=== PATIENT | male | born 1960 | race Caucasian/White ===

== ENCOUNTER → 2020-08-30 14:05 | Outpatient (BNVA) | payer MEDICARE, MEDICAID, SELFPAY | PROVIDERS: PCP Hospitalist; Visit Provider Urology | DX: R97.20 Elevated prostate specific antigen [PSA] (principal) | CPT/HCPCS: Q3014 ==

== ENCOUNTER 2020-08-31 13:44 | Outpatient (REF) | payer MEDICARE, MEDICAID, SELFPAY ==
[2020-08-31 15:39] LABS: PSA,Total (Free>4and<10) 0.08 ng/mL (0.00-4.00)
== END 2020-08-31 13:45 | disposition home or self-care (01) ==
LOC: HO.LAB 13:44
PROVIDERS: PCP Hospitalist; Visit Provider Urology
DX: R97.20 Elevated prostate specific antigen [PSA] (principal); N40.1 Benign prostatic hyperplasia with lower urinary tract symptoms; N13.8 Other obstructive and reflux uropathy; Z12.5 Encounter for screening for malignant neoplasm of prostate
CPT/HCPCS: 36415; 84153

== ENCOUNTER 2020-11-01 15:42 | Outpatient (REF) | payer MEDICARE, MEDICAID, SELFPAY | END 2020-11-01 15:43 | disposition home or self-care (01) | LOC: HO.LAB 15:42 | PROVIDERS: Visit Provider Urology | DX: R97.20 Elevated prostate specific antigen [PSA] (principal); Z12.5 Encounter for screening for malignant neoplasm of prostate | CPT/HCPCS: 36415; 84153 ==

== ENCOUNTER → 2020-11-10 14:23 | Outpatient (BNVA) | payer MEDICARE, MEDICAID, SELFPAY | PROVIDERS: PCP Internal Medicine; Visit Provider Urology | DX: Z13.89 Encounter for screening for other disorder (principal) | CPT/HCPCS: Q3014 ==

== ENCOUNTER 2021-11-23 12:20 | Outpatient (REF) | payer MEDICARE, MEDICAID, SELFPAY ==
[2021-11-23 13:58] LABS: Prostate Specific Antigen 0.14 ng/mL (<0.05-4.0)
== END 2021-11-23 12:21 | disposition home or self-care (01) ==
LOC: HO.10HDL 12:20
PROVIDERS: PCP Nurse Practitioner Family; Visit Provider Urology
DX: N40.1 Benign prostatic hyperplasia with lower urinary tract symptoms (principal); N13.8 Other obstructive and reflux uropathy; Z12.5 Encounter for screening for malignant neoplasm of prostate
CPT/HCPCS: 36415; 84153

== ENCOUNTER 2022-10-10 15:34 | Outpatient (REF) | payer MEDICARE, MEDICAID, SELFPAY ==
--- NOTE | ~2022-10-10 | US_ITS ---
EXAMINATION: US ABDOMEN COMPLETE CLINICAL INFORMATION: Liver fibrosis; hepatitis C. COMPARISON: Ultrasound abdomen complete 04/27/2020 and 11/15/2017. X-ray abdomen KUB 04/08/2015. TECHNIQUE: Real-time imaging of the abdominal viscera. FINDINGS: PANCREAS: Normal. ABDOMINAL AORTA: The proximal, mid, and distal segments are normal in caliber. INFERIOR VENA CAVA: Visualized portions are normal. LIVER: Normal. The liver is normal in size. The liver contour is normal. Parenchymal echogenicity is normal. No focal hepatic lesion. There is no intrahepatic biliary duct dilatation seen. GALLBLADDER: Normal. The gallbladder is physiologically distended without evidence of stones, sludge, polyps, wall thickening or pericholecystic fluid. COMMON BILE DUCT: Normal in caliber measuring 0.3 cm in diameter. RIGHT KIDNEY: At the upper pole, an 8 mm benign, simple cyst is seen. No hydronephrosis or renal calculi. The kidney measures 10.0 cm in maximum dimension. LEFT KIDNEY: Normal. No hydronephrosis. No renal calculi or focal parenchymal lesions. The kidney measures 10.4 cm in maximum dimension. SPLEEN: Normal. The spleen measures 12.4 cm in maximum dimension. FREE FLUID: None. US/US abdomen complete IMPRESSION: An 8 mm benign, simple right renal upper pole cyst is seen. This requires no imaging follow-up. The examination is otherwise unremarkable.
== END 2022-10-10 15:35 | disposition home or self-care (01) ==
LOC: HO.US 15:34
PROVIDERS: PCP Nurse Practitioner Family; Visit Provider Internal Medicine
DX: K74.00 Hepatic fibrosis, unspecified (principal); Z86.19 Personal history of other infectious and parasitic diseases
CPT/HCPCS: 76700

== ENCOUNTER 2022-12-19 12:22 | Outpatient (REF) | payer MEDICARE, MEDICAID, SELFPAY ==
[2022-12-19 13:50] LABS: MANUAL DIFF FLAG NO
[2022-12-19 14:06] LABS: Basophils Percent Auto 0.7 % (0-2); Hematocrit 40.1 % (42.0-52.0); Hemoglobin 13.1 g/dl (14.0-18.0); Imm Gran Abs Auto 0.01 X10*3/uL (0.00-0.03); Imm Gran Pct Auto 0.3 % (0.0-0.4); Lymphocytes Absolute Auto 0.8 X10*3/uL (1.2-4.9); Lymphocytes Percent Auto 26.1 % (20-40); Mean Corpuscular HGB Conc 32.7 g/dl (31.0-36.0); Mean Corpuscular Hemoglobin 29.6 pg (27.0-33.0); Mean Corpuscular Volume 90.7 fL (80.0-98.0); Mean Platelet Volume 10.7 fL (9.4-12.4); Monocytes Absolute Auto 0.3 X10*3/uL (0.1-1.2); Monocytes Percent Auto 9.1 % (2-11); Neutrophils Percent Auto 63.8 % (45-73); Platelet Count 188 X10*3/uL (160-400); Red Blood Count 4.42 X10*6/uL (4.60-5.80); Red Cell Distribution Width 12.8 % (11.0-16.0); White Blood Count 3.1 X10*3/uL (4.8-10.8)
[2022-12-19 14:20] LABS: Alanine Aminotransferase 20 U/L (0-40); Albumin Level 4.1 g/dL (3.5-5.0); Alkaline Phosphatase 75 U/L (39-117); Aspartate Amino Transferase 25 U/L (5-37); Bilirubin Direct 0.2 mg/dL (0.0-0.5); Bilirubin Total 0.6 mg/dL (0.0-1.0); Total Protein 6.6 g/dL (6.5-8.0)
[2022-12-21 14:38] LABS: Alpha Fetoprotein 0.8 ng/mL (<6.1)
[2022-12-25 14:58] LABS: FIB-ALT 18 U/L (9-46); FIB-Alpha-2-Macroglobulin 410 mg/dL (106-279); FIB-Apolipoprotein A1 192 mg/dL (94-176); FIB-GGT 11 U/L (3-70); FIB-Haptoglobin 74 mg/dL (43-212); FIB-Total Bilirubin 0.4 mg/dL (0.2-1.2); Liver Fibrosis Score 0.42; Liver Fibrosis Stage F1-F2; Nec Inflam Act Grade A0; Nec Inflam Act Score 0.08
== END 2022-12-19 12:23 | disposition home or self-care (01) ==
LOC: HO.10HDL 12:22
PROVIDERS: Visit Provider Internal Medicine
DX: K74.00 Hepatic fibrosis, unspecified (principal); Z86.19 Personal history of other infectious and parasitic diseases
CPT/HCPCS: 36415; 80076; 81596; 82105; 85025; 85610

== ENCOUNTER 2023-03-07 08:23 | Day surgery (SDC) | payer MEDICARE, MEDICAID, SELFPAY ==
[2023-03-07 08:53] VITALS: BMI 28.8
[2023-03-07 09:10] VITALS: BP 131/74; PULSE 67; RESP 18; TEMP 36.1; O2SAT 95
[2023-03-07] MEDS: Lactated Ringers 1,000 ML 100 ML IVCONT (09:12)
--- NOTE | 2023-03-07 09:35 | P.CONAN_ITS ---
HPI - Anesthesia Eval Consult details Narrative: 63 yo male patient for EGD, Colonoscopy PMF Active Problems Active Problems: All Active Problems (Updated 03/07/23 @ 09:36 by Rufina Blas MD) Elevated PSA (Acute) GERD Migraine Past Medical History Medical History Asthma BPH (benign prostatic hyperplasia) Chronic hepatitis C Depression Elevated PSA Hypothyroidism Nephrotic syndrome Substance abuse Thyroiditis Family History Family history of problems with anesthesia: No Surgical History Surgical History H/O esophagogastroduodenoscopy History of prostate surgery History of Problems with Anesthesia: No Social History Social History Patient Tobacco Use Status: Former Tobacco user Quit Date: age 29 Use of substances other than those prescribed or required for medical reasons: Yes Substance Use Type Other:: methadone for previous heroine use, last used 2013 Are you DNR?: No Advance Directives: No Advance Directives Information Provided: Yes Meds Allergies Allergy/AdvReac Type Severity Reaction Status Date / Time No Known Allergies Allergy Mild NOT Verified 11/10/20 14:25 APPLICABLE Active Medications: Current Medications Albuterol Sulfate (Albuterol Sulfate (0.083%) 2.5 Mg/3 Ml Vial.Neb) 2.5 mg I NHALE ONCE PRN PRN Reason: Shortness of Breath/Wheezing Lactated Ringer's (Lr) 1,000 mls @ 100 mls/hr IVCONT .Q10H FABRICIO Last Admin: 03/07/23 09:12 Dose: 100 mls/hr Sodium Biphosphate/Sodium Phosphate (Sodium Phosphate,Pender-Dibasic 133 Ml Enema) 133 ml [place] ONCE PRN PRN Reason: Poor Colonoscopy Prep Results Home Medications Medication Instructions Recorded Confirmed Last Taken Type levothyroxine 50 mcg tablet 50 mcg PO DAILY 08/30/20 03/07/23 03/07/23 History ondansetron HCl 4 mg tablet 4 mg PO Q8H PRN Nausea 08/30/20 03/07/23 Unknown History sumatriptan succinate 100 mg tablet 100 mg PO DIRECTED 11/10/20 03/07/23 Unknown History CoQ-10 1 tab PO DAILY 03/06/23 03/07/23 Unknown History Vitamin D (with calcium) 1 tab PO DAILY 03/06/23 03/07/23 Unknown History famotidine 40 mg tablet 40 mg PO BID 03/06/23 03/06/23 03/07/23 History methadone 1 ml PO DAILY 03/06/23 03/07/23 Unknown History omega 3-vjg-xcy-fish oil 1,000 mg 1 cap PO DAILY 03/06/23 03/07/23 Unknown History (120 mg-180 mg) capsule (Fish Oil) vitamin E73-ksqbq acid 1 tab PO DAILY 03/06/23 03/07/23 Unknown History Exam Exam Date and Time: March 07, 2023 0935 Height,Weight and Vital Signs: Height 5 ft 9 in Weight 88.451 kg Last Vital Signs Temp 96.9 F 03/07/23 09:10 Pulse 67 03/07/23 09:10 Resp 18 03/07/23 09:10 BP 131/74 03/07/23 09:10 Pulse Ox 95 03/07/23 09:10 O2 Del Method Room Air 03/07/23 09:10 Airway Mallampati Class: I TM Dist: >3cm Neck ROM: Full Loose/Missing/Broken Teeth: Yes (Loose tooth top right back) Heart: RRR Lungs: CTAB Assessment and Plan Assessment Anesthesia Assessment: Anesthesia Plan Discussed and Chart Reviewed Final Anesthetic Review Family History of Problems with Anesthesia: No History of Problems with Anesthesia: No NPO: Yes ASA Class: III Final Preanesthetic Review: No Changes in Pt Med Stat, Meds/Allgs Chart Reviewed, Consent Obtained/Reviewed and Anes Risks/Benef Reviewed Patient Risk: Intermediate Procedure Risk: Low Assessment/Block/Sedation in SS: Assess/Block/Sedation-SS Anesthetic Plan Anesthetic Plan: MAC: Disposition: Standard PACU
[2023-03-07 10:43] VITALS: BP 102/63; PULSE 65; RESP 16; TEMP 36.1; O2SAT 96
--- NOTE | 2023-03-07 10:46 | P.BOP_ITS ---
Brief Operative Note Date of Service: 03/07/23 Pre-op diagnosis: GERD, Steele's, Screening Post-op diagnosis: other (Hiatal hernia, Diverticulosis) Procedure: EGD with biopsies, Colonoscopy to the cecum and TI Surgeon: Dex Garsia Anesthesia: MAC Was an Senior Cyber Intelligence Analyst used for this Procedure?: No Estimated blood loss (mL): 2.0 Pathology: other (A. EG Junction at 35cm) Condition: stable Disposition: PACU
[2023-03-07 10:57] VITALS: BP 107/64; PULSE 76; RESP 16; TEMP 36.1; O2SAT 96
--- NOTE | 2023-03-07 12:59 | OP_ITS ---
DATE OF SERVICE: 03/07/2023 SURGEON: Dex Garsia MD INDICATIONS: The patient presents for evaluation of gastroesophageal reflux, Steele's esophagus, personal history of tubular adenoma of the colon, and colorectal cancer screening. Full consent has been obtained from him for this, including risks of bleeding and perforation. PREOPERATIVE DIAGNOSIS: POSTOPERATIVE DIAGNOSIS: PROCEDURE PERFORMED: Esophagogastroduodenoscopy with biopsies, and colonoscopy to the cecum and terminal ileum. ESTIMATED BLOOD LOSS: COMPLICATIONS: ANESTHESIA: Monitored anesthesia care. ASSISTANTS: SPECIMENS: PREOPERATIVE DIAGNOSES: Gastroesophageal reflux, history of Steele's esophagus, colorectal cancer screening, history of tubular adenoma of the colon. POSTOPERATIVE DIAGNOSES: Gastroesophageal reflux, history of Steele's esophagus, colorectal cancer screening, history of tubular adenoma of the colon, hiatal hernia, diverticulosis, internal hemorrhoids. DESCRIPTION OF PROCEDURE: The patient was placed in the left lateral decubitus position. The Olympus video gastroscope was passed in the posterior oropharynx and upper esophagus under direct vision. The scope was passed slowly to the distal esophagus. The gastroesophageal junction appeared at 35 cm. There was some very minimal irregularity consistent with reflux and possible small areas of Steele's mucosa. There was no esophagitis nor any lesions. The scope was advanced to the pylorus and the duodenum was cannulated to the descending portion. The duodenum including the bulb appeared normal without mass or ulceration. The scope was withdrawn back in the stomach. The gastric antrum and body appeared normal with good peristalsis. The scope was retroflexed visualizing the proximal stomach carefully, which appeared normal, without any sign of mass or ulceration. The scope was straightened and withdrawn back to the esophagus. A small hiatal hernia was noted. Biopsies were obtained at the EG junction at 35 cm. Proximal to that, the esophageal mucosa appeared normal. The scope was withdrawn from the patient. He was turned around for the colonoscopy. The digital rectal exam revealed no abnormalities. The Olympus video pediatric colonoscope was entered into the rectum and advanced easily to the cecum. Once in the cecum, I did identify normal-appearing cecal pouch with appendiceal orifice and a normal-appearing ileocecal valve. The terminal ileum was cannulated and appeared normal. The scope was withdrawn back in the colon. The entire cecum and ileocecal valve appeared normal. The scope was slowly withdrawn assessing all mucosal surfaces carefully. Preparation was excellent. I did not visualize any sign of polyps, colitis, nor angiodysplasia. There was a mild amount of sigmoid diverticulosis. In the rectum, scope was retroflexed visualizing internal hemorrhoids, but no other pathology. The rectal mucosa appeared normal. The scope was straightened and withdrawn from the patient, he tolerated both procedures well and was returned to the recovery area in stable condition. IMPRESSION: 1. Small hiatal hernia, gastroesophageal reflux, history of Steele's esophagus. 2. Diverticulosis. 3. Internal hemorrhoids. PLAN: The results of the biopsies will be checked. I would recommend a repeat upper endoscopy and colonoscopy in 5 years, assuming there is no dysplasia within the Steele's mucosa. He will continue famotidine. He was advised to continue Metamucil as well. He was advised to see me in 2023 for followup in regard to his previous history of hepatitis C. MD SHAD Durán/ALESSIO / [id number] MTDD
== END 2023-03-07 11:30 | disposition home or self-care (01) ==
PROVIDERS: PCP Nurse Practitioner Family; Visit Provider Internal Medicine
PROC: (CPT 43239; principal; 2023-03-07 09:30)
DX: Z12.11 Encounter for screening for malignant neoplasm of colon (principal); Z86.010 Personal history of colon polyps; K57.30 Diverticulosis of large intestine without perforation or abscess without bleeding; K64.8 Other hemorrhoids; K58.2 Mixed irritable bowel syndrome; K74.00 Hepatic fibrosis, unspecified; K22.70 Barrett's esophagus without dysplasia; K21.9 Gastro-esophageal reflux disease without esophagitis; K44.9 Diaphragmatic hernia without obstruction or gangrene; Z86.19 Personal history of other infectious and parasitic diseases; N04.9 Nephrotic syndrome with unspecified morphologic changes; F11.20 Opioid dependence, uncomplicated; J45.909 Unspecified asthma, uncomplicated; Z79.899 Other long term (current) drug therapy; Z87.891 Personal history of nicotine dependence
CPT/HCPCS: 43239; G0105; 88305

== ENCOUNTER 2023-09-27 08:57 | Outpatient (REF) | payer MEDICARE, MEDICAID, SELFPAY ==
--- NOTE | ~2023-09-27 | US_ITS ---
EXAMINATION: US COMPLETE ABDOMEN WITH LIVER ELASTOGRAPHY CLINICAL INFORMATION: History of hepatitis C, with hepatic fibrosis. COMPARISON: None available. TECHNIQUE: Real-time imaging of the abdominal viscera. Noninvasive ultrasound liver fibrosis assessment is performed using Shubham ElastPQ point quantification shear wave elastography (2D-SWE) with a C5-2 MHz transducer. Multiple elastography samples are obtained. FINDINGS: PANCREAS: Limited. The visualized pancreatic head and body are normal in appearance. The remainder of the pancreas is obscured from visualization by the overlying bowel gas. ABDOMINAL AORTA: The proximal, middle, and distal aortic segments are normal in caliber. INFERIOR VENA CAVA: Visualized portions are normal. LIVER: The liver demonstrates normal size, contour and increased echogenicity. No focal lesion or intrahepatic biliary duct dilatation. The right lobe measures 13.8 cm in length. The left lobe measures 8.7 cm in length. Portal flow is towards the liver (hepatopetal). Shear wave liver elastography median stiffness is 1.27 m/s (reference: normal median stiffness is 1.3 m/s or less). IQR/median stiffness to assess sampling precision is 0.05 (reference: good quality data set is IQR/median stiffness of 0.15 or less). GALLBLADDER: Normal. The gallbladder is physiologically distended without evidence of stones, sludge, polyps, wall thickening or pericholecystic fluid. COMMON BILE DUCT: Normal in caliber measuring 0.6 cm in diameter. RIGHT KIDNEY: A 9 mm benign, simple cyst is seen at the upper pole, for which no imaging follow-up is recommended. No hydronephrosis. No renal calculi or focal parenchymal lesions. The kidney measures 9.6 cm in maximum dimension. LEFT KIDNEY: Normal. No hydronephrosis. No renal calculi or focal parenchymal lesions. The kidney measures 10.0 cm in maximum dimension. SPLEEN: No focal finding. The spleen measures 13.2 cm in maximum dimension. FREE FLUID: None. US/US abdomen comp w elastography IMPRESSION: 1. There is generalized increase in hepatic echotexture, consistent with fatty infiltration or hepatocellular disease. Please correlate clinically. No focal hepatic mass or intrahepatic biliary dilatation is seen. 2. Liver elastography: Measurements are consistent with a high probability of normal liver stiffness. 3. There is mild splenomegaly. 4. Technically limited ultrasound examination of the pancreatic tail. REFERENCE: Society of Radiologists in Ultrasound Liver Stiffness Thresholds (2020): LIVER STIFFNESS THRESHOLDS: *Liver Stiffness equal or less than 1.3 m/s: High probability of being normal. *Liver Stiffness less than 1.7 m/s: In the absence of other known clinical signs, rules out compensated advanced chronic liver disease. *Liver Stiffness 1.7-2.1 m/s: Suggestive of compensated advanced chronic liver disease but need further test for confirmation. *Liver Stiffness over 2.1 m/s: Rules in compensated advanced chronic liver disease. *Liver Stiffness over 2.4 m/s: Suggestive of clinically significant portal hypertension. QUALITY OF DATA SET: *IQR/Median value equal or less than 0.15 implies a quality data set. *IQR/Median value over 0.15 implies a poor quality data set. SIGNIFICANT CHANGE FROM PRIOR EXAM: Significant change if liver stiffness measurement is 10% or greater from prior exam. OTHER CONSIDERATIONS: The stage of liver fibrosis may be overestimated in the setting of acute hepatitis, liver inflammation, elevated liver function tests, hepatic vascular congestion, obstructive cholestasis, non-fasting state, and infiltrative diseases such as amyloidosis and lymphoma. In some patients with NAFLD, the liver stiffness thresholds for compensated advanced chronic liver disease may be lower. In causes other than viral hepatitis and NAFLD, liver stiffness thresholds are not well established.
== END 2023-09-27 08:58 | disposition home or self-care (01) ==
LOC: HO.US 08:57
PROVIDERS: PCP Nurse Practitioner Family; Visit Provider Internal Medicine
DX: K74.00 Hepatic fibrosis, unspecified (principal); Z86.19 Personal history of other infectious and parasitic diseases
CPT/HCPCS: 76700; 76981

== ENCOUNTER 2023-12-26 06:42 | Day surgery (SDC) | payer MEDICARE, MEDICAID, SELFPAY ==
[2023-12-24 14:00] VITALS: BMI 28.9
--- NOTE | 2023-12-25 09:38 | P.CONAN_ITS ---
HPI - Anesthesia Eval Consult details Narrative: 63yo M for Upper Endoscopy Methadone daily PMFSH Active Problems Active Problems: All Active Problems Elevated PSA (Acute) Past Medical History Medical History Nephrotic syndrome Asthma Substance abuse Depression Thyroiditis Chronic hepatitis C Hypothyroidism BPH (benign prostatic hyperplasia) Elevated PSA Family History Family history of problems with anesthesia: No Surgical History Surgical History H/O colonoscopy H/O esophagogastroduodenoscopy History of prostate surgery History of Problems with Anesthesia: No Social History Social History Patient Tobacco Use Status: Former Tobacco user Are you DNR?: No Advance Directives: No Advance Directives Information Provided: Yes Meds Allergies Allergy/AdvReac Type Severity Reaction Status Date / Time No Known Allergies Allergy Mild NOT Verified 11/10/20 14:25 APPLICABLE Home Medications ?Medication ?Instructions ?Recorded ?Confirmed ?Last Taken ?Type levothyroxine 50 mcg tablet 50 mcg PO DAILY 08/30/20 12/24/23 03/07/23 History ondansetron HCl 4 mg tablet 4 mg PO Q8H PRN Nausea 08/30/20 12/24/23 Unknown Hi story sumatriptan succinate 100 mg tablet 100 mg PO DIRECTED 11/10/20 12/24/23 Unknown History famotidine 40 mg tablet 40 mg PO BID 03/06/23 12/24/23 03/07/23 History omega 1-xdt-kzn-fish oil 1,000 mg 1 cap PO DAILY 03/06/23 12/24/23 Unknown History (120 mg-180 mg) capsule (Fish Oil) cholecalciferol (vitamin D3) 50 50 mcg PO DAILY 12/24/23 12/24/23 Unknown History mcg (2,000 unit) capsule (Vitamin D3) coQ10 (ubiquinol) 100 mg capsule 100 mg PO DAILY 12/24/23 12/24/23 Unknown History cyanocobalamin (vitamin B-12) 500 500 mcg PO DAILY 12/24/23 12/24/23 Unknown Hi story mcg tablet (Vitamin B-12) methadone 10 mg/mL oral concentrate 64 mg PO DAILY 12/24/23 12/26/2312/24/24 09:00 History Exam Height,Weight and Vital Signs: Height 5 ft 8.5 in Weight 87.543 kg Assessment and Plan Assessment Anesthesia Assessment: Chart Reviewed Final Anesthetic Review Family History of Problems with Anesthesia: No History of Problems with Anesthesia: No
[2023-12-26 08:39] VITALS: BMI 29.4
--- NOTE | 2023-12-26 08:54 | P.CONAN_ITS ---
[facility] Active Problems Active Problems: All Active Problems Elevated PSA (Acute) Past Medical History Medical History Nephrotic syndrome Asthma Substance abuse Depression Thyroiditis Chronic hepatitis C Hypothyroidism BPH (benign prostatic hyperplasia) Elevated PSA Functional capacity: independent ambulation Family History Family history of problems with anesthesia: No Surgical History Surgical History H/O colonoscopy H/O esophagogastroduodenoscopy History of prostate surgery History of Problems with Anesthesia: No Social History Social History Patient Tobacco Use Status: Former Tobacco user Quit Date: 40 yr ago Are you DNR?: No Advance Directives: No Advance Directives Information Provided: Yes Meds Allergies Allergy/AdvReac Type Severity Reaction Status Date / Time No Known Allergies Allergy Mild NOT Verified 11/10/20 14:25 APPLICABLE Active Medications: Current Medications Albuterol Sulfate (Albuterol Sulfate (0.083%) 2.5 Mg/3 Ml Vial.Neb) 2.5 mg INHALE ONCE PRN PRN Reason: Shortness of Breath/Wheezing Lactated Ringer's (Lr) 1,000 mls @ 100 mls/hr IVCONT .Q10H FABRICIO Home Medications ?Medication ?Instructions ?Recorded ?Confirmed ?Last Taken ?Type levothyroxine 50 mcg tablet 50 mcg PO DAILY 08/30/20 12/24/23 03/07/23 History ondansetron HCl 4 mg tablet 4 mg PO Q8H PRN Nausea 08/30/20 12/24/23 Unknown History sumatriptan succinate 100 mg tablet 100 mg PO DIRECTED 11/10/20 12/24/23 Unknown History famotidine 40 mg tablet 40 mg PO BID 03/06/23 12/24/23 03/07/23 History omega 8-xfh-exz-fish oil 1,000 mg 1 cap PO DAILY 03/06/23 12/24/23 Unknown History (120 mg-180 mg) capsule (Fish Oil) cholecalciferol (vitamin D3) 50 50 mcg PO DAILY 12/24/23 12/24/23 Unknown Hist ory mcg (2,000 unit) capsule (Vitamin D3) coQ10 (ubiquinol) 100 mg capsule 100 mg PO DAILY 12/24/23 12/24/23 Unknown History cyanocobalamin (vitamin B-12) 500 500 mcg PO DAILY 12/24/23 12/24/23 Unknown History mcg tablet (Vitamin B-12) methadone 10 mg/mL oral concentrate 64 mg PO DAILY 12/24/23 12/26/23 12/25/23 09:00 History Exam Height,Weight and Vital Signs: Height 5 ft 8.5 in Weight 89.131 kg Airway Mallampati Class: III TM Dist: >3cm Neck ROM: Full Heart: RRR Lungs: CTA Assessment and Plan Assessment Anesthesia Assessment: Anesthesia Plan Discussed Final Anesthetic Review Family History of Problems with Anesthesia: No History of Problems with Anesthesia: No ASA Class: III Final Preanesthetic Review: Meds/Allgs Chart Reviewed, Consent Obtained/Reviewed and Anes Risks/Benef Reviewed
[2023-12-26 09:03] VITALS: BP 128/66; PULSE 49; RESP 18; TEMP 35.9; O2SAT 98
[2023-12-26] MEDS: Lactated Ringers 1,000 ML 100 ML IVCONT (09:12)
--- NOTE | 2023-12-26 10:40 | HO.ANESPROP2 ---
[facility] Active Problems Active Problems: All Active Problems Elevated PSA (Acute) Past Medical History Medical History Nephrotic syndrome Asthma Substance abuse Depression Thyroiditis Chronic hepatitis C Hypothyroidism BPH (benign prostatic hyperplasia) Elevated PSA Functional capacity: independent ambulation Family History Family history of problems with anesthesia: No Surgical History Surgical History H/O colonoscopy H/O esophagogastroduodenoscopy History of prostate surgery History of Problems with Anesthesia: No Social History Social History Patient Tobacco Use Status: Former Tobacco user Quit Date: 40 yr ago Are you DNR?: No Advance Directives: No Advance Directives Information Provided: Yes Meds Allergies Allergy/AdvReac Type Severity Reaction Status Date / Time No Known Allergies Allergy Mild NOT Verified 11/10/20 14:25 APPLICABLE Active Medications: Current Medications Albuterol Sulfate (Albuterol Sulfate (0.083%) 2.5 Mg/3 Ml Vial.Neb) 2.5 mg INHALE ONCE PRN PRN Reason: Shortness of Breath/Wheezing Lactated Ringer's (Lr) 1,000 mls @ 100 mls/hr IVCONT .Q10H FABRICIO Last Admin: 12/26/23 09:12 Dose: 100 mls/hr Home Medications ?Medication ?Instructions ?Recorded ?Confirmed ?Last Taken ?Type levothyroxine 50 mcg tablet 50 mcg PO DAILY 08/30/20 12/24/23 03/07/23 History ondansetron HCl 4 mg tablet 4 mg PO Q8H PRN Nausea 08/30/20 12/24/23 Unknown History sumatriptan succinate 100 mg tablet 100 mg PO DIRECTED 11/10/20 12/24/23 Unknown History famotidine 40 mg tablet 40 mg PO BID 03/06/23 12/24/23 03/07/23 History omega 2-csa-obp-fish oil 1,000 mg 1 cap PO DAILY 03/06/23 12/24/23 Unknown History (120 mg-180 mg) capsule (Fish Oil) cholecalciferol (vitamin D3) 50 50 mcg PO DAILY 12/24/23 12/24/23 Unknown History mcg (2,000 unit) capsule (Vitamin D3) coQ10 (ubiquinol) 100 mg capsule 100 mg PO DAILY 12/24/23 12/24/23 Unknown History cyanocobalamin (vitamin B-12) 500 500 mcg PO DAILY 12/24/23 12/24/23 Unknown History mcg tablet (Vitamin B-12) methadone 10 mg/mL oral concentrate 64 mg PO DAILY 12/24/23 12/26/23 12/25/23 09:00 History Exam Height,Weight and Vital Signs: Height 5 ft 8.5 in Weight 89.131 kg Last Vital Signs Temp 96.7 F L 12/26/23 09:03 Pulse 49 L 12/26/23 09:03 Resp 18 12/26/23 09:03 BP 128/66 12/26/23 09:03 Pulse Ox 98 12/26/23 09:03 Airway Mallampati Class: II TM Dist: >3cm Neck ROM: Full Heart: RRR Lungs: CTA Assessment and Plan Assessment Anesthesia Assessment: Anesthesia Plan Discussed and Smoking Cess. Discussed Final Anesthetic Review Family History of Problems with Anesthesia: No History of Problems with Anesthesia: No NPO: Yes ASA Class: III Final Preanesthetic Review: Meds/Allgs Chart Reviewed and Consent Obtained/Reviewed Patient Risk: Low Procedure Risk: Low Anesthetic Plan Anesthetic Plan: MAC: Disposition: Standard PACU
[2023-12-26 10:52] VITALS: BP 113/67; PULSE 55; RESP 16; TEMP 36.1; O2SAT 97
--- NOTE | 2023-12-26 10:59 | P.BOP_ITS ---
Brief Operative Note Date of Service: 12/26/23 Pre-op diagnosis: Steele's Post-op diagnosis: other (Same, Hiatal hernia) Procedure: EGD with Bx, WATS brushings, and TissueCyper Surgeon: Dex Garsia MD Anesthesia: MAC Was an Curriculum Development Specialist used for this Procedure?: No Estimated blood loss (mL): 2.0 Pathology: other (A. EG Junction at 35cm) Condition: stable Disposition: PACU
[2023-12-26 11:00] VITALS: BP 108/72; PULSE 60; RESP 17; O2SAT 95
--- NOTE | 2023-12-26 11:22 | OP_ITS ---
DATE OF SERVICE: 12/26/2023 SURGEON: Dex Garsia MD INDICATIONS: The patient presents for evaluation of Steele's esophagus with indefinite low-grade dysplasia. Full consent has been obtained from him for this, including risks of bleeding and perforation. PREOPERATIVE DIAGNOSIS: POSTOPERATIVE DIAGNOSIS: PROCEDURE PERFORMED: Esophagogastroduodenoscopy with biopsies, WATS brushings, and specimen sent for tissue Cypher analysis. ESTIMATED BLOOD LOSS: COMPLICATIONS: ANESTHESIA: Monitored anesthesia care. ASSISTANTS: SPECIMENS: PREOPERATIVE DIAGNOSES: Gastroesophageal reflux and history of Steele's esophagus with indefinite low-grade dysplasia. POSTOPERATIVE DIAGNOSES: Gastroesophageal reflux, history of Steele's esophagus with indefinite low- grade dysplasia, and hiatal hernia. DESCRIPTION OF PROCEDURE: The patient was placed in the left lateral decubitus position. The Olympus video gastroscope was passed in the posterior oropharynx and upper esophagus under direct vision. The scope was passed slowly to the distal esophagus. The gastroesophageal junction appeared at 35 cm. At this level, were 2 or 3 areas of very small probable Steele's mucosa. They were only several mm above the EG junction. There was no esophagitis, erosions, nor ulceration. The scope entered the stomach. There was a small hiatal hernia. The scope was advanced to the pylorus and the duodenum was cannulated to the descending portion. The duodenum including the bulb appeared normal, without any mass or ulceration. The scope was withdrawn back in the stomach. The gastric antrum and body appeared normal with good peristalsis. The scope was retroflexed visualizing the proximal stomach carefully, which appeared normal, without any sign of mass or ulceration. There was no evidence of any varices nor portal gastropathy. The scope was straightened and withdrawn back to the esophagus. I initially obtained multiple biopsies of the EG junction at 35 cm. I then obtained WATS brushings from the EG junction at 35 cm. Proximal to this, the esophageal mucosa appeared normal. The scope was withdrawn from the patient. He tolerated the procedure well and was returned to the recovery area in stable condition. IMPRESSION: History of Steele's esophagus with indefinite low-grade dysplasia, status post biopsies, WATS brushings, and tissue Cypher analysis. PLAN: The results of the biopsies will be checked. Based on those results, we would then determine whether he needs a repeat endoscopy within 1 to 2 years, or if he might need referral for an endoscopic ablation of the Steele's. He will continue his famotidine as he cannot tolerate PPIs. He will also be seen within 1 year for followup of the previous history of hepatitis C. This has been discussed with his . MD SHAD Durán/ALESSIO / [id number] MTDD
--- NOTE | 2023-12-26 16:50 | HO.POSTANES ---
Post Anesthesia Evaluation Post Anesthesia Evaluation Date of Service: 12/26/23 Vital Signs: Vital Signs Temp Pulse Resp BP Pulse Ox O2 Del Method 12/26/23 11:00 60 17 108/72 95 Room Air 12/26/23 10:52 97 F 55 16 113/67 97 Room Air 12/26/23 09:03 96.7 F L 49 L 18 128/66 98 Anesthesia: Monitored Mental Status: Awake Pain Control: Satisfactory Nausea/Vomiting: None Hydration: Adequate Anesthesia-Related Issues: No Anes. Related Issues
== END 2023-12-26 12:15 | disposition home or self-care (01) ==
PROVIDERS: PCP Nurse Practitioner Family; Visit Provider Internal Medicine
PROC: 0DJ08ZZ Inspection of Upper Intestinal Tract, Via Natural or Artificial Opening Endoscopic (ICD-10-PCS; CPT 43235; principal; 2023-12-26 10:20)
DX: K22.710 Barrett's esophagus with low grade dysplasia (principal); K44.9 Diaphragmatic hernia without obstruction or gangrene; K21.9 Gastro-esophageal reflux disease without esophagitis; J45.909 Unspecified asthma, uncomplicated; B18.2 Chronic viral hepatitis C; F11.20 Opioid dependence, uncomplicated; Z79.899 Other long term (current) drug therapy; Z87.891 Personal history of nicotine dependence
CPT/HCPCS: 43239; 88305; 88313; J1596; J2704

== ENCOUNTER 2024-10-03 10:27 | Outpatient (REF) | payer MEDICARE, MEDICAID, SELFPAY ==
--- NOTE | ~2024-10-03 | US_ITS ---
EXAMINATION: US ABDOMEN COMPLETE WITH LIVER ELASTOGRAPHY HISTORY: LIVER FIBROSIS TECHNIQUE: Real-time grayscale ultrasound imaging of the abdomen was performed and images were reviewed. COMPARISON: Comparison is made with the prior examination dated 09/27/2023. FINDINGS: Liver: The right lobe of the liver measures 12.8 cm in size. The left lobe of the liver measures 6.1 cm in size. The liver demonstrates coarsened echotexture. No focal mass or intrahepatic biliary ductal dilatation is identified. There is normal hepatopedal flow in the portal vein. Ultrasound elastography of the liver was performed with 10 separate measurements of the liver parenchyma with the patient in the supine position. Measurements were obtained approximately 2 cm below Bob's capsule and perpendicular to the capsule. Images are of satisfactory quality. The median shear wave velocity is 1.49 m/s (previously 1.27 m/s). The interquartile range/median (IQR/median) is 0.11. Gallbladder and biliary tree: The gallbladder is unremarkable, without evidence of calculi, wall thickening, or pericholecystic fluid. There is no sonographic Weaver sign. The common bile duct is normal in caliber measuring 9 mm. Kidneys: Right kidney measures 9.2 cm in length and demonstrates an upper pole cyst measuring 8 x 9 x 11 mm. The left kidney measures 10.3 cm in length and demonstrates an interpolar cyst measuring 7 x 7 x 8 mm. The kidneys are otherwise unremarkable, without evidence of solid masses, hydronephrosis, or calculi. Pancreas: The pancreatic head and neck are unremarkable. The remainder the pancreas is obscured by bowel gas. Spleen: The spleen is normal in size and contour, measuring 10.7 cm in length. Abdominal aorta and inferior vena cava: The visualized portions of the abdominal aorta and inferior vena cava are normal in caliber. There is no free fluid in the abdomen. US/US abdomen comp w elastography IMPRESSION: Mildly coarsened hepatic echotexture. The liver is otherwise unremarkable in appearance. Bilateral renal cysts as described. The median shear wave velocity is 1.49 m/s, corresponding to a median liver stiffness of 6.68 kPa. The IQR/median value is 0.11. This is indicative of a quality data set. Findings are indicative of a low elastography value which rules out advanced chronic liver disease in asymptomatic patients. REFERENCE: Society of Radiologists in Ultrasound Liver Stiffness Thresholds (2020): LIVER STIFFNESS THRESHOLDS: *Shear wave velocity less than 1.3 m/s (Liver Stiffness equal or less than 5 kPa): High probability of being normal. *Shear wave velocity less than 1.7 m/s (Liver Stiffness less than 9 kPa): In the absence of other known clinical signs, rules out compensated advanced chronic liver disease. *Shear wave velocity between 1.7-2.1 m/s (Liver Stiffness 9-13 kPa): Suggestive of compensated advanced chronic liver disease but need further test for confirmation. *Shear wave velocity between 2.1-2.4 m/s (Liver Stiffness 13-17 kPa): Rules in compensated advanced chronic liver disease. *Shear wave velocity greater than 2.4 m/s (Liver Stiffness over 17 kPa): Suggestive of clinically significant portal hypertension. QUALITY OF DATA SET: *IQR/Median value equal or less than 0.15 implies a quality data set. *IQR/Median value over 0.15 implies a poor quality data set. SIGNIFICANT CHANGE FROM PRIOR EXAM: Significant change if liver stiffness measurement is 10% or greater from prior exam. OTHER CONSIDERATIONS: The stage of liver fibrosis may be overestimated in the setting of acute hepatitis, liver inflammation, elevated liver function tests, hepatic vascular congestion, obstructive cholestasis, non-fasting state, and infiltrative diseases such as amyloidosis and lymphoma. In some patients with NAFLD, the liver stiffness thresholds for compensated advanced chronic liver disease may be lower. In causes other than viral hepatitis and NAFLD, liver stiffness thresholds are not well established. Electronically signed by: Dex Florentino MD 10/06/2024 07:19 AM [facility]
--- OUTSIDE RECORDS SUMMARY | 2024-10-03 11:48 | XMS_ITS | Encounter Summary ---
Author Organization [employer] Address [address] [facility] [address] [place] [address] Care Team Providers Care Plate Worker Helper Name Role Phone Unavailable Primary Care Provider Unavailabl e Encounter Details Date Type Department Care Team (Latest Contact Info) Description 06/02/2019 Abstract [facility] CONVERSIONS Dental, Provider, DDS Social History Tobacco Use Types Packs/Day Years Used Date Smoking Tobacco: Never Assessed Sex and Gender Information Value Date Recorded Sex Assigned at Male 06/05/2022 10:25 AM EDT Legal Sex Male 10:25 AM EDT Gender Identity Choose not to disclose 10:25 AM EDT Sexual Orientation Choose not to disclose 2021 10:25 AM EDT documented as of this encounter Plan of Treatment Upcoming Encounters Date Type Department Care Team (Late st Contact Info) Description 10/08/2024 3:15 PM EST Office Visit [facility] ADULT DENTAL [address] [place] [address] Vignesh Thompson, SKINNY [address] [place] [address] documented as of this encounter Visit Diagnoses Not on filedocumented in this encounter
--- OUTSIDE RECORDS SUMMARY | 2024-10-03 11:48 | XMS_ITS | Encounter Summary ---
Author Organization [facility] Address [address] [place] [address] Phone Care Team Providers Care Machine Operator Hay Stacker Name Role Phone Marcell Moya MD Primary Care Provider [phone] Encounter Details Date Type Department Care Team (Late st Contact Info) Description 02/04/2021 Orders Only [facility] [address] [place] [address] Melvin Torres MD [address] [place] [address], [address] [address] Nephrotic syndrome with minor glomerular abnormality Social History Tobacco Use Types Packs/Day Years Used Date Smoking Tobacco: Former Cigarettes Smokeless Tobacco: Never Sex and Gender Information Value Date Recorded Sex Assigned at Not on file Legal Sex Male 9:46 AM EDT Gender Identity Not on file Sexual Orientation Not on file COVID-19 Exposure Response Date Recorded In the last month, have you been in contact with someone who was confirmed or suspected to have Coronavirus / COVID-19? No / Unsure 01/05/2021 10:40 AM EDT documented as of this encounter Plan of Treatment Not on file documented as of this encounter Visit Diagnoses Diagnosis Nephrotic syndrome with minor glomerular abnormality documented in this encounter Care Teams Machine Operator Hay Stacker Relationship Specialty Start Date End Date Marcell Moya MD [address] [place] PCP - General Internal Medicine 12/17/20 documented as of this encounter
--- OUTSIDE RECORDS SUMMARY | 2024-10-03 11:48 | XMS_ITS ---
Author Organization [facility] Address [address] [place] [address] Care Team Providers Care Supervisor Carpenters Name Role Phone Kostas Boone MD Primary Care Provider Vanessa Easton Unavailable [phone] Allergies No Known Allergies REASON FOR VISIT Skin Problem, Foot pain Medications Medication SIG (Take, Route, Frequency, Duration) Notes Start Date End Date Status Levothyroxine Sodium Active Ciclopirox Olamine 0.77 % 1 application Externally Twice a day to skin of feet including between the toes for 30 days Active Famotidine Active Social History Tobacco Use: Social History Observation Description Date Details (start date - stop date) Never Smoker NA - NA Tobacco use other than smoking: Question Answer Notes Are you an other tobacco user? No Tobacco Control (Standard) Question Answer Notes Tobacco use: Nonsmoker Additional Findings: Tobacco non-user Current no nsmoker AUDIT-C (Standard) Question Answer Notes Did you have a drink containing alcohol in the p ast year? No Points 0 Interpretation Negative Vital Signs Height 5ft 9in in 09/02/2024 Weight 190 lbs 09/02/2024 BMI 28.06 kg/m2 09/02/2024 Blood pressure systolic 110 mm Hg 09/02/19 25 Blood pressure diastolic 70 mm Hg 025 Encounters Encounter Location Date Provider Diagnosis [facility] [address] [place] [address] 09/02/2024 Vanessa Hartman Tinea pedis of both feet B35.3 ; Pain in left foot M79.672 and Metatarsalgia, left foot M77.42 Assessments Encounter Date Diagnosis (ICD Code) Assessment Notes Treatment Notes Treatment Clinical Notes Section Notes 09/02/2024 Tinea pedis of both feet (ICD-10 - B35.3) 09/02/2024 Pain in left foot (ICD-10 - M79.672) 09/02/2024 Metatarsalgia, left foot (ICD-10 - M77.42) Plan Of Treatment Medication Medication Name Sig Start Date Stop Date Notes Ciclopirox Olamine 0.77 % 1 application Externally Twice a day to skin of feet including between the toes for 30 days Next Appt Details Follow Up: prn, Reason: Progress Notes * Kostas DUNNDOB:1960 (64 yo M)Acc No.[id number]:09/02/2024 Progress Notes Patient:?Kostas DUNN Provider:?Vanessa Hartman DPM :1960???Age:64 Y???Sex:Male Duane e:09/02/2024 Address:[facility] [address] [facility] [id number] Pcp:Kostas Boone MD Subjective: * Chief Complaints: * ???Skin ProblemFoot pain * HPI: ???Skin problems:?Nature:?scaling , redness, flaking black dots to feet.?Location:?B/L .?Duration:?a few months.?Course:?intermittent; no black dots at the moment to either foot.?Foot Pain:?Location:?Bottom, Forefoot, LEFT.?Duration:?several months.?Course:?worse.?Aggravated:?standing, walking, shoes.?Treatments:?rest/alter normal daily activity.? * ROS:?General/Constitutional:?Nausea?denies.?Vomiting?denies.?Hunger Thirst?denies.?Loss appetite?denies.?Chills?denies.?Fatigue?denies.?Fever?denies.?Night Sweats?denies.?Unexplained weight loss?denies.?Unexplained weight gain?denies.?HEENTM:?Dentures?denies.?Dizziness?denies.?Glasses/contacts?denies.?Retinopathy?de nies.?Blurred/double vision?denies.?TMJ?denies.?Discharge/drainage?denies.?Implants?denies.?Sore throat?denies.?Dental implants?denies.?Hard of hearing ?denies.?Difficulty chewing/swallowing/speaking?denies.?Nose bleeds?denies.?Sore mouth?denies.?Respiratory:?On Oxygen?denies.?Pneumonia/pleurisy?denies.?Bronchitis?denies.?Emphysema?denies.?C oughing?denies.?Cough blood?denies.?Shortness of breath?denies.?Wheezing?denies.?Cardiovascular:?Pacemaker?denies.?MVP?denies.?WPW?denies.?CHF?denies.?Heart attack?denies.?Septal defect?denies.?Rapid beat?denies.?Chest pain ?denies.?Atrial Fib.?denies.?Murmur/Palpitations?denies.?Gastrointestinal:?Hemorrhoids?denies.?Stomach/Abdominal pain?denies.?Dark blood stool?denies.?Irritable bowel ?denies.?Constipation?denies.?Diarrhea?denies.?Hematology:?Swelling?denies.?Clots?denies.?Varicose Veins?denies.?Bruising?denies.?Bleeding problem?denies.?Genitourinary:?Blood urine?denies.?Frequent/Painfu/urination/bladder control?denies.?Kidney stones?denies.?Infection (UTI)?denies.?Nephropathy?denies.?sex trans dis (STD)?denies.?Prostate?denies.?Musculoskeletal:?Hammertoes?denies.?Bunions?denies.?Back Pain?denies.?Muscle Cramps/ Resting?denies.?Muscle cramps / walking?denies.?Generalized aches and pains?denies.?Weakness?denies.?Integ.:?Lua?denies.?Scars?denies.?Corns/calluses?denies.?Ingrown nails?denies.?Painful nails?denies.?Open Sores?denies.?Rashes?denies.?Neurologic:?Difficulty sleeping?denies.?Brain disorder?denies.?Numbness?admits.?Balance trouble?denies.?Confusion?denies.?Fainting/blackouts?denies.?Tingling?denies.?Tr emors?denies.? * Medical History:? * Surgical History:?colonoscop y wisdom teeth extraction * Hospitalization/Major Diagno stic Procedure:?Denies Past Hospitalization * Family History:?Mother: dece ased.?Father: , kidney/liver disease.? * Social History:?Tobacco Use:?Tobacco use other than smoking?Are you an other tobacco user??No ?Tobacco Control (Standard)?Tobacco use:?Nonsmoker ?Additional Findings: Tobacco non-user?Current nonsmoker ???Drugs/Alcohol:?Drugs?Have you used drugs other than those for medical reasons in the past 12 months??No ???Miscellaneous:?Caffeine: no. ?Children: no. ?Exercise: yes, walking, exercise at home. ?Marital status: . ?Occupation: self employed. ???Drug/Alcohol:?AUDIT-C (Standard)?Did you have a drink containing alcohol in the past year??No ?Points?0 ?Interpretation?Negative * Medications:?TakingLevothyro xine Sodium Famotidine Medication List reviewed and reconciled with the patientTaking Levothyroxine Sodium Taking Famotidine Medication List reviewed and reconciled with the patient * Allergies:?N.K.D.A.yes[Aller gies Verified] Objective: * Vitals:?Ht: 5ft 9in, Wt:190, BMI:28.06, Shoe size: 9-9.5, BP:110/70mm Hg, Ht-cm: 175.26 cm, Wt-k.18 kg. * Examination: ???General Examination: ?GENERAL APPEARANCE:?Reveals a pleasant, alert, well-nourished, well- developed, well hydrated individual, who demonstrates proper attention to hygiene/body habitus, and is in no acute distress, Pt serves as own?historian for office visit today.?ORIENTED:?person, place, and time.?Neurological: ?SENSORY:?Neurological exam reveals intact sensorium, pain sensation normal, vibration sensation intact, pinprick sensation is normal in the lower extremities, Pt denies, anesthesia, burning, paresthesia, tingling, B/L.?TINEL'S COMPRESSION:? Negative tarsal tunnel, james pedis, and medial calcaneal nerves, Left.?Vascular: ?DP PULSES (B):?3/4, B/L.?PT PULSES (B):?3/4, B/L.?CAPILLARY FILL TIME:?immediate, all digits, B/L.?TROPHIC CONDITION-TEXTURE/ELASTICITY/TURGOR/HAIR GROWTH (B):?normal, B/L.?TEMPERTURE GRADIENT (C):?warm to cool, proximal to distal, B/L.?PIGMENTATION:?normal, B/L.?EDEMA (C):?absent, B/L.?Dermatologic: ?SKIN FINDINGS:?Skin exam reveals Keratotic lesion(s) located at, sub 5th met head LEFT,?Skin shows sign(s) of, erythema, scaling, in a moccasin fashion, no fissure(s) present, B/L.?Orthopedic: ?MUSCLE STRENGTH:?5/5 all groups in a symmetrical fashion , B/L.?MPJ PATHOLOGY:?Mild Pain, plantar MPJ(s), 5th, LEFT, No MPJ pain with ROM, [ - ] Ecchymosis.?FOOTWEAR:?shoe gear properties exacerbate patients foot/toe deformity.?Neuroma Pain: ?PALPATION:?No interspace pain noted on palpation, LEFT.? Assessment: * Assessment: 1.?Pain in left foot - M79.6 72???2.?Tinea pedis of both feet - B35.3 (Primary)???Specify :Acute problem, Uncomplicated (3),Rx drug management (4)???3.?Metatarsalgia, left foot - M77.42??? Plan: * Treatment: * Procedure Codes:? * Preventive Medicine:? ??Counseling:?Discussion:?-03: Office or other outpatient visit for the evaluation and management of a new patient, which required a medically appropriate history and/or examination and LOW level of DECISION MAKING for: 1 STABLE ACUTE UNCOMPLICATED PROBLEM, 2 OR MORE MINOR PROBLEMS, OR 1 STABLE CHRONIC PROBLEM, THAT POSE(S) A LOW RISK FOR MORBIDITY/MORTALITY. The visit on the day of the encounter encompassed interpreting the data and educating the patient as to the nature of their condition, treatment options available according to their individual PMH, meds, allergies, and overall health/living conditions, as well as any potential risks or complications that may occur from a failure to adhere to, and participate in, the recommended course of therapy. The discussion included a complete verbal, and/or written explanation of the examination results, any x-rays taken, the proposed diagnosis, and outline of the treatment plan. A schedule for future care needs was also explained. The patient verbalized an understanding of the instructions at this time and agreed to be an active participant in their treatment. If the patient should think of any questions or concerns after the visit, I have encouraged the patient to call the office.?Metatarsalgea:?I explained to the patient the possible etiologies of their Metatarsalgea Foot pain, including foot type/shoegear/activity level/exercise routine and the risks/benefits of all the different treatment options for pain including: No treatment at all, Rest, Ice, NSAIDs(only if well tolerated after meals), New/supportive Shoe gear, Strappings and Tapings, Foot/Ankle AFO Bracing, Stretching exercises, Deep Tissue Massage, Arch support/shoe inserts, Custom orthoses, Topical analgesics including Aspercream/Voltaren gel, Physical Therapy, Cortisone injection therapy, EPAT/ESWT. Advantages and disadvantages of each option were discussed and the patients questions re: shoe gear, custom vs prefabricated inserts, activity level, PO vs Topical medications (and their respective potential complications/drug interactions/side effects), and consistency in home treatment regimens for optimal success were answered to their verbally confirmed satisfaction.?Shoe Gear Counseling:?The patient and I reviewed the types of shoes they should be wearing. My recommendation included obtaining a well-fitted shoe with a good supportive, non-foldable nor twistable sole, plenty of toe/room for the forefoot, and proper arch support. Based on todays examination, I recommended the patient look for new shoes, by having their feet professionally measured. We discussed that generally the best time of the day for a shoe fitting is the afternoon. Different shoes types and brands to best match the patients occupation and vocation were discussed. Specific brand selection will be up to the patient, their individual foot condition/deformities, and fit. The patient and I reviewed the standard new shoe break in period by wearing them for a few hours a day while checking for redness or sores as wear time is increased. The patient verbally confirmed to understanding the information discussed.?Tinea Pedis:?The patient was counseled on the diagnosis, potential etiologies, and treatment options for their skin condition. We discussed the risks and benefits of each option from performing no treatment, to utilizing OTC topical skin creams, prescription topical creams, customized compounded topical medications, and, if necessary, to utilize oral antifungal therapy. We discussed the advantages and disadvantages of each possible treatment and importance for adherence to all the recommended therapies for optimum success and avoid potential complications such as open sore/infection/possible hospitalization. We discussed the potential effectiveness of each topical preparation as well as each ones possible side effects and/or patient medication interactions if oral therapy is selected. Patient questions re: the advantages and disadvantages of each treatment choice, medication use/dosage, successful outcomes, and application consistency were reviewed and the patient verbalized that all answers were clearly understood. The patient was told they can help alleviate symptoms by utilizing moisture absorbant innersoles with activated charcoal and baking soda, applying antifungal sprays daily, aerating toe web spaces at night by putting cotton or lambs wool between the toes, alternating shoe gear daily if possible so they can dry out, changing socks at least once during the day, wearing well-ventilated shoes or sandals. The patient has decided to apply antifungal skin creams to their feet as directed. Rx was sent to their pharmacy at the time of visit.? ??Screening/Special Tests:?Fall Risk?Screening:?No falls in the past year ?FALLS: Screening for Future Fall Risk?Have you had any falls with injury in the past year??No * Follow Up:?prn * Images: * Sign off status: Completed true * Provider:?Vanessa Hartman DPM Date:? Generated for Rodney culver/Parvin/Toneyitting on:?10/03/2024 11:48 AM EST History and Physical Notes * HPI (History of Present Illness) Category Sub-Category Detail Notes Category Not es Skin problems Nature: scaling , rednes s, flaking black dots to feet Location: B/L Duration: a few months Course: intermittent; no clem ck dots at the moment to either foot Foot Pain Location: Bottom, Forefoot, LEFT Duration: several months Course: worse Aggravated: standing, walking, s hoes Treatments: rest/alter normal da andressa activity Examination Category Sub-Category Detail Notes Category Not es Neuroma Pain PALPATION: No interspace pain noted on palpation, LEFT Neurological SENSORY: Neurological exa m reveals intact sensorium, pain sensation normal, vibration sensation intact, pinprick sensation is normal in the lower extremities, Pt denies, anesthesia, burning, paresthesia, tingling, B/L TINEL'S COMPRESSION: Negative tarsal andi lobo, james pedis, and medial calcaneal nerves, Left Dermatologic SKIN FINDINGS: Skin exam reveal s Keratotic lesion(s) located at, sub 5th met head LEFT, Skin shows sign(s) of, erythema, scaling, in a moccasin fashion, no fissure(s) present, B/L Orthopedic FOOTWEAR: shoe gear proper ties exacerbate patients foot/toe deformity MPJ PATHOLOGY: Mild Pain, plantar M PJ(s), 5th, LEFT, No MPJ pain with ROM, [ - ] Ecchymosis MUSCLE STRENGTH: 5/5 all groups in a symmetrical fashion , B/L General Examination GENERAL APPEARANCE: Reveals a pleasant, alert, well- nourished, well-developed, well hydrated individual, who demonstrates proper attention to hygiene/body habitus, and is in no acute distress, Pt serves as own historian for office visit today ORIENTED: person, place, and t gilberto Vascular DP PULSES (B): 3/4, B/L PT PULSES (B): 3/4, B/L CAPILLARY FILL TIME: immediate, all digi ts, B/L TEMPERTURE GRADIENT (C): warm to cool, p roximal to distal, B/L TROPHIC CONDITION-TEXTURE/ELASTICITY/TURGOR/HAIR GROWTH (B): normal, B/L EDEMA (C): absent, B/L PIGMENTATION: normal, B/L
--- OUTSIDE RECORDS SUMMARY | 2024-10-03 11:48 | XMS_ITS | Patient Health Record ---
Author Organization [facility] Address [address] [place] [address] Care Team Providers Care Travel Nurse Name Role Phone Kostas Boone MD Primary Care Provider Vanessa Easton Unavailable [phone] Allergies No Known Allergies Reason For Referral No Information Medications Medication SIG (Take, Route, Frequency, Duration) [...] No Points 0 Interpretation Negative Vital Signs Blood pressure diastolic 70 mm Hg 09/02/2024 Height 5ft 9in in 09/02/2024 Blood pressure systolic 110 mm Hg 09/02/2024 Weight 190 lbs 09/02/2024 BMI 28.06 kg/m2 09/02/2024 Encounters Encounter Location Date Provider Diagnosis [facility] [address] [place] [address] 09/02/2024 Vanessa Hartman Tinea pedis of both feet B35.3 ; Pain in left foot M79.672 and Metatarsalgia, left foot M77.42 [facility] [address] [place] [address] 02/08/2024 Vanessa Hartman [address] [place] [address] 05/14/2024 Vanessa Hartman [facility] [address] [place] [address] 05/20/2024 Vanessa Hartman Assessments Encounter Date Diagnosis (ICD Code) Assessment Notes Treatment Notes Treatment Clinical Notes Section Notes 09/02/2024 Pain in left foot (ICD-10 - M79.672) 09/02/2024 Tinea pedis of both feet (ICD-10 - B35.3) 09/02/2024 Metatarsalgia, left foot (ICD-10 - M77.42) Plan Of Treatment No Information Insurance Providers Payer Name Payer Address Payer Phone Subscriber Number Group Number Insured Name Patient Relationship to Insured Coverage Start Date Coverage End Date Medicare National [employer] [address] [place] [address] [id number] Kostas Dunn Self - patient is the insured Medical (General) History Medical History History ICD Code Broken bones covid-19 Headaches/Migraines Hepatitis Kidney disease Liver disease Lyme disease thyroid Chicken pox Surgical History Surgery Date(Month/Year) colonoscopy wisdom teeth extraction
--- OUTSIDE RECORDS SUMMARY | 2024-10-03 11:48 | XMS_ITS | Encounter Summary ---
Author Organization [facility] Address [address] [place] [address] Phone Care Team Providers Care Clean Out Driller Helper Name Role Phone Marcell Moya MD Primary Care Provider [phone] Encounter Details Date Type Department Care Team (Late st Contact Info) Description 02/11/2021 Orders Only [facility] [address] [place] [address] Melvin Torres MD [address] [place] [address], [address] [address] Nephrotic syndrome with minor glomerular abnormality Social History Tobacco Use Types Packs/Day Years Used Date Smoking Tobacco: Former Cigarettes Smokeless Tobacco: Never Sex and Gender Information Value Date Recorded Sex Assigned at Not on file Legal Sex Male 9:46 AM EDT Gender Identity Not on file Sexual Orientation Not on file documented as of this encounter Plan of Treatment Not on file documented as of this encounter Visit Diagnoses Diagnosis Nephrotic syndrome with minor glomerular abnormality documented in this encounter Care Teams Clean Out Driller Helper Relationship Specialty Start Date End Date Marcell Moya MD [facility] [place] PCP - General Internal Medicine 12/17/20 documented as of this encounter
--- OUTSIDE RECORDS SUMMARY | 2024-10-03 11:48 | XMS_ITS ---
Author Organization [facility] Address [address] [place] [address] Care Team Providers Care Scrubber Operator Name Role Phone Mahnaz Witt CNP Primary Care Provider Un available Dex Garsia Unavailable [phone] REASON FOR VISIT mcfarland's w/ low grade dysplasia PROBLEMS Problem Type ICD Code Onset Dates Problem Status W/U Status Risk SNOMED Code Notes Problem Gastro-esophagea l reflux disease without esophagitis (K21.9) Active confirmed Gastro-esophage al reflux disease without esophagitis ([id number]) Encounters Encounter Location Date Provider Diagnosis [facility] [address] [place] [phone] 12/26/2023 Dex Garsia 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
--- OUTSIDE RECORDS SUMMARY | 2024-10-03 11:48 | XMS_ITS | Encounter Summary ---
Author Organization [employer] Address [address] [place] [address] Care Team Providers Care Solid Waste Management Engineer Name Role Phone Unavailable Primary Care Provider Unavailabl e Reason for Visit * Reason Onset Date Comments referral cotton picker operator 05/22/2024 Encounter Details Date Type Department Care Team (Late st Contact Info) Description 05/22/2024 Telephone [facility] ADULT DENTAL [address] [place] [address] Mau Freeman DMD [address] [place] [address] referral cotton picker operator Social History Tobacco Use Types Packs/Day Years Used Date Smoking Tobacco: Never Smokeless Tobacco: Never Alcohol Use Standard Drinks/Week Comments Never 0 (1 standard drink = 0.6 oz pur e alcohol) Sex and Gender Information Value Date Recorded Sex Assigned at Male 06/05/2022 10:25 AM EDT Legal Sex Male 10:25 AM EDT Gender Identity Choose not to disclose 10:25 AM EDT Sexual Orientation Choose not to disclose 2021 10:25 AM EDT documented as of this encounter Miscellaneous Notes * Telephone Encounter - Sulma Roth - 05/22/2024 2:41 PM EDT Patient called in because will be coming by to cotton picker operator referral scanned in on 05/20 for [facility]. Contacted [facility] front edger and informed patient would be coming by for cotton picker operator DR documented in this encounter Plan of Treatment Upcoming Encounters Date Type Department Care Team (Late st Contact Info) Description 10/08/2024 3:15 PM EST Office Visit [facility] ADULT DENTAL [address] [place] [address] Vignesh Thompson DMD [address] [place] [address] documented as of this encounter Visit Diagnoses Not on filedocumented in this encounter
--- OUTSIDE RECORDS SUMMARY | 2024-10-03 11:48 | XMS_ITS ---
Author Organization [facility] Address [address] [place] [address] Care Team Providers Care Occupational Therapist Home Based Name Role Phone Mahnaz Witt CNP Primary Care Provider Un available Dex Garsia Unavailable [phone] REASON FOR VISIT Address Steele's/dysplasia Encounters Encounter Location Date Provider Diagnosis [facility] [address] [place] [address] 06/20/2024 Dex Garsia PLAN OF TREATMENT Next Appt Details Provider Name:Dex Garsia , 10/23/2024 11:20:00 AM, [address], [address], [place], [address],
--- OUTSIDE RECORDS SUMMARY | 2024-10-03 11:48 | XMS_ITS | Encounter Summary ---
Author Organization [facility] Address [address] [place] [address] Phone Care Team Providers Care Manager In Training Name Role Phone Marcell Moya MD Primary Care Provider [phone] Encounter Details Date Type Department Care Team (Late st Contact Info) Description 02/18/2021 Orders Only [facility] [address] [place] [address] Melvin Torres MD [address] [place] [address], [address] [address] Nephrotic syndrome with minor glomerular abnormality Social [...] abnormality documented in this encounter Care Teams Manager In Training Relationship Specialty Start Date End Date Marcell Moya MD [facility] [place] PCP - General Internal Medicine 12/17/20 documented as of this encounter
--- OUTSIDE RECORDS SUMMARY | 2024-10-03 11:48 | XMS_ITS ---
Author Organization [facility] Address [address] [place] [address] Care Team Providers Care Plastic Panel Installer Name Role Phone Kostas Boone MD Primary Care Provider Unavaila Vanessa Crooks Unavailable [phone] REASON FOR VISIT ASSISTANT TODDLER TEACHER No Show Encounters Encounter Location Date Provider Diagnosis [facility] [address] [place] [address] 05/20/2024 Vanessa Hartman Plan Of Treatment No Information Progress Notes * Kostas DUNNDOB:1960 (64 yo M)Acc No.[id number]:05/20/2024 Patient:?ShaunKostas :1960???Age:64 Y???Sex:Male Address:[address] [address] * true * Date:? Generated for Marioi abiola/Parvin/eTransmitting on:?10/03/2024 11:48 AM EST
--- OUTSIDE RECORDS SUMMARY | 2024-10-03 11:48 | XMS_ITS ---
Author Organization [facility] Address [address] [place] [address] Care Team Providers Care Metal Burnisher Name Role Phone Mahnaz Witt CNP Primary Care Provider Un available Dex Garsia Unavailable [phone] REASON FOR VISIT Steele's F/U PROBLEMS Problem Type ICD Code Onset Dates Problem Status W/U Status Risk SNOMED Code Notes Problem History of chronic hepatitis (Z87.19) Active confirmed History of gastrointestinal disease (087356619) Encounters Encounter Location Date Provider Diagnosis [facility] [address] [place] [address] 08/18/2024 Dex Garsia Liver fibrosis K74.00 and History of chronic hepatitis Z87.19 ASSESSMENTS Encounter Date Diagnosis Assessment Notes Treatment Notes Treatment Clinical Notes 08/18/2024 Liver fibrosis (ICD-10 - K74.00) 08/18/2024 History of chronic hepatitis (ICD-10 - Z87.19) PLAN OF TREATMENT Pending Test Test Name Order Date LIVER PROFILE 08/18/2024 CBC w DIFF 08/18/2024 ALPHA-FETOPROTEIN,TUMOR MARKER 5 HCV LIVER FIBROSIS, FIBRO TEST 5 Prothrombin Time INR 08/18/2024 US abdomen comp w elastography 5 Next Appt Details Provider Name:Dex Garsia , 10/23/2024 11:20:00 AM, [address], [address], [place], [address],
--- OUTSIDE RECORDS SUMMARY | 2024-10-03 11:48 | XMS_ITS | Clinical Summary ---
Author Organization [employer] Address [address] [place] [address] Care Team Providers Care Cordwainer Name Role Phone Unavailable Primary Care Provider Unavailabl e Allergies No known active allergies Medications levocetirizine (Xyzal) 5 MG tablet Take by mouth in the evening. Active famotidine (Pepcid) 10 MG tablet Take by mouth. Activ e levothyroxine (Synthroid, Levoxyl) 75 MCG tablet 1 TABLET BY MOUTH DAILY,INSTR:PT OUT OF MEDICATION, REQUESTED LIMITED SUPPLY. 4 Active chlorhexidine (Peridex) 0.12 % solution TAKE 15 ML BY MOUTH OR THROAT IF NEEDED IN THE MORNING, AT NOON, AND AT BEDTIME (PROPHYLAXIS) FOR UP TO 5 DAYS. DO NOT SWALLOW. 473 mL 4 Active albuterol 108 (90 Base) MCG/ACT inhaler INHALE 2 PUFFS BY MOUTH EVERY 6 HOURS NEEDED FOR WHEEZING/SHORT NESS OF BREATH 1 Active Active Problems Problem Noted Date Diagnosed Date Gastro-esophageal reflux disease without esophag itis 07/25/2024 Family history of celiac disease 05/16/2024 Hepatic fibrosis 05/16/2024 History of hepatitis C virus infection Hypogonadism male 05/16/2024 Chronic constipation 05/16/2024 Irritable bowel syndrome 05/16/2024 Low testosterone 05/16/2024 Osteopenia 05/16/2024 Esophagitis, reflux 05/16/2024 Cluster headache 05/16/2024 Bronchospasm 05/16/2024 Steele's esophagus with low grade dysplasia 06/2024 Abdominal bloating 05/16/2024 Cough 04/30/2024 FSGS (focal segmental glomerulosclerosis) 2023 Intravenous drug user 01/04/2024 Long-term current use of methadone for opiate de pendence 01/04/2024 Medicare annual wellness visit, subsequent 01/03 Stage 3 chronic kidney disease 01/04/2024 Steele esophagus 01/04/2024 Gingival recession, generalized 10/17/2023 Dental plaque 10/17/2023 Periodontal disease 05/09/2023 Dental caries 05/09/2023 Disease due to severe acute respiratory syndrome coronavirus 2 (SARS-CoV-2) 12/16/2021 Overview (05/16/2024): Problem added by Discern Expert Nephrotic syndrome with foca l and segmental glomerular lesions 07/12/2021 Dry skin 03/18/2021 BPPV (benign paroxysmal positional vertigo) 03/06 Essential hypertension 12/22/2020 Hypothyroidism 12/22/2020 Migraine 12/22/2020 Encounters Date Type Department Care Team Description 07/25/2024 3:30 PM EST Office Visit [facility] [address] [place] [address] Mau Freeman DMD from Last 3 Months Social History Tobacco Use Types Packs/Day Years Used Date Smoking Tobacco: Never Smokeless Tobacco: Never Tobacco Cessation:Counseling Given: Not Answered Alcohol Use Standard Drinks/Week Comments Never 0 (1 standard drink = 0.6 oz pur e alcohol) Sex and Gender Information Value Date Recorded Sex Assigned at Male 06/05/2022 10:25 AM EDT Legal Sex Male 10:25 AM EDT Gender Identity Choose not to disclose 10:25 AM EDT Sexual Orientation Choose not to disclose 2021 10:25 AM EDT Last Filed Vital Signs Vital Sign Reading Time Taken Comments Blood Pressure 114/78 05/16/2024 2:34 PM EDT Pulse 74 10/17/2023 9:58 AM EDT Temperature - - Respiratory Rate - - Oxygen Saturation - - Inhaled Oxygen Concentration - - Weight - - Height - - Body Mass Index - - Plan of Treatment Upcoming Encounters Date Type Department Care Team (Late st Contact Info) Description 10/08/2024 3:15 PM EST Office Visit [facility] ADULT D[facility] [address] [place], [place] [phone] Vignesh Thompson DMD [address] [place], [place] [phone] Health Maintenance Due Date Last Done Comments CT Colonography 1960 Colonoscopy 1960 Colorectal Cancer Screening 1960 Depression Screening 1960 FIT DNA/Cologuard 1960 FIT 1960 FOBT 1960 HIV Screening 1960 Lipid Panel 1960 SDOH Screening 1960 Sigmoidoscopy 1960 Alcohol/Substance Use Screening 1972 DTaP/Tdap/Td Vaccines (1 - Tdap) 01/12/1979 Hepatitis A Vaccines (1 of 2 - Risk 2-dose series) 01/12/1979 Pneumococcal Vaccine: 50+ Years (1 of 2 - PCV) 01/12/1979 Zoster Vaccines (1 of 2) 01/12/2010 Hepatitis B Vaccines (1 of 3 - Risk 3-dose series) 2020 RSV Patients and Patients Aged 60 years or older (1 - Risk 60-74 years 1-dose series) 2020 COVID-19 Vaccine (2 - 2023- season) 2024 07/11/2021 Influenza Vaccine (#1) 2024 Dental Prophylaxis 04/19/2024 10/17/2023, 1 , 08/28/2017, Additional history exists Dental Oral Exam 09/18/2024 03/17/2024, , 08/18/2019, Additional history exists Dental X-Ray: Bitewings 03/18/2025 03/17/20 24, 04/05/2023, 03/06/2022, Additional history exists Tobacco Screening 07/25/2025 07/25/2024 Dental X-Ray: Full Mouth 04/06/2026 04/05/2023, 04/0 09/2018 HIB Vaccines Aged Out No longer eligi ble based on patient's age to complete this topic HPV Vaccines Aged Out No longer eligi ble based on patient's age to complete this topic IPV Vaccines Aged Out No longer eligi ble based on patient's age to complete this topic Meningococcal Vaccine Aged Out No eneida alexandre eligible based on patient's age to complete this topic RSV under 20 months Aged Out No longe r eligible based on patient's age to complete this topic Rotavirus Vaccines Aged Out No longer eligible based on patient's age to complete this topic Procedures Procedure Name Priority Date/Time Associated Diagnosis Comments CASE PRESENTATION, DETAILED AND EXTENSIVE TREATMENT PLANNING Routine 07/25/2024 3:30 PM EST LIMITED ORAL EVALUATION - PROBLEM FOCUSED Routine 07/25/2024 3:30 PM EST BITEWINGS - 4 RADIOGRAPHIC IMAGES Routine 03/17/2024 2:30 PM EDT PERIODIC ORAL EVALUATION - ESTABLISHED PATIENT Routine 03/17/2024 2:30 PM EDT PROPHYLAXIS - ADULT Routine 10/17/2023 1 0:00 AM EDT Dental plaque INTRAORAL - COMPLETE SERIES OF RADIOGRAPHIC IMAGES Routine 04/05/2023 10:00 AM EDT from Last 3 Months or Most Recently Relevant to Health Maintenance Insurance [facility] [place] STAND ADULT
--- OUTSIDE RECORDS SUMMARY | 2024-10-03 11:48 | XMS_ITS | Clinical Summary ---
Author Organization [facility] Address [address] [place] [address] Phone Care Team Providers Care Saxophone Teacher Name Role Phone Marcell Moya MD Primary Care Provider [phone] Allergies No known active allergies Medications SUMAtriptan (IMITREX) 100 MG tablet TAKE 1 TABLET BY MOUTH NEEDED, MAY REPEAT IN 4 HOURS. MAX 2 PER 24 HOURS 10/25/2020 Active methadone (DOLOPHINE) 10 MG/ML solution Take 79 mg by mouth daily Active famotidine (PEPCID) 40 MG tablet 12/23/2020 Active levothyroxine (SYNTHROID, LEVOTHROID) 75 MCG tablet 12/23/2020 Active fluticasone (FLONASE) 50 MCG/ACT nasal spray USE 1 SPRAY IN EACH NOSTRIL TWICE A DAY 03/01/2021 Active albuterol HFA (PROVENTIL HFA;VENTOLIN HFA) 108 (90 Base) MCG/ACT inhaler INHALE 2 PUFFS BY MOUTH EVERY 6 HOURS NEEDED FOR WHEEZING/SHOR TNESS OF BREATH 03/01/2021 Active lisinopril 5 MG tablet Take 2.5 mg by mouth 1 (one) time each day 06/17/2021 Active Lokelma 10 g pack USE 1 PACKET DIRECTED EVERY Sunday AND Sunday07/03/2021 Active traZODone (DESYREL) 50 MG tablet 07/07/2021 Active Active Problems Problem Noted Date Diagnosed Date Nephrotic syndrome with foca l and segmental glomerular lesions 07/12/2021 Intravenous drug user 07/12/2021 Essential (primary) hypertension 12/22/2020 Migraine 12/22/2020 Hypothyroidism 12/22/2020 Family History Medical History Relation Comments Heart disease Father Relation Status Comments Father Mother Social History Tobacco Use Types Packs/Day Years Used Date Smoking Tobacco: Former Cigarettes Smokeless Tobacco: Never Sex and Gender Information Value Date Recorded Sex Assigned at Not on file Legal Sex Male 9:46 AM EDT Gender Identity Not on file Sexual Orientation Not on file Last Filed Vital Signs Vital Sign Reading Time Taken Comments Blood Pressure 108/66 07/12/2021 2:15 PM EST Pulse 68 07/12/2021 2:15 PM EST Temperature - - Respiratory Rate - - Oxygen Saturation 98% 07/12/2021 2:15 PM EST Inhaled Oxygen Concentration - - Weight 83.7 kg (184 lb 9.6 oz) 07/12/2021 2:15 P M EST Height 175.3 cm (5' 9 ) 07/12/2021 2:15 PM EST Body Mass Index 27.26 07/12/2021 2:15 PM EST Plan of Treatment Health Maintenance Due Date Last Done Comments Pneumococcal Vaccine: Pediat rics (0 to 5 Years) and At-Risk Patients (6 to 64 Years) (1 of 2 - PCV) 01/12/1966 Colorectal Cancer Screening: Annual FOBT 01/12/2009 Colorectal Cancer Screening: Colonoscopy 01/12/2009 Colorectal Cancer Screening: Sigmoidoscopy 01/12/2009 Influenza Vaccine (#1) 2024 Hepatitis B Vaccine Aged Out No longe r eligible based on patient's age to complete this topic Insurance [place] Care Teams Saxophone Teacher Relationship Specialty Start Date End Date Marcell Moya MD [facility] [place] PCP - General Internal Medicine 12/17/20
--- OUTSIDE RECORDS SUMMARY | 2024-10-03 11:49 | XMS_ITS ---
Author Organization [facility] Address [address] [place] [address] Care Team Providers Care Percussion Instructor Name Role Phone Kostas Boone MD Primary Care Provider Vanessa Easton Unavailable [phone] Medications Medication SIG (Take, Route, Fr equency, [...] 05/20/2024 Encounters Encounter Location Date Provider Diagnosis [facility] [address] [place] [address] 05/20/2024 Vanessa Hartman Plan Of Treatment No Information Progress Notes * SHAUNKostasDOB:1960 (64 yo M)Acc No.[id number]:05/20/2024 Progress Notes Patient:?Kostas DUNN Provider:?Vanessa Hartman DPM :1960???Age:64 Y???Sex:Male Duane e:05/20/2024 Address:[address], [place] Pcp:Kostas Boone MD Subjective: * Chief Complaints: * ??? * ROS:?General/Constitutional:?Nausea?denies.?Vomiting?denies.?Hunger Thirst?denies.?Loss appetite?denies.?Chills?denies.?Fatigue?denies.?Fever?denies.?Night Sweats?denies.?Unexplained weight loss?denies.?Unexplained weight gain?denies.?HEENTM:?Dentures?denies.?Dizziness?denies.?Glasses/contacts?denies.?Retinopathy?de nies.?Blurred/double vision?denies.?TMJ?denies.?Discharge/drainage?denies.?Implants?denies.?Sore throat?denies.?Dental implants?admits.?Hard of hearing ?denies.?Difficulty chewing/swallowing/speaking?denies.?Nose bleeds?denies.?Sore mouth?denies.?Respiratory:?On Oxygen?denies.?Pneumonia/pleurisy?denies.?Bronchitis?denies.?Emphysema?denies.?C oughing?denies.?Cough blood?denies.?Shortness of breath?denies.?Wheezing?denies.?Cardiovascular:?Pacemaker?denies.?MVP?denies.?WPW?denies.?CHF?denies.?Heart attack?denies.?Septal defect?denies.?Rapid beat?denies.?Chest pain ?denies.?Atrial Fib.?denies.?Murmur/Palpitations?denies.?Gastrointestinal:?Hemorrhoids?admits.?Stomach/Abdominal pain?admits.?Dark blood stool?denies.?Irritable bowel ?admits.?Constipation?admits.?Diarrhea?denies.?Hematology:?Swelling?denies.?Clots?denies.?Varicose Veins?denies.?Bruising?denies.?Bleeding problem?denies.?Genitourinary:?Blood urine?denies.?Frequent/Painfu/urination/bladder control?denies.?Kidney stones?denies.?Infection (UTI)?denies.?Nephropathy?denies.?sex trans dis (STD)?denies.?Prostate?denies.?Musculoskeletal:?Hammertoes?denies.?Bunions?denies.?Back Pain?denies.?Muscle Cramps/ Resting?denies.?Muscle cramps / walking?denies.?Generalized aches and pains?denies.?Weakness?denies.?Integ.:?Lua?denies.?Scars?denies.?Corns/calluses?admits.?Ingrown nails?denies.?Painful nails?denies.?Open Sores?denies.?Rashes?admits.?Neurologic:?Difficulty sleeping?denies.?Brain disorder?denies.?Numbness?admits.?Balance trouble?denies.?Confusion?denies.?Fainting/blackouts?denies.?Tingling?denies.?Tr emors?denies.? * Medical History:?Broken bone s, Covid-19, Headaches/Migraines, Hepatitis, Kidney disease, Liver disease, Lyme disease, Thyroid, Chicken pox. * Family History:?Mother: dece ased.?Father: , kidney/liver disease.? * Social History:?Tobacco Use:?Tobacco Use/Smoking?Are you a:?former smoker ?Additional Findings: Tobacco Non-User?Current non-smoker ?Tobacco use other than smoking?Are you an other tobacco user??No ???Drugs/Alcohol:?Drugs?Have you used drugs other than those for medical reasons in the past 12 months??No ?Alcohol Screen?Did you have a drink containing alcohol in the past year??No ?Points?0 ?Interpretation?Negative ???Miscellaneous:?Caffeine: no. ?Children: no. ?Exercise: yes, walking, exercise at home. ?Marital status: . ?Occupation: self employed. * Medications:?Taking Levothyr oxine Sodium , Taking Famotidine Objective: * Vitals:?Ht: 5 ft 9 in, Wt:19 0, BMI:28.06, Shoe size: 9.5, Ht-cm: 175.26 cm, Wt- k.18 kg. Assessment: Plan: * Treatment: * Images: * The named appointment provid er may or may not be the originator of this progress note, and it is not deemed complete until electronically signed by the appointment provider. Sign off status: Pending * Provider:?Vanessa Hartman DPM Date:? Generated for Rodney culver/Parvin/Toneyitting on:?10/03/2024 11:49 AM EST
--- OUTSIDE RECORDS SUMMARY | 2024-10-03 11:49 | XMS_ITS | Patient Health Record ---
Author Organization [facility] Address [address] [place] [address] Care Team Providers Care Ferruler Name Role Phone Witt MARTINEZ Mahnaz Jaci Primary Care Provider Un available Dex Garsia Unavailable [phone] ALLERGIES No Known Allergies RESULTS Component Value Reference Range Notes Pathology (Not yet reviewed by provider) Interpretation: Performing Lab:[facility], [address] [place] [id number] Notes/Report: REASON FOR REFERRAL No Information MEDICATIONS Medication SIG (Take, Route, Frequency, Duration) Notes Start Date End Date Status Vitamin D 2000 UNIT 2 tablet Orally Once a day Active CoQ10 50 MG 1 capsule with a beba l Orally Once a day Active Methadone HCl 64 mg 1 ml mixed with wate r as needed Orally Once a day Active Famotidine 40 MG TAKE 1 TABLET BY HAI TH TWICE A DAY for 90 Active Vitamin P64-Qaiir Acid 500-400 MCG 1 Orally QD Active Levothyroxine Sodium 125 MCG 1 capsule O rally Once a day Active IMMUNIZATIONS Vaccine Route Administration Date Status Comme nts Influenza Unknown 04/17/2019 Refused Influenza Unknown 07/20/2022 Refused SOCIAL HISTORY Sex Assigned At : Social History Observation Description Sex Assigned At Unknown PROBLEMS Problem Type ICD Code Onset Dates Problem Status W/U Status Risk SNOMED Code Notes Problem Esophageal reflux (K21.9) Active confirmed Esophageal refl ux (286635111) Problem Gastro-esophageal reflux disease without esophagitis (K21.9) Active confirmed Gastro-esophage al reflux disease without esophagitis (493855055) Problem Abdominal bloating (R14.0) Active confirmed 306444145 Problem Tseele's esophagus without dysplasia (K22.70) Active confirmed 023273539 Problem 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) Active confirmed 6029230649696495 Problem Gastroesophageal reflux disease without esophagitis (K21.9) Active confirmed 004049848 Problem Chronic hepatitis C without hepatic coma (B18.2) Active confirmed 060506113 Problem History of colon polyps (Z86.010) Active confirmed History of polyp of colon (627706220) Problem Screening for colon cancer (Z12.11) Active confirmed 993316575 Problem Constipation, unspecified constipation type (K59.00) Active confirmed 95884400 Problem Hx of adenomatous colonic polyps (Z86.010) Active confirmed 022404975 Problem Abdominal pain, right upper quadrant (R10.11) Active confirmed 696731956 Problem Steele esophagus (K22.70) Active confirmed Steele esophag us (974364921) Problem History of hepatitis C (Z86.19) Active confirmed 62080573100181 Problem Diarrhea, unspecified type (R19.7) Active confirmed 05701139 Problem History of chronic hepatitis (Z87.19) Active confirmed History o f gastrointestinal disease (284629295) Problem Irritable bowel syndrome with both constipation and diarrhea (K58.2) Active confirmed 42608647 Problem Diverticulosis of colon (K57.30) Active confirmed Diverticulosi s of colon (641923556) Problem Family history of celiac disease (Z83.79) Active confirmed 100698091 Problem Steele''s esophagus without dysplasia (K22.70) Active confirmed 976428573 Problem Liver fibrosis (K74.00) Active confirmed 00930817 Encounters Encounter Location Date Provider Diagnosis [facility] Outpatient [address] [place] [phone] 12/26/2023 Dex Garsia Steele esophagus K22.70 ; Gastro-esophageal reflux disease without esophagitis K21.9 and Hiatal hernia K44.9 [facility] [address] [place] [phone] 06/20/2024 Dex Garsia [facility] [address] [place] [phone] 08/18/2024 Dex Garsia Liver fibrosis K74.0 0 and History of chronic hepatitis Z87.19 ASSESSMENTS Encounter Date Diagnosis Assessment Notes Treatment Notes Treatment Clinical Notes 12/26/2023 Gastro-esophageal reflux disease without esophagitis (ICD-10 - K21.9) 12/26/2023 Steele esophagus (ICD-10 - K22.70) 08/18/2024 History of chronic hepatitis (ICD-10 - Z87.19) 08/18/2024 Liver fibrosis (ICD-10 - K74.00) 12/26/2023 Hiatal hernia (ICD-10 - K44.9) PLAN OF TREATMENT Pending Test Test Name Order Date LIVER PROFILE 12/01/2021 LIVER PROFILE 09/06/2023 LIVER PROFILE 11/12/2012 LIVER PROFILE 12/16/2014 LIVER PROFILE 10/13/2014 LIVER PROFILE 04/29/2015 LIVER PROFILE 08/21/2014 LIVER PROFILE 09/24/2014 LIVER PROFILE 10/12/2017 LIVER PROFILE 08/18/2024 LIVER PROFILE 04/17/2019 LIVER PROFILE 07/20/2022 AMYLASE 10/12/2017 LIPASE 10/12/2017 T4 (THYROXINE) 12/01/2014 TSH (THYROID STIMULATING HORMONE) 2014 CBC w DIFF 08/18/2024 CBC w DIFF 04/17/2019 CBC w DIFF 07/20/2022 CBC w DIFF 09/06/2023 CBC w DIFF 10/12/2017 CBC w DIFF 11/12/2012 CBC w DIFF 12/16/2014 CBC w DIFF 10/13/2014 CBC w DIFF 04/29/2015 CBC w DIFF 08/21/2014 CBC w DIFF 09/24/2014 PROTHROMBIN TIME (PT, INR) 04/17/2019 PROTHROMBIN TIME (PT, INR) 07/20/2022 CLOSTRIDIUM DIFF TOXIN A&B (C DIFF) 11/04 ALPHA-FETOPROTEIN,TUMOR MARKER 2 ALPHA-FETOPROTEIN,TUMOR MARKER 5 ALPHA-FETOPROTEIN,TUMOR MARKER 4 ALPHA-FETOPROTEIN,TUMOR MARKER 9 ALPHA-FETOPROTEIN,TUMOR MARKER 2 ALPHA-FETOPROTEIN,TUMOR MARKER 8 ALPHA-FETOPROTEIN,TUMOR MARKER 3 ALPHA-FETOPROTEIN,TUMOR MARKER 5 CELIAC PANEL #10 09/06/2023 HEPATITIS C VIRAL LOAD 09/24/2014 HEPATITIS C VIRAL LOAD 12/01/2021 HEPATITIS C VIRAL LOAD 12/16/2014 HEPATITIS C VIRAL LOAD 04/17/2019 HEPATITIS C VIRAL LOAD 10/13/2014 HEPATITIS C VIRAL LOAD 04/29/2015 HEPATITIS C VIRAL LOAD 10/12/2017 HEPATITIS C VIRAL LOAD 09/06/2023 HEPATITIS C VIRAL LOAD 08/21/2014 GIARDIA AG, STOOL EIA 11/13/2017 OVA & PARASITES (O&P) 11/13/2017 CULTURE, STOOL 11/13/2017 US ABD 04/17/2019 US ABD 07/20/2022 FIBROSPECT SM II 08/21/2014 HCV LIVER FIBROSIS, FIBRO TEST 5 HCV LIVER FIBROSIS, FIBRO TEST 2 STOOL WBC 11/13/2017 US ABDOMEN COMP WITH ELASTOGRAPHY 2021 Prothrombin Time INR 09/06/2023 Prothrombin Time INR 08/18/2024 Liver Fibrosis Pnl 09/06/2023 Liver Fibrosis Pnl 07/20/2022 Pathology 12/26/2023 US abdomen comp w elastography 5 Future Test Test Name Order Date COLONOSCOPY 06/24/2013 UPPER GI ENDOSCOPY 12/21/2022 COLONOSCOPY 12/21/2022 UPPER GI ENDOSCOPY 09/06/2023 US abdomen comp w elastography 4 Next Appt Details Provider Name:Dex Garsia , 10/23/2024 11:20:00 AM, [address] [facility] [facility] [address], [address], [place], [address], Insurance Providers Payer Name Payer Address Payer Phone Subscriber Number Group Number Insured Name Patient Relationship to Insured Coverage Start Date Coverage End Date MEDICARE OF [place] [address] [place] [address] [id number] DANUTA ZACK Self - patient is the insured MEDICAID OF [facility] [address] [place] [address] [id number] DANUTAZACK Self - patient is the insured MEDICAL (GENERAL) HISTORY Medical History History ICD Code Laser prostate surgery in 09/2011 Colonoscopy with a tubular a denoma removed in 01/2014--also noted was some sigmoid diverticulosis and internal hemorrhoids--he had similar findings on a colonoscopy in January of 2009. Chronic Hep C-Genotype 1-Rx' d in 1999, without success; liver biopsy in 05/13 with Gr 1/4 hepatitis and Stage 0-1/4 fibrosis--no significant change as compared to a liver biopsy in 1996--- hepatitis C viral load was greater than 6 million in September of 2014--a liver ultrasound and alpha-fetoprotein level were unremarkable at that time as well. 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 Marcelo in 06/2018 at [facility]--had an EGD with GERD(no esophagitis) and small area of Steele's esopghagus-biopsies negative for dysplasia, and a negative colonoscopy in 06/2018 Nephrotic syndrome - being s een by [facility] Gravity Prospecting Operator Dr. Ann---s/p renal biopsy in 06/2021 at [facility] with a complication of a hematoma--hospitalized at [facility] Negative screening colonoscopy in March of 2023 Upper endoscopy in March of 2023 revealed his small area of Steele's esophagus and small hiatal hernia. There was no esophagitis. Biopsies from the Steele's mucosa revealed changes of indefinite low-grade dysplasia . Surgical History Surgery Date(Month/Year)
== END 2024-10-03 10:28 | disposition home or self-care (01) ==
LOC: HO.US 10:27
PROVIDERS: PCP Nurse Practitioner Family; Visit Provider Internal Medicine
DX: Z13.89 Encounter for screening for other disorder (principal)
CPT/HCPCS: 76700; 76981

== ENCOUNTER → 2024-10-03 10:29 | Outpatient (BNV) | payer MEDICARE, MEDICAID, SELFPAY | PROVIDERS: PCP Nurse Practitioner Family; Visit Provider Radiology Diagnostic Radiology | DX: K74.00 Hepatic fibrosis, unspecified (principal) | CPT/HCPCS: 76700; 76981 ==

== ENCOUNTER 2024-10-03 11:31 | Outpatient (REF) | payer MEDICARE, MEDICAID, SELFPAY ==
[2024-10-03 13:11] LABS: MANUAL DIFF FLAG NO
[2024-10-03 13:13] LABS: Basophils Percent Auto 0.7 % (0-2); Eosinophils Absolute Auto 0.2 X10*3/uL (0.0-0.4); Hematocrit 43.6 % (42.0-52.0); Hemoglobin 14.4 g/dl (14.0-18.0); Imm Gran Abs Auto 0.01 X10*3/uL (0.00-0.03); Imm Gran Pct Auto 0.2 % (0.0-0.4); Lymphocytes Absolute Auto 1.3 X10*3/uL (1.2-4.9); Lymphocytes Percent Auto 29.1 % (20-40); Mean Corpuscular Hemoglobin 29.9 pg (27.0-33.0); Mean Corpuscular Volume 90.5 fL (80.0-98.0); Monocytes Absolute Auto 0.4 X10*3/uL (0.1-1.2); Monocytes Percent Auto 8.6 % (2-11); Neutrophils Absolute Auto 2.5 x10*3/uL (2.0-8.3); Neutrophils Percent Auto 56.4 % (45-73); Platelet Count 190 X10*3/uL (160-400); Red Blood Count 4.82 X10*6/uL (4.60-5.80); Red Cell Distribution Width 12.3 % (11.0-16.0); White Blood Count 4.4 X10*3/uL (4.8-10.8)
[2024-10-03 13:19] LABS: Prothrombin Time 11.7 SEC (10.9-12.4)
[2024-10-03 13:32] LABS: Alanine Aminotransferase 17 U/L (0-40); Albumin Level 4.3 g/dL (3.5-5.0); Alkaline Phosphatase 81 U/L (39-117); Aspartate Amino Transferase 30 U/L (5-37); Bilirubin Direct 0.3 mg/dL (0.0-0.5); Bilirubin Total 0.8 mg/dL (0.0-1.0); Total Protein 7.8 g/dL (6.5-8.0)
--- OUTSIDE RECORDS SUMMARY | 2024-10-03 13:47 | XMS_ITS | Encounter Summary ---
Author Organization [employer] Address [address] [place] [address] Care Team Providers Care Granite Chip Terrazzo Finisher Name Role Phone Unavailable Primary Care Provider Unavailabl e Reason for Visit * Reason Onset Date Comments referral cotton picker 05/22/2024 Encounter Details Date Type Department Care Team (Late st Contact Info) Description 05/22/2024 Telephone [facility] ADULT DENTAL [address] [place] [address] Mau Freeman DMD [address] [place] [address] referral cotton picker Social History Tobacco Use Types Packs/Day Years [...] will be coming by to cotton picker referral scanned in on 05/20 for [facility]. Contacted [facility] motel front desk attendant and informed patient would be coming by for cotton picker DR documented in this encounter Plan of Treatment Upcoming Encounters Date Type Department Care Team (Late st Contact Info) Description 10/08/2024 3:15 PM EST Office Visit [facility] [address] [place] [address] Vignesh Thompson DMD [address] [place] [address] documented as of this encounter Visit Diagnoses Not on filedocumented in this encounter
--- OUTSIDE RECORDS SUMMARY | 2024-10-03 13:47 | XMS_ITS | Encounter Summary ---
Author Organization [facility] Address [address] [place] [address] Phone Care Team Providers Care Materials Engineering Technician Name Role Phone Marcell Moya MD Primary Care Provider [phone] Encounter Details Date Type Department Care Team (Late st Contact Info) Description 02/18/2021 Orders Only [facility] [address] [place] [address] Melvin Torres MD [address] [place] [address], [address] [address] Nephrotic syndrome with minor glomerular abnormality Social [...] abnormality documented in this encounter Care Teams Materials Engineering Technician Relationship Specialty Start Date End Date Marcell Moya MD [facility] [place] PCP - General Internal Medicine 12/17/20 documented as of this encounter
--- OUTSIDE RECORDS SUMMARY | 2024-10-03 13:47 | XMS_ITS | Clinical Summary ---
Author Organization [facility] Address [address] [place] [address] Phone Care Team Providers Care Rn Iv Therapy Name Role Phone Marcell Moya MD Primary Care Provider [phone] Allergies No known active allergies Medications SUMAtriptan [...] [place] Care Teams Rn Iv Therapy Relationship Specialty Start Date End Date Marcell Moya MD [facility] [place] PCP - General Internal Medicine 12/17/20
--- OUTSIDE RECORDS SUMMARY | 2024-10-03 13:47 | XMS_ITS | Clinical Summary ---
Author Organization [employer] Address [address] [facility] 7t [place] [address] Care Team Providers Care Miner Pick Name Role Phone Unavailable Primary Care Provider [...] Description 07/25/2024 3:30 PM EST Office Visit [facility] ADULT [facility]AL [address] [place] [address] Mau Freeman DMD from Last [...] Description 10/08/2024 3:15 PM EST Office Visit [facility] ADULT DENTAL [address] [place], [place] [phone] Vignesh Thompson DMD [address] [place], [place] [phone] Health Maintenance Due Date Last Done Comments [...]
--- OUTSIDE RECORDS SUMMARY | 2024-10-03 13:47 | XMS_ITS | Encounter Summary ---
Author Organization [facility] Address [address] [place] [address] Phone Care Team Providers Care Family Psychologist Name Role Phone Marcell Moya MD Primary Care Provider [phone] Encounter Details Date Type Department Care Team (Late st Contact Info) Description 02/04/2021 Orders Only [facility] [address] [place] [address] Melvin Torres MD [address] [place] [address], [address] [address] Nephrotic syndrome with minor glomerular abnormality Social [...] abnormality documented in this encounter Care Teams Family Psychologist Relationship Specialty Start Date End Date Marcell Moya MD [address] [place] [place] PCP - General Internal Medicine 12/17/20 documented as of this encounter
--- OUTSIDE RECORDS SUMMARY | 2024-10-03 13:47 | XMS_ITS | Encounter Summary ---
Author Organization [employer] Address [address] [facility] 7[address] [place] [address] Care Team Providers Care Flatwork Feeder Name Role Phone Unavailable Primary Care Provider Unavailabl e Encounter Details Date Type Department Care Team (Latest Contact Info) Description 06/02/2019 Abstract [facility] CONVERSIONS Dental, Provider, DDS Social [...] Description 10/08/2024 3:15 PM EST Office Visit [facility] ADULT DENTAL [address] [place] [address] Vignesh Thompson, SKINNY [address] [place] [address] documented as of this encounter Visit Diagnoses Not on filedocumented in this encounter
--- OUTSIDE RECORDS SUMMARY | 2024-10-03 13:47 | XMS_ITS | Encounter Summary ---
Author Organization [facility] Address [address] [place] [address] Phone Care Team Providers Care Police Superintendent Name Role Phone Marcell Moya MD Primary Care Provider [phone] Encounter Details Date Type Department Care Team (Late st Contact Info) Description 02/11/2021 Orders Only [facility] [address] [place] [address] Melvin Torres MD [address] [place] [address], [address] [address] Nephrotic syndrome with minor glomerular abnormality Social [...] abnormality documented in this encounter Care Teams Police Superintendent Relationship Specialty Start Date End Date Marcell Moya MD [facility] [place] PCP - General Internal Medicine 12/17/20 documented as of this encounter
[2024-10-06 12:53] LABS: Alpha Fetoprotein 0.9 ng/mL (<6.1)
[2024-10-09 09:54] LABS: FIB-ALT 15 U/L (9-46); FIB-Alpha-2-Macroglobulin 430 mg/dL (106-279); FIB-Apolipoprotein A1 205 mg/dL (94-176); FIB-GGT 12 U/L (3-70); FIB-Haptoglobin 114 mg/dL (43-212); FIB-Total Bilirubin 0.6 mg/dL (0.2-1.2); Liver Fibrosis Score 0.44; Liver Fibrosis Stage F1-F2; Nec Inflam Act Grade A0; Nec Inflam Act Score 0.06; Reference ID 5368685
== END 2024-10-03 11:32 | disposition home or self-care (01) ==
LOC: HO.10HDL 11:31
PROVIDERS: Visit Provider Internal Medicine
DX: K74.00 Hepatic fibrosis, unspecified (principal); Z87.19 Personal history of other diseases of the digestive system
CPT/HCPCS: 36415; 76700; 76981; 80076; 81596; 82105; 85025; 85610

== ENCOUNTER 2025-01-19 10:17 | Day surgery (SDC) | payer MEDICARE, MEDICAID, SELFPAY ==
[2025-01-15 12:40] VITALS: BMI 26.4
[2025-01-19 10:36] VITALS: BMI 26.4
[2025-01-19 10:41] VITALS: BP 141/121; PULSE 60; RESP 16; TEMP 36.3; O2SAT 96
[2025-01-19] MEDS: Lactated Ringers 1,000 ML 80 ML IVCONT (11:03)
--- OUTSIDE RECORDS SUMMARY | 2025-01-19 11:24 | XMS_ITS ---
Author Organization [facility] Address [address] [place] [address] Care Team Providers Care Extractor Operator Helper Name Role Phone Mahnaz Witt CNP Primary Care Provider Un available Garsia Dex Unavailable [phone] REASON FOR VISIT Steele's F/U Problems Problem Type SNOMED Code ICD Code Onset Dates Problem Status W/U Status Risk Notes Problem History of chronic hepatitis (Z87.19) Active confirmed Encounters Encounter Location Date Provider Diagnosis [facility] [address] [place] [phone] 08/18/2024 Dex Garsia Liver fibrosis K74.00 and History of chronic hepatitis Z87.19 Assessments Encounter Date Diagnosis (ICD Code) Assessment Notes Treatment Notes Treatment Clinical Notes Section Notes 08/18/2024 Liver fibrosis (ICD-10 - K74.00) 08/18/2024 History of chronic hepatitis (ICD-10 - Z87.19) Plan Of Treatment Pending Test Test Name Order Date LIVER PROFILE 08/18/2024 CBC w DIFF 08/18/2024 ALPHA-FETOPROTEIN,TUMOR MARKER 5 HCV LIVER FIBROSIS, FIBRO TEST 5 Prothrombin Time INR 08/18/2024 US abdomen comp w elastography 5 Next Appt Details Provider Name:Dex Garsia , 01/19/2025 11:30:00 AM, [address] [place] [address] , [place], [phone], Progress Notes * ZACK TIPTONDOB:1960 (64 yo M)Acc No.[id number]:08/18/2024 Patient:?ZACK TIPTON :1960???Age:64 Y???Sex:Male Address:[address] [place] [address] Subjective: * Chief Complaints: * ???Steele's F/U * Medical History:? * Surgical History:? * Hospitalization/Major Diagno stic Procedure:? * Medications:? Objective: Assessment: * Assessment: 1.?Liver fibrosis - K74.00 ( Primary)?2.?History of chronic hepatitis - Z87.19? Plan: * Treatment: * 2.?History of chronic hepatitis?LAB: LIVER PROFILE ?LAB: CBC w DIFF ?LAB: ALPHA-FETOPROTEIN,TUMOR MARKER ?LAB: HCV LIVER FIBROSIS, FIBRO TEST ?LAB: Prothrombin Time INR * Procedure Codes:? * true * Date:? Generated for Rodney culver/Parvin/eTransmitting on:?01/19/2025 11:24 AM EDT
--- NOTE | 2025-01-19 12:08 | P.CONAN_ITS ---
[facility] Active Problems Active Problems: All Active Problems Elevated PSA (Acute) Past Medical History Medical History (Updated 01/15/25 @ 12:46 by Cyndy Graves RN) Nephrotic syndrome Nephrotic syndrome Asthma Substance abuse Depression Thyroiditis Chronic hepatitis C Hypothyroidism BPH (benign prostatic hyperplasia) Elevated PSA Family History Family history of problems with anesthesia: No Surgical History Surgical History (Updated 01/19/25 @ 10:35 by Heather Melgar RN) History of liver biopsy History of biopsy of kidney H/O colonoscopy H/O esophagogastroduodenoscopy History of prostate surgery History of Problems with Anesthesia: No Social History Social History (Updated 01/15/25 @ 12:46 by Cyndy Graves RN) Household Members: Spouse Patient Tobacco Use Status: Former Tobacco user Tobacco use type: Cigarette Use of substances other than those prescribed or required for medical reasons: No Last Used Substance Other:: [id number] taking methadone Are you DNR?: No Advance Directives: No Advance Directives Information Provided: Yes Poor oral hygiene: No Meds Allergies Allergy/AdvReac Type Severity Reaction Status Date / Time No Known Allergies Allergy Mild NOT Verified 11/10/20 14:25 APPLICABLE Active Medications: Current Medications Lactated Ringer's (Lr) 1,000 mls @ 80 mls/hr IVCONT .[id number] FABRICIO Last Admin: 01/19/25 11:03 Dose: 80 mls/hr Naloxone HCl (Naloxone Hcl 0.4 Mg/Ml Vial) 0.04 mg IVPUSH Q5M PRN PRN Reason: Excessive sedation or RR < 8 Home Medications ?Medication ?Instructions ?Recorded ?Confirmed ?Last Taken ?Type ondansetron HCl 4 mg tablet 4 mg PO Q8H PRN Nausea 08/30/20 12/24/23 Unknown History sumatriptan succinate 100 mg tablet 100 mg PO DIRECTED 11/10/20 12/24/23 Unknown History famotidine 40 mg tablet 40 mg PO BID 03/06/23 01/15/25 01/19/25 History omega 3-puz-ayu-fish oil 1,000 mg 1 cap PO DAILY 03/06/23 12/24/23 Unknown Histo ry (120 mg-180 mg) capsule (Fish Oil) cholecalciferol (vitamin D3) 50 50 mcg PO DAILY 12/24/23 01/15/25 Unknown History mcg (2,000 unit) capsule (Vitamin D3) coQ10 (ubiquinol) 100 mg capsule 100 mg PO DAILY 12/24/23 01/15/25 Unknown History cyanocobalamin (vitamin B-12) 500 500 mcg PO DAILY 12/24/23 01/15/25 Unknown History mcg tablet (Vitamin B-12) methadone 10 mg/mL oral concentrate 85 mg PO DAILY 12/24/23 01/19/25 01/18/25 History levothyroxine 75 mcg tablet 75 mcg PO DAILY 01/15/25 01/15/25 01/19/25 History Exam Height,Weight and Vital Signs: Height 5 ft 9 in Weight 81.2 kg Last Vital Signs Temp 97.4 F 01/19/25 10:41 Pulse 60 01/19/25 10:41 Resp 16 01/19/25 10:41 BP 141/121 H 01/19/25 10:41 Pulse Ox 96 01/19/25 10:41 O2 Del Method Room Air 01/19/25 10:41 Airway Mallampati Class: II (broken missing teeth, putty placed in one of the tooth spaces, pt confident it will remain in place, aware of aspiration risk if dislodged) TM Dist: >3cm Neck ROM: Full Heart: rrr Lungs: cta Assessment and Plan Assessment Anesthesia Assessment: Anesthesia Plan Discussed Final Anesthetic Review Family History of Problems with Anesthesia: No History of Problems with Anesthesia: No NPO: Yes ASA Class: II Final Preanesthetic Review: No Changes in Pt Med Stat, Meds/Allgs Chart Reviewed and Consent Obtained/Reviewed Patient Risk: Low Procedure Risk: Intermediate Anesthetic Plan Anesthetic Plan: MAC: Disposition: Standard PACU
--- NOTE | 2025-01-19 12:30 | P.CONAN_ITS ---
[facility] Active Problems Active Problems: All Active Problems Elevated PSA (Acute) Past Medical History Medical History (Updated 01/15/25 @ 12:46 by Cyndy Graves RN) Nephrotic syndrome Nephrotic syndrome Asthma Substance abuse Depression Thyroiditis Chronic hepatitis C Hypothyroidism BPH (benign prostatic hyperplasia) Elevated PSA Family History Family history of problems with anesthesia: No Surgical History Surgical History (Updated 01/19/25 @ 10:35 by Heather Melgar RN) History of liver biopsy History of biopsy of kidney H/O colonoscopy H/O esophagogastroduodenoscopy History of prostate surgery History of Problems with Anesthesia: No Social History Social History (Updated 01/15/25 @ 12:46 by Cyndy Graves RN) Household Members: Spouse Patient Tobacco Use Status: Former Tobacco user Tobacco use type: Cigarette Use of substances other than those prescribed or required for medical reasons: No Last Used Substance Other:: [id number] taking methadone Are you DNR?: No Advance Directives: No Advance Directives Information Provided: Yes Poor oral hygiene: No Meds Allergies Allergy/AdvReac Type Severity Reaction Status Date / Time No Known Allergies Allergy Mild NOT Verified 11/10/20 14:25 APPLICABLE Active Medications: Current Medications Lactated Ringer's (Lr) 1,000 mls @ 80 mls/hr IVCONT .[id number] FABRICIO Last Admin: 01/19/25 11:03 Dose: 80 mls/hr Naloxone HCl (Naloxone Hcl 0.4 Mg/Ml Vial) 0.04 mg IVPUSH Q5M PRN PRN Reason: Excessive sedation or RR < 8 Home Medications ?Medication ?Instructions ?Recorded ?Confirmed ?Last Taken ?Type ondansetron HCl 4 mg tablet 4 mg PO Q8H PRN Nausea 08/30/20 12/24/23 Unknown History sumatriptan succinate 100 mg tablet 100 mg PO DIRECTED 11/10/20 12/24/23 Unknown History famotidine 40 mg tablet 40 mg PO BID 03/06/23 01/15/25 01/19/25 History omega 7-jum-bsg-fish oil 1,000 mg 1 cap PO DAILY 03/06/23 12/24/23 Unknown Histo ry (120 mg-180 mg) capsule (Fish Oil) cholecalciferol (vitamin D3) 50 50 mcg PO DAILY 12/24/23 01/15/25 Unknown History mcg (2,000 unit) capsule (Vitamin D3) coQ10 (ubiquinol) 100 mg capsule 100 mg PO DAILY 12/24/23 01/15/25 Unknown History cyanocobalamin (vitamin B-12) 500 500 mcg PO DAILY 12/24/23 01/15/25 Unknown History mcg tablet (Vitamin B-12) methadone 10 mg/mL oral concentrate 85 mg PO DAILY 12/24/23 01/19/25 01/18/25 History levothyroxine 75 mcg tablet 75 mcg PO DAILY 01/15/25 01/15/25 01/19/25 History Exam Height,Weight and Vital Signs: Height 5 ft 9 in Weight 81.2 kg Last Vital Signs Temp 97.4 F 01/19/25 10:41 Pulse 60 01/19/25 10:41 Resp 16 01/19/25 10:41 BP 141/121 H 01/19/25 10:41 Pulse Ox 96 01/19/25 10:41 O2 Del Method Room Air 01/19/25 10:41 Airway Mallampati Class: II TM Dist: >3cm Neck ROM: Full Loose/Missing/Broken Teeth: Yes and Lower Assessment and Plan Assessment Anesthesia Assessment: Anesthesia Plan Discussed and Chart Reviewed Final Anesthetic Review Family History of Problems with Anesthesia: No History of Problems with Anesthesia: No NPO: Yes ASA Class: III Final Preanesthetic Review: No Changes in Pt Med Stat, Meds/Allgs Chart Reviewed, Consent Obtained/Reviewed and Anes Risks/Benef Reviewed Patient Risk: Intermediate Procedure Risk: Low Anesthetic Plan Anesthetic Plan: TIVA Disposition: Standard PACU
[2025-01-19 12:48] VITALS: BP 98/60; PULSE 48; RESP 15; TEMP 36.3; O2SAT 97
--- NOTE | 2025-01-19 12:53 | PM.OP ---
Brief Operative Note Date of Service: 01/19/25 Pre-op diagnosis: Steele's Post-op diagnosis: other (Same, Hiatal hernia, Gastritis) Procedure: EGD with biopsies, WATS brushings, and Cypher study Surgeon: Dex Garsia MD Anesthesia: MAC Was an Health And Wellness Coordinator used for this Procedure?: No Estimated blood loss (mL): 2.0 Pathology: other (A. EG Junction at 35cm) Condition: stable Disposition: PACU
[2025-01-19 13:00] VITALS: BP 110/72; PULSE 55; RESP 18; TEMP 36.1; O2SAT 98
--- NOTE | 2025-01-19 22:44 | OP_ITS ---
DATE OF SERVICE: 01/19/2025 SURGEON: Dex Garsia MD INDICATIONS: The patient presents for evaluation of Steele's esophagus with previous biopsies showing low-grade dysplasia. Full consent has been obtained from him for this, including risks of bleeding and perforation. PREOPERATIVE DIAGNOSIS: POSTOPERATIVE DIAGNOSIS: PROCEDURE PERFORMED: Esophagogastroduodenoscopy with biopsies, WATS brushings, and Cypher study. ESTIMATED BLOOD LOSS: COMPLICATIONS: ANESTHESIA: Medication used, monitored anesthesia care. ASSISTANTS: SPECIMENS: PREOPERATIVE DIAGNOSES: History of Steele esophagus with low-grade dysplasia. POSTOPERATIVE DIAGNOSES: History of Steele's esophagus with low-grade dysplasia, small areas of Steele's esophagus, small hiatal hernia, chronic appearing gastritis. DESCRIPTION OF PROCEDURE: The patient was placed in the left lateral decubitus position. The Olympus video gastroscope was passed in the posterior oropharynx and upper esophagus under direct vision. The scope was passed slowly to the distal esophagus. The gastroesophageal junction appeared at 35 cm. This area was notable for some irregularity with small, less than 1 cm areas of Steele's appearing mucosa. Other portions of the gastroesophageal junction appeared normal. There was no esophagitis nor any gross evidence of any lesions. The scope entered the stomach and was advanced to the pylorus. The duodenum was cannulated to the descending portion. The duodenum including the bulb appeared normal without mass or ulceration. The scope was withdrawn back in the stomach. The gastric antrum had some changes of a chronic gastritis, but with good peristalsis. There was no ulceration or mass. Biopsies were obtained from the antrum. The scope was retroflexed visualizing the proximal stomach carefully, which appeared normal, without any sign of mass or ulceration. The scope was withdrawn back in the esophagus. Biopsies were obtained at the EG junction from the areas appearing to be grossly consistent with Steele mucosa. I then obtained brushings for the WATS from the gastroesophageal junction as well. Proximal to the gastroesophageal junction, the esophageal mucosa appeared normal. The scope was withdrawn from the patient. He tolerated the procedure well and was returned to the recovery area in stable condition. IMPRESSION: 1. History of Steele's esophagus, rule out dysplasia. 2. Small hiatal hernia. 3. Chronic appearing gastritis. PLAN: The results of the biopsies and other studies will be checked. Depending upon those results, we would then determine his next endoscopy, which may very well be within 1 year if low-grade dysplasia persists. Certainly, if there is high-grade dysplasia or just if the low-grade dysplasia persists, then another option would be that of ablation of the Steele's tissue. He currently is only on a low dose of famotidine at 20 mg daily as he does not tolerate PPIs due to a lot of GI complaints from them. However, we may need to increase the famotidine or at least perhaps try a PPI again. He was advised not to use any aspirin and NSAIDs for 1 week. MD SHAD Durán/ALESSIO / [id number] MTDD
== END 2025-01-19 13:54 | disposition home or self-care (01) ==
PROVIDERS: Visit Provider Internal Medicine
PROC: 0DJ08ZZ Inspection of Upper Intestinal Tract, Via Natural or Artificial Opening Endoscopic (ICD-10-PCS; CPT 43235; principal; 2025-01-19 11:30)
DX: K22.710 Barrett's esophagus with low grade dysplasia (principal); K21.9 Gastro-esophageal reflux disease without esophagitis; K29.50 Unspecified chronic gastritis without bleeding; K44.9 Diaphragmatic hernia without obstruction or gangrene; K74.00 Hepatic fibrosis, unspecified; J45.909 Unspecified asthma, uncomplicated; Z86.19 Personal history of other infectious and parasitic diseases; E06.4 Drug-induced thyroiditis; T45.1X5S Adverse effect of antineoplastic and immunosuppressive drugs, sequela; E03.9 Hypothyroidism, unspecified; F11.20 Opioid dependence, uncomplicated; N04.9 Nephrotic syndrome with unspecified morphologic changes; Z79.899 Other long term (current) drug therapy; Z87.891 Personal history of nicotine dependence; Z98.890 Other specified postprocedural states
CPT/HCPCS: 43239; 88305; 88313; 88342; J2003; J2704

== ENCOUNTER 2025-04-29 10:20 | Outpatient (AMB) | payer MEDICARE, MEDICAID, SELFPAY ==
--- OUTSIDE RECORDS SUMMARY | 2023-12-26 03:30 | XMS_ITS ---
Author Organization [facility] Address [address] [place] [address] Care Team Providers Care Waistband Setter Name Role Phone Mahnaz Witt CNP Primary Care Provider Un available Dex Garsia Unavailable [phone] REASON FOR VISIT mcfarland's w/ low grade dysplasia Problems Problem Type SNOMED Code ICD Code Onset Dates Problem Status W/U Status Risk Notes Problem Gastro-esophagea l reflux disease without esophagitis (180737881) Gastro-esophage al reflux disease without esophagitis (K21.9) Active confirmed Encounters Encounter Location Date Provider Diagnosis [facility] [place] Out[place] [address] [place] [phone] 12/26/2023 Dex Garsia 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
--- OUTSIDE RECORDS SUMMARY | 2024-05-20 09:00 | XMS_ITS ---
Author Organization [facility] Address [address] [place] [address] Care Team Providers Care Gis Software Engineer Name Role Phone Kostas Boone MD Primary Care Provider Vanessa Easton Unavailable [phone] Medications Medication SIG (Take, Route, Fr equency, [...] 05/20/2024 Encounters Encounter Location Date Provider Diagnosis [facility] [address] [place] [address] 05/20/2024 Vanessa Hartman Plan Of Treatment No Information Progress Notes * DANUTA KostasDOB:1960 (65 yo M)Acc No.[id number]:05/20/2024 Progress Notes Patient: Kostas NICHOLSON Provider: Candy Hartman DPM :1960 A ge:64 Y S ex:Male Date:05/20/2024 Address:[address], [id number] Pcp:Kostas Boone MD Subjective: * Chief Complaints: [...] enies. C ardiovascular: Pacemaker d enies. M BUFFING WHEEL FORMER MACHINE d enies. W PW d enies. C [...] DPM Date: Generated for Rodney culver/Parvin/Sofi on: 0 04/29/2025 12:45 PM EDT
--- OUTSIDE RECORDS SUMMARY | 2025-01-19 07:30 | XMS_ITS ---
Author Organization [facility] Address [address] [place] [address] Care Team Providers Care Transfer Clerk Name Role Phone Mahnaz Witt CNP Primary Care Provider Un available Dex Garsia Unavailable [phone] REASON FOR VISIT gerd,mcfarland's esophagus w/ low grade dysplasia Encounters Encounter Location Date Provider Diagnosis [facility] [place] Out[place] [address] [place], [place] [phone] 01/19/2025 Dex Garsia 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 ; Gastritis K29.70 and Hiatal hernia K44.9 Assessments Encounter Date Diagnosis (ICD Code) Assessment Notes Treatment Notes Treatment Clinical Notes Section Notes 01/19/2025 Mcfarland esophagus (ICD-10 - K22.70) 01/19/2025 Gastritis (ICD-10 - K29.70) 01/19/2025 Hiatal hernia (ICD-10 - K44.9) Plan Of Treatment No Information Progress Notes * ZACK TIPTONDOB:1960 (65 yo M)Acc No.[id number]:01/19/2025 EGD/MAC Patient: ZACK NICHOLSON Provider: Kerry Garsia MD :1960 A ge:65 Y S ex:Male Date:01/19/2025 Address: [place] [address] [facility] Pcp:Mahnaz Witt CNP Subjective: * Chief Complaints: [...] 0 01/19/2025 Generated for Rodney culver/Parvin/Toneyitting on: 0 04/29/2025 12:44 PM EDT
--- NOTE | 2025-04-29 10:49 | A.OFFVIS_ITS ---
Intake Visit Reasons: Follow up Allergies No Known Allergies Allergy (Mild, Verified 11/10/20 14:25) NOT APPLICABLE Medication List - Last Reconciled 04/29/25 by Marlene Mccarthy MD cholecalciferol (vitamin D3) (Vitamin D3) 50 mcg PO DAILY coQ10 (ubiquinol) 100 mg PO DAILY cyanocobalamin (vitamin B-12) (Vitamin B-12) 500 mcg PO DAILY famotidine 40 mg PO BID levothyroxine 75 mcg PO DAILY methadone 85 mg PO DAILY omega 7-cos-xyn-fish oil 1,000 (120-180) mg (Fish Oil) 1 cap PO DAILY sumatriptan succinate 100 mg PO DIRECTED HPI Comments Details: 65 yr old man with migraines and dizziness, and a h/o hypothyroidism and Hep. C, who comes for a visit after a hiatus of > 3 yrs. ?In the last year the migraines frequency is upto 2/ wk and relieved within 1-2 hours by taking sumatriptan. It occasionally makes him a little bit tired otherwise no other side effects. His nephrotic syndrome seems to have also acted of recently after being in remission. Seeing a labor economist in [place] for Nephrotic syndrome. Back pain has been under control, sees a chiropractor and has been doing some lifting 40- 50 lb bags. Gets some paresthesia in the calves of crawling. Allergies and dust may trigger it. Dizziness has subsided. ???Does some walking and light arm weights. He has had migraines between the ages of childhood and 20 worse then went into remission to 3 years ago. No triggers have been identified. There is no aura. He gets a generalized throbbing headache with photophobia and sonophobia, but no nausea and vomiting. [facility] Medical History (Updated 04/29/25 @ 10:53 by Marlene Mccarthy MD) Nephrotic syndrome Nephrotic syndrome Asthma Substance abuse Depression Thyroiditis Chronic hepatitis C Hypothyroidism BPH (benign prostatic hyperplasia) Elevated PSA Surgical History (Updated 01/19/25 @ 10:35 by Heather Melgar RN) History of liver biopsy History of biopsy of kidney H/O colonoscopy H/O esophagogastroduodenoscopy History of prostate surgery Social History (Updated 01/15/25 @ 12:46 by Cyndy Graves RN) Household Members: Spouse Patient Tobacco Use Status: Former Tobacco user Tobacco use type: Cigarette Review of Systems Const Details: Sleep:? Difficulty getting to sleep?denies.? Difficulty maintaining sleep?denies? .? Urge to move legs?denies.? Teeth grinding?denies.? Shouting or Kicking during sleep?denies.? Abnormal behavior during sleep?denies.? Excessive sleep?denies.? Snoring?denies.? Daytime sleepiness?denies.? ?? General/Constitutional:? Change in appetite?denies.? Chills?denies.? Fatigue?denies.? Fever?denies .? Weight gain?denies.? Weight loss?denies.? ?? Ophthalmologic:? Blurred vision?denies.? Diminished visual acuity?denies.? ?? ENT:? Stuffiness?denies.? Decreased hearing?denies.? Dry mouth?denies.? Ear pain?denies.? Nosebleed?denies.? Ringing in the ears?denies.? Sinus pain?denies .? Sore throat?denies.? Swollen glands?denies.? ?? Endocrine:? Cold intolerance?denies.? Excessive thirst?denies.? Frequent urination? denies.? Heat intolerance?denies.? ?? Respiratory:? Shortness of breath?admits.? Chest pain?denies.? Cough?denies.? ?? Breast:? Breast lump?denies.? Nipple discharge?denies.? ?? Cardiovascular:? Chest pain at rest?denies.? Chest pain with exertion?denies.? Claudication?denies.? Dizziness?denies.? Fluid accumulation in the legs?admits.? Irregular heartbeat?denies.? Palpitations?denies.? ?? Gastrointestinal:? Abdominal pain?denies.? Constipation?admits.? Diarrhea?denies.? Difficulty swallowing?denies.? Heartburn?denies.? Nausea?denies.? Rectal bleeding?denies.? ?? Hematology:? Easy bruising?denies.? Prolonged bleeding?denies.? ?? Genitourinary:? Frequent urination?denies.? Urgency?denies.? Incontinence?denies.? Erectile Dysfunction?denies.? ?? Musculoskeletal:? Neck pain?denies.? Back pain?denies.? Muscle aches?denies.? Painful joints?denies.? Sciatica?denies.? Weakness?denies.? ?? Podiatric:? Difficulty walking?denies.? Foot numbness?denies.? ?? Neurologic:? Difficulty swallowing?denies.? Balance difficulty?denies.? Coordination? normal.? Difficulty speaking?denies.? Dizziness?admits.? Fainting?denies.? Gait abnormality?denies.? Headache?admits.? Loss of strength?denies.? Loss of use of extremity?denies.? Low back pain?denies.? Memory loss?denies.? Seizures?denies.? Tics?denies.? Tingling/Numbness?denies.? Transient loss of vision?denies.? Tremor?denies.? ?? Psychiatric:? Anxiety?denies.? Auditory/visual hallucinations?denies.? Delusions?denies .? Depressed mood?admits.? Stressors?admits.? Substance abuse?denies.? Suicidal thoughts?denies.? Physical Exam Neuro Other: Neurological: ? Abnormal neurological findings:?Normal.?.? Mental Status:?alert and oriented X 3,?Normal attention, orientation, memory and affect.? Cranial Nerves:?Pupils are equal, round and reactive to light. Fundoscopy shows normal disc bilaterally. External occular muscles are intact. Visual miranda are full, no ptosis. Face is symmetrical, no facial weakness or droop. Facial sensations are normal. Tongue protrudes in midline. Palate elevates symmetrically. Shoulder shrugging is normal..? Motor Examination:?Normal muscle tone, bulk and strength,?No atrophy or fasciculations,?No drift of the extended upper extremities,?Deep tendon reflexes are 2+?,?Plantars are flexor?.? Straight Leg Raising:?90 degrees.? Sensory Exam:?Normal light touch, temperature, pinprick, vibration and joint-position sensations?,?Rhomberg sign is absent.? Coordination:?No titubation,?[id number], zhev-rhyn-btui test and rapid alternating movements were normal.? Gait Exam:?Within normal limits.? Cerebellar Signs:?Mtgjuj-kk-hsid and kbhi-ut-mhtk is normal,?no dysdiadochokinesia?.? Extrapyramidal System:?No tremor, rigidity with normal facial expressions,?No bradykinesia, no bradyphrenia. Normal arm swing and posture. No propulsion or retropulsion.? Speech:?Normal,?no dysphasia or dysarthria..? Mini Mental Status Exam: ? Level of Consciousness:?Alert.? Orientation:?Knows correct year, month, date, day and season,?Knows correct city, county and state. Knows correct location and floor.? Registration:?Able to register 3 objects.? Attention:?Serial 7's performed accurately.? Recall:?Able to recall 3 out of 3 objects.? Language:?Normal spontaneous speech, fluency, repetition,naming, comprehension, reading and writing.? Total Score ?30/30.? General Examination: ? GENERAL APPEARANCE:?normal,?in no acute distress.? HEAD:?normocephalic,?atraumatic.? EYES:?sclera non-icteric,?conjunctiva clear.? EARS:?auditory canal clear,?tympanic membrane intact, clear.? NOSE:?no lesions.? ORAL CAVITY:?gums normal,?mucosa moist,?no lesions.? THROAT:?clear.? NECK/THYROID:?no cervical lymphadenopathy,?thyroid normal,?neck supple, full range of motion,?no carotid bruit.? SKIN:?no rashes,?no significant birthmarks.? HEART:?S1, S2 normal,?no murmurs.? LUNGS:?clear anteriorly and posteriorly.? CHEST:?no gross rib deformity,?clear to auscultation.? BACK:?normal exam of spine.? EXTREMITIES:?no edema.? PERIPHERAL PULSES:?normal.? PSYCH:?alert, oriented,?cognitive function intact,?cooperative with exam.? Assessment & Plan Assessment & Plan (1) Migraines: Code(s): G43.909 - Migraine, unspecified, not intractable, without status migrainosus Category: Medical Plan He will continue to use his sumatriptan half to 1 tablet of the 100 mg at onset of the migraine with a maximum of 200 mg a day. It is quite effective within 1- 2 hours. He feels that twice a week frequency is too frequent and therefore I am starting him on migraine prophylaxis with propranolol 60 mg a day. He does run borderline low blood pressure. He will be seen in follow-up in 3 months by Toyin Medications: New propranolol 60 mg PO ONCE 30 tabs 4RF 30 days Changed From sumatriptan succinate 100 mg PO DIRECTED To sumatriptan succinate 100 mg orally at onset of migraine. May repeat in 2hrs. Max 2/ 24 hrs PRN; 9 tabs 8RF migraine headache 30 days Coding Level of Care Code New Pt Level 5 (91355) Diagnoses Migraines G43.909
--- OUTSIDE RECORDS SUMMARY | 2025-04-29 12:45 | XMS_ITS | Patient Health Record ---
Author Organization [facility] Address [address] [place] [address] Care Team Providers Care Heel Molder Name Role Phone Mahnaz Witt CNPmanjinderazucena Primary Care Provider Un available Ady Dex Unavailable [phone] Allergies No Known Allergies Results Component Value Reference Range Notes Complete Blood Count Auto Di ff Reviewed date:10/03/2024 05:18:21 PM Interpretation: Performing Lab:[facility], [address] [place] [phone] Notes/Report: White Blood Count 4.4 4.8-10.8 X10*3/uL Red Blood Count 4.82 4.60-5.80 X10*6/uL Hemoglobin 14.4 14.0-18.0 g/dl Hematocrit 43.6 42.0-52.0 % Mean Corpuscular Volume 90.5 80.0-98.0 fL Mean Corpuscular Hemoglobin 29.9 27.0-33.0 pg Mean Corpuscular HGB Conc 33.0 31.0-36.0 g/dl Red Cell Distribution Width 12.3 11.0-16.0 % Platelet Count 190 160-400 X10*3/uL Mean Platelet Volume 10.0 9.4-12.4 fL Neutrophils Percent Auto 56.4 45-73 % Imm Gran Pct Auto 0.2 0.0-0.4 % Lymphocytes Percent Auto 29.1 20-40 % Monocytes Percent Auto 8.6 2-11 % Eosinophils Percent Auto 5.0 0-4 % Basophils Percent Auto 0.7 0-2 % NRBC Pct Auto 0.0 0.0-0.2 /100WBC Neutrophils Absolute Auto 2.5 2.0-8.3 x10*3/u L Imm Gran Abs Auto 0.01 0.00-0.03 X10*3/uL Lymphocytes Absolute Auto 1.3 1.2-4.9 X10*3/u L Monocytes Absolute Auto 0.4 0.1-1.2 X10*3/uL Eosinophils Absolute Auto 0.2 0.0-0.4 X10*3/u L Basophils Absolute Auto 0.0 0.0-0.2 X10*3/uL NRBC Abs Auto 0.000 0.0-0.012 X10*3/uL Prothrombin Time INR Reviewed date:10/03/2024 05:18:31 PM Interpretation: Performing Lab:[facility], [address] [place] [phone] Notes/Report: Prothrombin Time 11.7 10.9-12.4 SEC INTERNATIONAL NORM RATIO 1.0 0.9-1.1 INTERNATIONAL NORMALIZED RATIO (INR) REFERENCE RANGES Reference Range For patients not on anticoagulant therapy: 0.9 - 1.1 INR ranges for oral anticoagulant therapy: For prevention and treatment of venous thrombosis and pulmonary embolism: 2.0 - 3.0 For acute myocardial infarction with aspirin therapy: 2.0 - 3.0 For acute myocardial infarction without aspirin therapy: 3.0 - 4.0 For patients with mechanical prosthetic heart valves: 2.5 - 3.5 Liver Panel Reviewed date:10/03/2024 05:18:43 PM Interpretation: Performing Lab:[facility], [address] [place] [phone] Notes/Report: Bilirubin Total 0.8 0.0-1.0 mg/dL Bilirubin Direct 0.3 0.0-0.5 mg/dL Aspartate Amino Transferase 30 5-37 U/L Alanine Aminotransferase 17 0-40 U/L Total Protein 7.8 6.5-8.0 g/dL Albumin Level 4.3 3.5-5.0 g/dL Alkaline Phosphatase 81 39-117 U/L Alpha Fetoprotein Reviewed date:10/09/2024 10:14:28 AM Interpretation: Performing Lab:[facility], [address] [place] [phone] Notes/Report: Alpha Fetoprotein 0.9 <6.1 ng/mL This test was performed using the [employer] chemiluminescent method. Values obtained from different assay methods cannot be used interchangeably. AFP levels, regardless of value, should not be interpreted as absolute evidence of the presence or absence of disease. THIS TEST WAS PERFORMED AT: [facility] [address] [place] [phone] ERI WATTS MD Liver Fibrosis Pnl Reviewed date:10/09/2024 10:14:19 AM Interpretation: Performing Lab:[facility], [address] [place] [phone] Notes/Report: Liver Fibrosis Score 0.44 Liver Fibrosis Stage F1-F2 Liver Fibrosis Interpretation SEE NOTE minimal fibrosis Fibro Test Score (f) Metavir Score f>=0 and f<=0.21 : F0 (no fibrosis) f>0.21 and f<=0.27 : F0-F1 (no fibrosis) f>0.27 and f<=0.31 : F1 (minimal fibrosis) f>0.31 and f<=0.48 : F1-F2 (minimal fibrosis) f>0.48 and f<=0.58 : F2 (moderate fibrosis) f>0.58 and f<=0.72 : F3 (advanced fibrosis) f>0.72 and f<=0.74 : F3-F4 (advanced fibrosis) f>0.74 and f<=1.00 : F4 (severe fibrosis) Nec Inflam Act Score 0.06 Nec Inflam Act Grade A0 Nec Inflam Act Interpretation SEE NOTE no activity ActiTest Score (a) Metavir Score a>=0 and a<=0.17 : A0 (no activity) a>0.17 and a<=0.29 : A0-A1 (no activity) a>0.29 and a<=0.36 : A1 (minimal activity) a>0.36 and a<=0.52 : A1-A2 (minimal activity) a>0.52 and a<=0.60 : A2 (significant activity) a>0.60 and a<=0.62 : A2-A3 (significant activity) a>0.62 and a<=1.00 : A3 (severe activity) KQX-Rsiwp-4-Macroglobulin 430 106-279 mg/dL FIB-Haptoglobin 114 43-212 mg/dL FIB-Apolipoprotein A1 205 94-176 mg/dL FIB-Total Bilirubin 0.6 0.2-1.2 mg/dL FIB-GGT 12 3-70 U/L FIB-ALT 15 9-46 U/L Reference ID [id number] Footnote SEE NOTE The reliability of results is dependent on compliance with the preanalytical and analytical conditions recommended by [employer]. The tests have to be deferred for: acute hemolysis, acute hepatitis, acute inflammation, extra hepatic cholestasis. The advice of a specialist should be sought for interpretation in chronic hemolysis and Gilbert's syndrome. The test interpretation is not validated in liver transplant patients. Isolated extreme values of one of the components should lead to caution in interpreting the results. In case of discordance between a biopsy result and a test, it is recommended to seek the advice of a specialist. The causes of these discordances could be due to a flaw of the test or to a flaw in the biopsy: i.e. a liver biopsy has a 33% variability rate for one fibrosis stage. FibroTest is interpretable for chronic hepatitis B and C, alcoholic and non alcoholic steatosis. ActiTest is interpretable for chronic hepatitis B and C. The performance characteristics have been determined by [facility]. It has not been cleared or approved by the U.S. Food and Drug Administration. Performance characteristics refer to the analytical performance of the test. [employer], the associated logo, [employer] and all associated [employer] chung are the registered trademarks of [employer]. All third libertarian chung - (R) and (TM) - are the property of their respective owners. (C) [id number] [employer]. All rights reserved. THIS TEST WAS PERFORMED AT: [facility] [address] [place] [address] TAMEKA JONES MD,PHD,REENA US abdomen comp w elastograp hy Reviewed date:10/23/2024 11:13:38 AM Interpretation: Performing Lab: Notes/Report: [address] [address] Ultrasound Report Signed Patient: Kostas Dunn MR#: [id number] 2 : 1960 Acct:[id number] Age/Sex: 64 / M ADM Date: 10/03/24 Loc: HO.US Attending Dr: Dex Garsia MD Ordering Physician: Dex Garsia MD Date of Service: 10/03/24 Procedure(s): US abdomen comp w elastography Accession Number(s): [id number] cc: Mahnaz Witt [facility]; Dex Garsia MD EXAMINATION: US ABDOMEN COMPLETE WITH LIVER ELASTOGRAPHY HISTORY: LIVER FIBROSIS TECHNIQUE: Real-time grayscale ultrasound imaging of the abdomen was performed and images were reviewed. COMPARISON: Comparison is made with the prior examination dated 09/27/2023. FINDINGS: Liver: The right lobe of the liver measures 12.8 cm in size. The left lobe of the liver measures 6.1 cm in size. The liver demonstrates coarsened echotexture. No focal mass or intrahepatic biliary ductal dilatation is identified. There is normal hepatopedal flow in the portal vein. Ultrasound elastography of the liver was performed with 10 separate measurements of the liver parenchyma with the patient in the supine position. Measurements were obtained approximately 2 cm below Bob's capsule and perpendicular to the capsule. Images are of satisfactory quality. The median shear wave velocity is 1.49 m/s (previously 1.27 m/s). The interquartile range/median (IQR/median) is 0.11. Gallbladder and biliary tree: The gallbladder is unremarkable, without evidence of calculi, wall thickening, or pericholecystic fluid. There is no sonographic Weaver sign. The common bile duct is normal in caliber measuring 9 mm. Kidneys: Right kidney measures 9.2 cm in length and demonstrates an upper pole cyst measuring 8 x 9 x 11 mm. The left kidney measures 10.3 cm in length and demonstrates an interpolar cyst measuring 7 x 7 x 8 mm. The kidneys are otherwise unremarkable, without evidence of solid masses, hydronephrosis, or calculi. Pancreas: The pancreatic head and neck are unremarkable. The remainder the pancreas is obscured by bowel gas. Spleen: The spleen is normal in size and contour, measuring 10.7 cm in length. Abdominal aorta and inferior vena cava: The visualized portions of the abdominal aorta and inferior vena cava are normal in caliber. There is no free fluid in the abdomen. US/US abdomen comp w elastography IMPRESSION: Mildly coarsened hepatic echotexture. The liver is otherwise unremarkable in appearance. Bilateral renal cysts as described. The median shear wave velocity is 1.49 m/s, corresponding to a median liver stiffness of 6.68 kPa. The IQR/median value is 0.11. This is indicative of a quality data set. Findings are indicative of a low elastography value which rules out advanced chronic liver disease in asymptomatic patients. REFERENCE: Society of Radiologists in Ultrasound Liver Stiffness Thresholds (2020): LIVER STIFFNESS THRESHOLDS: *Shear wave velocity less than 1.3 m/s (Liver Stiffness equal or less than 5 kPa): High probability of being normal. *Shear wave velocity less than 1.7 m/s (Liver Stiffness less than 9 kPa): In the absence of other known clinical signs, rules out compensated advanced chronic liver disease. *Shear wave velocity between 1.7-2.1 m/s (Liver Stiffness 9-13 kPa): Suggestive of compensated advanced chronic liver disease but need further test for confirmation. *Shear wave velocity between 2.1-2.4 m/s (Liver Stiffness 13-17 kPa): Rules in compensated advanced chronic liver disease. *Shear wave velocity greater than 2.4 m/s (Liver Stiffness over 17 kPa): Suggestive of clinically significant portal hypertension. QUALITY OF DATA SET: *IQR/Median value equal or less than 0.15 implies a quality data set. *IQR/Median value over 0.15 implies a poor quality data set. SIGNIFICANT CHANGE FROM PRIOR EXAM: Significant change if liver stiffness measurement is 10% or greater from prior exam. OTHER CONSIDERATIONS: The stage of liver fibrosis may be overestimated in the setting of acute hepatitis, liver inflammation, elevated liver function tests, hepatic vascular congestion, obstructive cholestasis, non-fasting state, and infiltrative diseases such as amyloidosis and lymphoma. In some patients with NAFLD, the liver stiffness thresholds for compensated advanced chronic liver disease may be lower. In causes other than viral hepatitis and NAFLD, liver stiffness thresholds are not well established. Electronically signed by: Dex Florentino MD 10/06/2024 07:19 AM EST Dictated By: Dex Florentino MD Signed By: <Electronically signed by Dex Florentino MD in OV> 10/06/24 0719 DD/ 1040 TD/TT: 10/03/[address] Repairer Helper: Pathology (Not yet reviewed by provider) Interpretation: Performing Lab:[facility], [address] [place] [phone] Notes/Report: Reason For Referral No Information Medications Medication SIG (Take, Route, Frequency, Duration) Notes Start Date End Date Status Methadone HCl 64 mg 1 ml mixed with wate r as needed Orally Once a day Active Levothyroxine Sodium 75 MCG 1 capsule Or ally Once a day Active Vitamin G00-[id number] Acid 500-400 MCG 1 Orally QD Active CoQ10 50 MG 1 capsule with a beba l Orally Once a day Active Vitamin D 2000 UNIT 2 tablet Orally Once a day Active Famotidine 40 MG TAKE 1 TABLET BY TWICE A DAY for 90 Active Immunizations Vaccine Route Administration Date Status Comme nts Influenza Unknown 04/17/2019 Refused Influenza Unknown 07/20/2022 Refused Problems Problem Type SNOMED Code ICD Code Onset Dates Problem Status W/U Status Risk Notes Problem Esophageal reflux (827560785) Esophageal reflux (K21.9) Active confirmed Problem Gastro-esophageal reflux disease without esophagitis (040674517) Gastro-esophageal reflux disease without esophagitis (K21.9) Active confirmed Problem 851691105 Abdominal bloati ng (R14.0) Active confirmed Problem 586261800 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) Active confirmed Problem 1837989629546411 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) Active confirmed Problem 170831212 Gastroesophageal reflux disease without esophagitis (K21.9) Active confirmed Problem 243975920 Chronic hepatiti s C without hepatic coma (B18.2) Active confirmed Problem History of polyp of colon (situation) (608354169) History of colon polyps (Z86.010) Active confirmed Problem 167764565 Screening for colon cancer (Z12.11) Active confirmed Problem 12719354 Constipation, unspecified constipation type (K59.00) Active confirmed Problem 084650927 Hx of adenomatou s colonic polyps (Z86.010) Active confirmed Problem 919065788 Abdominal pain, right upper quadrant (R10.11) Active confirmed Problem Steele esophagus (621283622) Steele esophagus (K22.70) Active confirmed Problem 17845897302353 History of hepatitis C (Z86.19) Active confirmed Problem 91126148 Diarrhea, unspecified type (R19.7) Active confirmed Problem History of gastrointestinal disease (745466657) History of chronic hepatitis (Z87.19) Active confirmed Problem 79462598 Irritable bowel syndrome with both constipation and diarrhea (K58.2) Active confirmed Problem Diverticulosis of colon (306928246) Diverticulosis of colon (K57.30) Active confirmed Problem 582942046 Family history o f celiac disease (Z83.79) Active confirmed Problem 810373070 Steele''s esophagus without dysplasia (K22.70) Active confirmed Problem 53978155 Liver fibrosis (K74.00) Active confirmed Vital Signs Blood pressure diastolic 11 mm Hg 10/23/2024 Height 68.5 in 10/23/2024 Blood pressure systolic 111 mm Hg 10/23/2024 Weight 176 lbs 10/23/2024 BMI 26.37 kg/m2 10/23/2024 Procedures Procedure Date Ordered Date Performed Result Body Sit e UPPER GI ENDOSCOPY 10/23/2024 N/A Encounters Encounter Location Date Provider Diagnosis [facility] Outpatient [address] [place] [id number] 01/19/2025 Dex Garsia Steele esophagus K22.70 ; Gastritis K29.70 and Hiatal hernia K44.9 [facility] [address] [place] [phone] 10/23/2024 Dex Garsia Liver fibrosis K74.0 0 ; Steele's esophagus with low grade dysplasia K22.710 ; History of hepatitis C Z86.19 ; Screening for colon cancer Z12.11 and Gastro-esophageal reflux disease without esophagitis K21.9 [facility] [address] [address] 06/20/2024 Dex Garsia [facility] [address] [address] 08/18/2024 Dex Garsia Liver fibrosis K74.0 0 and History of chronic hepatitis Z87.19 [facility] [address] [place] [phone] 02/04/2025 Dex Garsia Assessments Encounter Date Diagnosis (ICD Code) Assessment Notes Treatment Notes Treatment Clinical Notes Section Notes 01/19/2025 Gastritis (ICD-10 - K29.70) 01/19/2025 Steele esophagus (ICD-10 - K22.70) 10/23/2024 Steele's esophagus with low grade dysplasia (ICD-10 - K22.710) .Overall, Wu appears to be doing well at the present time. We did review the findings on his upper endoscopy last year, and specifically reviewed the report of low-grade dysplasia on the routine pathology. I advised him of the importance of this in regard to needing to follow it closely and be sure there is no progression of this to either high-grade dysplasia or cancer. The other tissue studies at that time were reassuring, but nonetheless I have recommended a repeat upper endoscopy for further biopsies. We did discuss that if there is any progression to high-grade dysplasia we would then definitely want to consider endoscopic ablation therapy. Ideally I would like to put him on a PPI but he cannot tolerate those based on previous experience and as such he will continue the current famotidine at 40 mg twice a day. Full consent has been obtained from him for the upper endoscopy, including risks of bleeding and perforation. The procedure will be done with monitored anesthesia care. We did review his recent liver studies which are all quite reassuring and I advised him that we should repeat those again in 1 year. We also discussed that he should be having another colonoscopy in 2027 for further screening. Wu was comfortable with this plan. Thank you again for allowing me to participate in Wu's care. I shall continue to keep you advised of his progress. 10/23/2024 Liver fibrosis (ICD-10 - K74.00) .Overall, Wu appears to be doing well at the present time. We did review the findings on his upper endoscopy last year, and specifically reviewed the report of low-grade dysplasia on the routine pathology. I advised him of the importance of this in regard to needing to follow it closely and be sure there is no progression of this to either high-grade dysplasia or cancer. The other tissue studies at that time were reassuring, but nonetheless I have recommended a repeat upper endoscopy for further biopsies. We did discuss that if there is any progression to high-grade dysplasia we would then definitely want to consider endoscopic ablation therapy. Ideally I would like to put him on a PPI but he cannot tolerate those based on previous experience and as such he will continue the current famotidine at 40 mg twice a day. Full consent has been obtained from him for the upper endoscopy, including risks of bleeding and perforation. The procedure will be done with monitored anesthesia care. We did review his recent liver studies which are all quite reassuring and I advised him that we should repeat those again in 1 year. We also discussed that he should be having another colonoscopy in 2027 for further screening. Wu was comfortable with this plan. Thank you again for allowing me to participate in Wu's care. I shall continue to keep you advised of his progress. 08/18/2024 History of chronic hepatitis (ICD-10 - Z87.19) 08/18/2024 Liver fibrosis (ICD-10 - K74.00) 01/19/2025 Hiatal hernia (ICD-10 - K44.9) 10/23/2024 History of hepatitis C (ICD-10 - Z86.19) .Overall, Wu appears to be doing well at the present time. We did review the findings on his upper endoscopy last year, and specifically reviewed the report of low-grade dysplasia on the routine pathology. I advised him of the importance of this in regard to needing to follow it closely and be sure there is no progression of this to either high-grade dysplasia or cancer. The other tissue studies at that time were reassuring, but nonetheless I have recommended a repeat upper endoscopy for further biopsies. We did discuss that if there is any progression to high-grade dysplasia we would then definitely want to consider endoscopic ablation therapy. Ideally I would like to put him on a PPI but he cannot tolerate those based on previous experience and as such he will continue the current famotidine at 40 mg twice a day. Full consent has been obtained from him for the upper endoscopy, including risks of bleeding and perforation. The procedure will be done with monitored anesthesia care. We did review his recent liver studies which are all quite reassuring and I advised him that we should repeat those again in 1 year. We also discussed that he should be having another colonoscopy in 2027 for further screening. Wu was comfortable with this plan. Thank you again for allowing me to participate in Wu's care. I shall continue to keep you advised of his progress. 10/23/2024 Screening for colon cancer (ICD-10 - Z12.11) .Overall, Wu appears to be doing well at the present time. We did review the findings on his upper endoscopy last year, and specifically reviewed the report of low-grade dysplasia on the routine pathology. I advised him of the importance of this in regard to needing to follow it closely and be sure there is no progression of this to either high-grade dysplasia or cancer. The other tissue studies at that time were reassuring, but nonetheless I have recommended a repeat upper endoscopy for further biopsies. We did discuss that if there is any progression to high-grade dysplasia we would then definitely want to consider endoscopic ablation therapy. Ideally I would like to put him on a PPI but he cannot tolerate those based on previous experience and as such he will continue the current famotidine at 40 mg twice a day. Full consent has been obtained from him for the upper endoscopy, including risks of bleeding and perforation. The procedure will be done with monitored anesthesia care. We did review his recent liver studies which are all quite reassuring and I advised him that we should repeat those again in 1 year. We also discussed that he should be having another colonoscopy in 2027 for further screening. Wu was comfortable with this plan. Thank you again for allowing me to participate in Wu's care. I shall continue to keep you advised of his progress. 10/23/2024 Gastro-esophage al reflux disease without esophagitis (ICD-10 - K21.9) .Overall, Wu appears to be doing well at the present time. We did review the findings on his upper endoscopy last year, and specifically reviewed the report of low-grade dysplasia on the routine pathology. I advised him of the importance of this in regard to needing to follow it closely and be sure there is no progression of this to either high-grade dysplasia or cancer. The other tissue studies at that time were reassuring, but nonetheless I have recommended a repeat upper endoscopy for further biopsies. We did discuss that if there is any progression to high-grade dysplasia we would then definitely want to consider endoscopic ablation therapy. Ideally I would like to put him on a PPI but he cannot tolerate those based on previous experience and as such he will continue the current famotidine at 40 mg twice a day. Full consent has been obtained from him for the upper endoscopy, including risks of bleeding and perforation. The procedure will be done with monitored anesthesia care. We did review his recent liver studies which are all quite reassuring and I advised him that we should repeat those again in 1 year. We also discussed that he should be having another colonoscopy in 2027 for further screening. Wu was comfortable with this plan. Thank you again for allowing me to participate in Wu's care. I shall continue to keep you advised of his progress. Plan Of Treatment Pending Test Test Name Order Date UPPER GI ENDOSCOPY 10/23/2024 LIVER PROFILE 04/17/2019 LIVER PROFILE 11/12/2012 LIVER PROFILE 12/01/2021 LIVER PROFILE 10/12/2017 LIVER PROFILE 04/29/2015 LIVER PROFILE 07/20/2022 LIVER PROFILE 08/21/2014 LIVER PROFILE 10/13/2014 LIVER PROFILE 12/16/2014 LIVER PROFILE 09/24/2014 LIVER PROFILE 09/06/2023 LIVER PROFILE 08/18/2024 AMYLASE 10/12/2017 LIPASE 10/12/2017 T4 (THYROXINE) 12/01/2014 TSH (THYROID STIMULATING HORMONE) 2014 CBC w DIFF 10/13/2014 CBC w DIFF 12/16/2014 CBC w DIFF 09/24/2014 CBC w DIFF 09/06/2023 CBC w DIFF 08/18/2024 CBC w DIFF 10/12/2017 CBC w DIFF 04/17/2019 CBC w DIFF 11/12/2012 CBC w DIFF 04/29/2015 CBC w DIFF 07/20/2022 CBC w DIFF 08/21/2014 PROTHROMBIN TIME (PT, INR) 07/20/2022 PROTHROMBIN TIME (PT, INR) 04/17/2019 CLOSTRIDIUM DIFF TOXIN A&B (C DIFF) 11/04 ALPHA-FETOPROTEIN,TUMOR MARKER 5 ALPHA-FETOPROTEIN,TUMOR MARKER 2 ALPHA-FETOPROTEIN,TUMOR MARKER 4 ALPHA-FETOPROTEIN,TUMOR MARKER 5 ALPHA-FETOPROTEIN,TUMOR MARKER 8 ALPHA-FETOPROTEIN,TUMOR MARKER 3 ALPHA-FETOPROTEIN,TUMOR MARKER 2 ALPHA-FETOPROTEIN,TUMOR MARKER 9 CELIAC PANEL #10 09/06/2023 HEPATITIS C VIRAL LOAD 04/29/2015 HEPATITIS C VIRAL LOAD 04/17/2019 HEPATITIS C VIRAL LOAD 10/13/2014 HEPATITIS C VIRAL LOAD 12/16/2014 HEPATITIS C VIRAL LOAD 08/21/2014 HEPATITIS C VIRAL LOAD 09/24/2014 HEPATITIS C VIRAL LOAD 10/12/2017 HEPATITIS C VIRAL LOAD 09/06/2023 HEPATITIS C VIRAL LOAD 12/01/2021 GIARDIA AG, STOOL EIA 11/13/2017 OVA & PARASITES (O&P) 11/13/2017 CULTURE, STOOL 11/13/2017 US ABD 04/17/2019 US ABD 07/20/2022 FIBROSPECT SM II 08/21/2014 HCV LIVER FIBROSIS, FIBRO TEST 2 HCV LIVER FIBROSIS, FIBRO TEST 5 STOOL WBC 11/13/2017 US ABDOMEN COMP WITH ELASTOGRAPHY 2021 Prothrombin Time INR 09/06/2023 Prothrombin Time INR 08/18/2024 Liver Fibrosis Pnl 09/06/2023 Liver Fibrosis Pnl 07/20/2022 Pathology 01/19/2025 US abdomen comp w elastography 5 Future Test Test Name Order Date COLONOSCOPY 06/24/2013 UPPER GI ENDOSCOPY 12/21/2022 COLONOSCOPY 12/21/2022 UPPER GI ENDOSCOPY 09/06/2023 US abdomen comp w elastography 4 Insurance Providers Payer Name Payer Address Payer Phone Subscriber Number Group Number Insured Name Patient Relationship to Insured Coverage Start Date Coverage End Date MEDICARE OF [place] [address] [place] [id number] DANUTA KOSTAS Self - patient is the insured MEDICAID OF [id number] [address] [place] [address] [id number] DANUTA KOSTAS Self - patient is the insured Medical (General) History Medical History History ICD Code Laser prostate [...] Substance abuse-last used Heroin in 2013 Denies [place],DM,CVA,renal disease Asthma Saw Dr. Marcelo in 06/2018 at [facility]--had an EGD with GERD(no esophagitis) and small area of Steele's esopghagus-biopsies negative for dysplasia, and a negative colonoscopy in 06/2018 Nephrotic syndrome - being s een by [facility] Marketing Planner Dr. 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 There was no esophagitis. Biopsies from the Steele's mucosa revealed changes of indefinite low-grade dysplasia . Upper endoscopy in December 2023 revealed his known small hiatal hernia and very small areas of Steele's mucosa. Routine biopsies revealed changes of low-grade dysplasia but a WATS specimen was negative for dysplasia and a Cypher study revealed low probability of progression of the dysplasia. Surgical History Surgery Date(Month/Year)
--- OUTSIDE RECORDS SUMMARY | 2025-04-29 12:45 | XMS_ITS | Encounter Summary ---
Author Organization [facility] Address [address] [place] [address] Phone Care Team Providers Care Administrative Appeals Tribunal Member Name Role Phone Marcell Moya MD Primary Care Provider [phone] Encounter Details Date Type Department Care Team (Late st Contact Info) Description 02/04/2021 Orders Only [facility] [address] [place] [address] Melvin Torres MD [address] [place] [address], [address] [address] Nephrotic syndrome with minor glomerular abnormality Social [...] abnormality documented in this encounter Care Teams Administrative Appeals Tribunal Member Relationship Specialty Start Date End Date Marcell Moya MD [address] [place] PCP - General Internal Medicine 12/17/20 documented as of this encounter
--- OUTSIDE RECORDS SUMMARY | 2025-04-29 12:45 | XMS_ITS | Encounter Summary ---
Author Organization [facility] Address [address] [place] [address] Phone Care Team Providers Care Marine Fitter Name Role Phone Marcell Moya MD Primary Care Provider [phone] Encounter Details Date Type Department Care Team (Late st Contact Info) Description 02/11/2021 Orders Only [facility] [address] [place] [address] Melvin Torres MD [address] [place] [address], [address] [address] Nephrotic syndrome with minor glomerular abnormality Social [...] abnormality documented in this encounter Care Teams Marine Fitter Relationship Specialty Start Date End Date Marcell Moya MD [facility] [address] [place] PCP - General Internal Medicine 12/17/20 documented as of this encounter
--- OUTSIDE RECORDS SUMMARY | 2025-04-29 12:45 | XMS_ITS | Patient Health Record ---
Author Organization [facility] Address [address] [place] [address] Care Team Providers Care Blacking Machine Operator Name Role Phone Kostas Boone MD Primary Care Provider Vanessa Easton Unavailable [phone] Allergies No Known Allergies Reason For Referral No Information Medications Medication SIG (Take, Route, Frequency, Duration) Notes Start Date End Date Status Levothyroxine Sodium Active Ciclopirox Olamine 0.77 % 1 application Externally Twice a day to skin of feet including between the toes; Duration: 30 days Active Famotidine Active Social History [...] 09/02/2024 Encounters Encounter Location Date Provider Diagnosis [address] [address] 09/02/2024 Vanessa Hartman Tinea pedis of both feet B35.3 ; Pain in left foot M79.672 and Metatarsalgia, left foot M77.[address] [address] 05/14/2024 Vanessa Hartman [address] [place] [address] 05/20/2024 Vanessa Hartman Assessments Encounter Date Diagnosis [...] Medicare National [employer] [address] [place] [address] [id number] Kostas Dunn Self - patient is the insured Medical (General) History Medical History History ICD Code Broken bones covid-19 Headaches/Migraines Hepatitis Kidney disease Liver disease Lyme disease thyroid Chicken pox Surgical History Surgery Date(Month/Year) colonoscopy wisdom teeth extraction
--- OUTSIDE RECORDS SUMMARY | 2025-04-29 12:45 | XMS_ITS | Clinical Summary ---
Author Organization [facility] Address [address] [place] [address] Phone Care Team Providers Care Director Of Community Education Name Role Phone Marcell Moya MD Primary Care Provider [phone] Allergies No known active allergies Medications SUMAtriptan [...] Due Date Last Done Comments Pneumococcal Vaccine: 50+ Ye ars (1 of 2 - PCV) 01/12/1979 Colorectal Cancer Screening: Annual FOBT 01/12/2009 Colorectal Cancer Screening: Colonoscopy 01/12/2009 Colorectal Cancer Screening: Sigmoidoscopy 01/12/2009 Influenza Vaccine (#1) 2025 Hepatitis B Vaccine Aged Out No longe r eligible based on patient's age to complete this topic Insurance Medicare Medicaid [place] Medicare Medicaid [place] Care Teams Director Of Community Education Relationship Specialty Start Date End Date Marcell Moya MD [address] [place] PCP - General Internal Medicine 12/17/20
--- OUTSIDE RECORDS SUMMARY | 2025-04-29 12:45 | XMS_ITS | Clinical Summary ---
Author Organization [employer] Address [address] [facility] 7t [place] [address] Care Team Providers Care Yeast Pusher Name Role Phone Unavailable Primary Care Provider [...] FOR WHEEZING/SHORT NESS OF BREATH 1 Active amoxicillin (Amoxil) 500 MG capsuleIndicatio ns:History of tooth extraction, unspecified edentulism class Take 1 capsule (500 mg) by mouth every 8 (eight) hours for 7 days. 21 capsule 5 04/01/20 25 ibuprofen 600 MG tabletIndication s:History of tooth extraction, unspecified edentulism class Take 1 tablet (600 mg) by mouth every 6 (six) hours if needed for mild pain for up to 10 days. 20 tablet 5 04/04/20 25 oxyCODONE (Roxicodone) 5 MG immediate release tabletIndication s:History of tooth extraction, unspecified edentulism class Take 1 tablet (5 mg) by mouth every 6 (six) hours if needed for severe pain for up to 5 days. 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 Gastro-esophageal reflux disease without esophag itis 07/25/2024 [...] Encounters Date Type Department Care Team Description 04/08/2025 8:45 AM EDT Office Visit [facility] ADULT DENTAL [address] [place] [address] Vignesh Thompson DMD 03/26/2025 2:00 PM EDT Office Visit [facility] ADULT D[facility] [address] [place] [address] Angelo Barrow DDS 03/25/2025 11:00 AM EDT Office Visit [facility] ADULT D[facility] [address] [place] [address] Vignesh Thompson DMD Asthenopia (Primary Dx); History of tooth extraction, unspecified edentulism class from Last 3 Months Social History Tobacco [...] Sign Reading Time Taken Comments Blood Pressure 124/86 04/08/2025 8:40 AM EDT Pulse 70 03/26/2025 3:07 PM EDT Temperature - - Respiratory Rate - - Oxygen Saturation - - Inhaled Oxygen Concentration - - Weight - - Height - - Body Mass Index - - Plan of Treatment Upcoming Encounters Date Type Department Care Team (Late st Contact Info) Description 05/06/2025 9:15 AM EDT Office Visit [facility] ADULT DENTAL [address] [place] [address] Vignesh Thompson DMD [address] [place] [address] Health Maintenance Due Date Last Done Comments CT Colonography 1960 Colonoscopy 1960 Colorectal Cancer Screening 1960 Depression Screening 1960 FIT DNA/Cologuard 1960 FIT 1960 FOBT 1960 Lipid Panel 1960 SDOH Screening 1960 [...] - Risk 60-74 years 1-dose series) 2020 Dental Prophylaxis 04/19/2024 10/17/2023, 1 , 08/28/2017, Additional history exists Dental Oral Exam 09/18/2024 03/17/2024, , 08/18/2019, Additional history exists Dental X-Ray: Bitewings 03/18/2025 03/17/20 24, 04/05/2023, 03/06/2022, Additional history exists COVID-19 Vaccine ( season) 2025 07/11/2021 Influenza Vaccine (#1) 2025 Dental X-Ray: Full Mouth 04/06/2026 04/05/2023, 0409/2018 Tobacco Screening 04/08/2026 04/08/2025 HIB Vaccines Aged Out No longer eligi ble based on patient's age to complete this topic HPV Vaccines Aged Out No longer eligi ble based on patient's age to complete this topic IPV Vaccines Aged Out No longer eligi ble based on patient's age to complete this topic Meningococcal B Vaccine Aged Out No l onger eligible based on patient's age to complete [...] Procedure Name Priority Date/Time Associated Diagnosis Comments RE-EVAL - POST-OP OFFICE VISIT Routine 04/08/2025 8:45 AM EDT PALLIATIVE (EMERGENCY) TREATMENT OF DENTAL PAIN - MINOR PROCEDURE Routine 03/26/2025 2:00 PM EDT CASE PRESENTATION, DETAILED AND EXTENSIVE TREATMENT PLANNING Routine 03/26/2025 2:00 PM EDT 26 EXTRACTION, ERUPTED TOOTH OR EXPOSED ROOT (ELEVATION/FORCEPS REMOVAL) Routine 03/25/2025 11:00 AM EDT 7 EXTRACTION, ERUPTED TOOTH OR EXPOSED ROOT (ELEVATION/FORCEPS REMOVAL) Routine 03/25/2025 11:00 AM EDT 6 EXTRACTION, ERUPTED TOOTH OR EXPOSED ROOT (ELEVATION/FORCEPS REMOVAL) Routine 03/25/2025 11:00 AM EDT 3 EXTRACTION, ERUPTED TOOTH OR EXPOSED ROOT (ELEVATION/FORCEPS REMOVAL) Routine 03/25/2025 11:00 AM EDT BITEWINGS - 4 RADIOGRAPHIC IMAGES Routine 03/17/2024 [...]
--- OUTSIDE RECORDS SUMMARY | 2025-04-29 12:45 | XMS_ITS | Encounter Summary ---
Author Organization [facility] Address [address] [place] [address] Phone Care Team Providers Care Deputy Sheriff Court Services Name Role Phone Marcell Moya MD Primary Care Provider [phone] Encounter Details Date Type Department Care Team (Late st Contact Info) Description 02/18/2021 Orders Only [facility] [address] [place] [address] Melvin Torres MD [address] [place] [address], [address] [address] Nephrotic syndrome with minor glomerular abnormality Social [...] abnormality documented in this encounter Care Teams Deputy Sheriff Court Services Relationship Specialty Start Date End Date Marcell Moya MD [facility] [address] [place] PCP - General Internal Medicine 12/17/20 documented as of this encounter
--- OUTSIDE RECORDS SUMMARY | 2025-04-29 12:45 | XMS_ITS | Encounter Summary ---
Author Organization [employer] Address [address] [facility] 7t [place] [address] Care Team Providers Care Carburetor Specialist Name Role Phone Unavailable Primary Care Provider Unavailabl e Reason for Visit * Reason Onset Date Comments referral olive picker 05/22/2024 Encounter Details Date Type Department Care Team (Late st Contact Info) Description 05/22/2024 Telephone [facility] ADULT DENTAL [address] [place], [place] [id number] Mau Freeman DMD [address] [place] [address] referral olive picker Social History Tobacco Use Types Packs/Day [...] in because will be coming by to olive picker referral scanned in on 05/20 for [facility]. Contacted [facility] front office help and informed patient would be coming by for olive picker DR documented in this encounter Plan of Treatment Upcoming Encounters Date Type Department Care Team (Late st Contact Info) Description 05/06/2025 9:15 AM EDT Office Visit [facility] ADULT DENTAL [address] [place] [address] Vignesh Thompson DMD [address] [place] [address] documented as of this encounter Visit Diagnoses Not on filedocumented in this encounter
--- OUTSIDE RECORDS SUMMARY | 2025-04-29 12:45 | XMS_ITS | Encounter Summary ---
Author Organization [employer] Address [address] [facility] [address] [place] [address] Care Team Providers Care Yard Crane Operator Name Role Phone Unavailable Primary Care Provider Unavailabl e Encounter Details Date Type Department Care Team (Latest Contact Info) Description 06/02/2019 Abstract [facility] [facility] CONVERSIONS Dental, Provider, DDS Social History Tobacco [...] Description 05/06/2025 9:15 AM EDT Office Visit [facility]ULT [facility] [address] [place] [address] Vignesh Thompson, SKINNY [address] [place] [address] documented as of this encounter Visit Diagnoses Not on filedocumented in this encounter
== END 2025-04-29 11:04 | disposition home or self-care (01) ==
LOC: HO.HSM 10:20
PROVIDERS: Visit Provider Psychiatry & Neurology Neurology
DX: G43.909 Migraine, unspecified, not intractable, without status migrainosus (principal)
CPT/HCPCS: 99214

== ENCOUNTER → 2025-04-29 10:20 | Outpatient (BNVA) | payer MEDICARE, SELFPAY | PROVIDERS: Visit Provider Psychiatry & Neurology Neurology | DX: G43.909 Migraine, unspecified, not intractable, without status migrainosus (principal); R42 Dizziness and giddiness; E03.9 Hypothyroidism, unspecified; N04.9 Nephrotic syndrome with unspecified morphologic changes | CPT/HCPCS: 99212 ==

== ENCOUNTER 2025-06-15 16:12 | Outpatient (AMB) | payer MEDICARE, SELFPAY ==
[2025-06-15 16:18] VITALS: BP 130/80; PULSE 69; O2SAT 97; BMI 27.5
--- NOTE | 2025-06-15 16:18 | HO.NEPHOV ---
Vital Signs 06/15/25 16:18 Height 5 ft 9 in Weight 186 lb BMI 27.5 BP 130/80 Blood Pressure Location Lt brachial Position Sitting Pulse 69 Pulse Source Pulse Oximeter Pulse Oximetry (%) 97 Oxygen Delivery Method Room Air Intake Visit Reasons: Self referral : Nephrotic syndrome ,Proteinuria Database Report Writer Required: No Accompanied by: Self / Same As Patient Allergies No Known Allergies Allergy (Mild, Verified 06/15/25 16:20) NOT APPLICABLE Medication List - Last Reconciled 06/15/25 by Ryan Perez MD cholecalciferol (vitamin D3) (Vitamin D3) 50 mcg PO DAILY coQ10 (ubiquinol) 100 mg PO DAILY cyanocobalamin (vitamin B-12) (Vitamin B-12) 500 mcg PO DAILY famotidine 40 mg PO DAILY levothyroxine 75 mcg PO DAILY methadone 85 mg PO DAILY omega 0-ehv-uqu-fish oil 1,000 (120-180) mg (Fish Oil) 1 cap PO DAILY sumatriptan succinate 100 mg orally at onset of migraine. May repeat in 2hrs. Max 2/ 24 hrs PRN; 30 days HPI Comments Details: The patient is a 65-year-old male presenting with nephrotic syndrome . He has had nephrotic syndrome for several years. He has a history of hepatitis-C and treated with Harvoni back in 2019. 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 He was treated with a prednisone. With steroids he went into remission and the urine protein creatinine ratio was down to 0.08. He has a history of here using heroin. He has stopped using it recently. Recently has developed more leg edema in the urine protein creatinine ratio revealed about 5 g of proteinuria. He had a tele visit with Dr. Lemos from [facility] who recommended local follow-up. I believe he was seen by a sales demonstrator locally in the past. However he has not had follow-up and he is unable to contact them for additional appointment hence he has decided to [facility] with [facility] . The patient reports a history of hypertension, with recent blood pressure readings as high as 164/110 mmHg, which is elevated compared to his usual 110/70 mmHg. He has experienced constipation, which has been partially alleviated by a digestive tea, resulting in softer stools recently. The patient also reports swelling in the legs for the past few days. [facility] Medical History (Updated 06/16/25 @ 12:36 by Ryan Perez MD) Nephrotic syndrome Nephrotic syndrome Asthma Substance abuse Depression Thyroiditis Chronic hepatitis C Hypothyroidism BPH (benign prostatic hyperplasia) Elevated PSA Surgical History History of liver biopsy History of biopsy of kidney H/O colonoscopy H/O esophagogastroduodenoscopy History of prostate surgery Social History Household Members: Spouse Patient Tobacco Use Status: Former Tobacco user Tobacco use type: Cigarette Review of Systems Const Denies fever(s) and Denies weight loss Card Denies chest pain Resp Denies cough and Denies hemoptysis GI Denies abdominal pain, Denies diarrhea and Denies nausea Musc Denies back pain Neuro Denies focal weakness Physical Exam Vital Signs: Last Vital Signs Pulse 69 06/15/25 16:18 BP 130/80 06/15/25 16:18 Pulse Ox 97 06/15/25 16:18 Oxygen Delivery Method Room Air 06/15/25 16:18 BMI result Body Mass Index 27.5 Comfortable Neck supple no JVD. Lungs entry equal no rales. Heart S1-S2 heard no gallop or rub. Abdomen soft nontender. Neuro alert awake oriented. No asterixis. Extremities 1 + edema. Results Reviewed Results Reviewed: Kidney biopsy July 2021. 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 Mild arteriosclerosis and arteriolar hyalinosis Chronic parenchymal changes/17% global glomerulosclerosis and 10-20% interstitial fibrosis with tubular atrophy No evidence of immune complex deposition disease Differential includes primary versus secondary FSGS with superimposed minimal change disease April 2023 urine total protein creatinine ratio 0.08 09/04/2024 urine microalbumin creatinine ratio of 5542 EGFR 56 mL/minute serum albumin 3.1 serum electrolytes were normal BUN 26 creatinine 1.2. Nephrology Results: Hgb, (14.0-18.0) 14.4 g/dl 10/03/24 WBC, (4.8-10.8) 4.4 X10*3/uL L 10/03/24 Plt Count, (160-400) 190 X10*3/uL 02/28/25 Assessment & Plan Assessment & Plan (1) Nephrotic syndrome: Comment: Secondary to FSGS primary versus secondary. History of heroin use in the past. Code(s): N04.9 - Nephrotic syndrome with unspecified morphologic changes Category: Medical (2) CKD (chronic kidney disease): Code(s): N18.9 - Chronic kidney disease, unspecified Category: Medical Plan 1. Nephrotic Syndrome - Initiate steroid therapy with prednisone 40 mg daily to manage proteinuria. - Obtain a urine test to assess current protein levels. - Follow-up in 1-2 weeks to monitor response to treatment. 2. Hypertension - Monitor blood pressure regularly to assess control. Stay on low-sodium diet 3,CKD Stage III CKD. Baseline serum creatinine is around 1.2 mg/dL. Goal is to slow the progression of renal disease. Continue to avoid nephrotoxic agents including NSAIDs and IV contrast dyes. Optimize blood pressure. Orders: Orders Comprehensive Met. Panel 1 Week N04.9 - Nephrotic syndrome with unspecified morphologic changes UA and rflx microscopic 1 Week N04.9 - Nephrotic syndrome with unspecified morphologic changes Total Protein Urine Random 1 Week N04.9 - Nephrotic syndrome with unspecified morphologic changes Complement C3 1 Week N04.9 - Nephrotic syndrome with unspecified morphologic changes Complete Blood Count Auto Diff 1 Week N04.9 - Nephrotic syndrome with unspecified morphologic changes Creatinine Urine 1 Week N04.9 - Nephrotic syndrome with unspecified morphologic changes Phospholipase A2 Receptor Pnl 1 Week N04.9 - Nephrotic syndrome with unspecified morphologic changes Complement C4 1 Week N04.9 - Nephrotic syndrome with unspecified morphologic changes Referrals Business Solutions Director Nutrition Referral N04.9 - Nephrotic syndrome with unspecified morphologic changes Medications: New prednisone 40 mg (2 x 20 mg) PO DAILY 30 tabs 1RF Patient Instructions: - Take prednisone 40 mg daily as prescribed. - Get a urine test done today to check protein levels. - Monitor your blood pressure regularly. - Continue using the digestive tea if it helps with constipation. - Avoid taking too much magnesium. - Schedule a follow-up appointment in 1-2 weeks. Scribe Plan - Not visible on output: Patient was informed and verbally consented to the use of an ambient scribe for clinic note documentation during this visit. Coding Level of Care Code New Pt Level 4 (38604) Diagnoses Nephrotic syndrome N04.9 CKD (chronic kidney disease) N18.9
--- OUTSIDE RECORDS SUMMARY | 2025-06-15 17:58 | XMS_ITS | Encounter Summary ---
Author Organization [employer] Address [address] [facility] 7t [place] [address] Care Team Providers Care Signal Manager Name Role Phone Unavailable Primary Care Provider Unavailabl e Encounter Details Date Type Department Care Team (Latest Contact Info) Description 06/02/2019 Abstract [facility] CONVERSIONS Dental, Provider, DDS Social [...]
--- OUTSIDE RECORDS SUMMARY | 2025-06-15 17:58 | XMS_ITS | Clinical Summary ---
Author Organization [employer] Address [address] [facility] 7t [place] [address] Care Team Providers Care Drywall Contractor Name Role Phone Unavailable Primary Care Provider [...] subsequent 01/03 Stage 3 chronic kidney disease (CMS/HCC) 024 Steele esophagus 01/04/2024 Gingival recession, generalized 10/17/2023 [...] Encounters Date Type Department Care Team Description 05/06/2025 Telephone [facility] ADULT DENTAL [address] [place] [address] Vignesh Thompson DMD returned call insurance inactive 04/08/2025 8:45 AM EDT Office Visit [facility] ADULT DENTAL [address] [place] [address] Vignesh Thompson DMD 03/26/2025 2:00 PM EDT Office Visit [facility] ADULT DENTAL [address] [place] [address] Angelo Barrow, DDS 03/25/2025 11:00 AM EDT Office Visit [facility] ADULT DENTAL [address] [place] [address] Vignesh Thompson DMD Asthenopia (Primary Dx); History [...] Mass Index - - Plan of Treatment Health Maintenance Due Date [...] 03/06/2022, Additional history exists COVID-19 Vaccine ( - season) 2025 07/11/2021 Influenza Vaccine (#1) 2025 Dental X-Ray: Full Mouth 04/06/2026 04/05/2023, 04/0 09/2018 Tobacco Screening 04/08/2026 04/08/2025 HIB Vaccines Aged [...] Most Recently Relevant to Health Maintenance Insurance MEDICARE [facility] MEDICAID STAND ADULT
--- OUTSIDE RECORDS SUMMARY | 2025-06-15 17:58 | XMS_ITS | Clinical Summary ---
Author Organization [facility] Address [address] [place] [address] Phone Care Team Providers Care Historical Records Administrator Name Role Phone Marcell Moya MD Primary Care Provider [phone] Allergies No known active allergies Medications SUMAtriptan [...] Medicaid [place] Medicaid [place] Care Teams Historical Records Administrator Relationship Specialty Start Date End Date Marcell Moya MD [address] [place] PCP - General Internal Medicine 12/17/20
--- OUTSIDE RECORDS SUMMARY | 2025-06-15 17:58 | XMS_ITS | Encounter Summary ---
Author Organization [facility] Address [address] [place] [address] Phone Care Team Providers Care Tie Buyer Name Role Phone Marcell Moya MD Primary Care Provider Encounter Details Date Type Department Care Team (Late st Contact Info) Description 02/11/2021 Orders Only [facility] [address] [place] [id number] Melvin Torres MD [address] [place] [address], [address] [address] Nephrotic syndrome with minor glomerular abnormality Social [...] abnormality documented in this encounter Care Teams Tie Buyer Relationship Specialty Start Date End Date Marcell Moya MD [facility] [address] [place] PCP - General Internal Medicine 12/17/20 documented as of this encounter
--- OUTSIDE RECORDS SUMMARY | 2025-06-15 17:58 | XMS_ITS | Encounter Summary ---
Author Organization [employer] Address [address] [facility] 7t [place] [address] Care Team Providers Care Thinner Sprayer Name Role Phone Unavailable Primary Care Provider Unavailabl e Reason for Visit * Reason Onset Date Comments returned call insurance inactive 05/06/2025 Encounter Details Date Type Department Care Team (Late st Contact Info) Description 05/06/2025 Telephone [facility] [address] [place], [place] [phone] Vignesh Thompson, DMD [address] [place], [place] [phone] returned call insurance inactive Social History Tobacco Use Types Packs/Day Years [...] * Telephone Encounter - Sulma Roth - 05/06/2025 9:22 AM EDT Patient called in stating that he contacted and thought he had anew number however provided the same id number that is in his chart that is currently coming up as inactive. Patient stated he will call back for rescheduling when his insurance is squared away. documented in this encounter Plan of Treatment Not on file documented as of this encounter Visit Diagnoses Not on filedocumented in this encounter
--- OUTSIDE RECORDS SUMMARY | 2025-06-15 17:58 | XMS_ITS | Encounter Summary ---
Author Organization [facility] Address [address] [place] [address] Phone Care Team Providers Care Emu Farmer Name Role Phone Marcell Moya MD Primary Care Provider [phone] Encounter Details Date Type Department Care Team (Late st Contact Info) Description 02/18/2021 Orders Only [facility] [address] [place] [phone] Melvin Torres MD [address] [place] [address], [address] [address] Nephrotic syndrome with minor glomerular abnormality Social [...] abnormality documented in this encounter Care Teams Emu Farmer Relationship Specialty Start Date End Date Marcell Moya MD [facility] [address] [place] PCP - General Internal Medicine 12/17/20 documented as of this encounter
--- OUTSIDE RECORDS SUMMARY | 2025-06-15 17:58 | XMS_ITS | Encounter Summary ---
Author Organization [employer] Address [address] [facility] 7t [place] [address] Care Team Providers Care Nipple Machine Operator Name Role Phone Unavailable Primary Care Provider Unavailabl e Reason for Visit * Reason Onset Date Comments referral forklift picker 05/22/2024 Encounter Details Date Type Department Care Team (Late st Contact Info) Description 05/22/2024 Telephone [facility] ADULT DENTAL [address] [place], [place] [phone] Mau Freeman, DMD [address] [place] [address] referral forklift picker Social History Tobacco Use Types Packs/Day [...] in because will be coming by to forklift picker referral scanned in on 05/20 for [facility]. Contacted [facility] senior front end engineer and informed patient would be coming by for forklift picker DR documented in this encounter Plan of Treatment Not on file documented as of this encounter Visit Diagnoses Not on filedocumented in this encounter
--- OUTSIDE RECORDS SUMMARY | 2025-06-15 17:58 | XMS_ITS | Encounter Summary ---
Author Organization [facility] Address [address] [place] [address] Phone Care Team Providers Care Crts Name Role Phone Marcell Moya MD Primary Care Provider [phone] Encounter Details Date Type Department Care Team (Late st Contact Info) Description 02/04/2021 Orders Only [facility] [address] [place] [address] Melvin Torres MD [address] [place] [address], [address] [address] Nephrotic syndrome with minor glomerular abnormality Social [...] abnormality documented in this encounter Care Teams Crts Relationship Specialty Start Date End Date Marcell Moya MD [address] [place] PCP - General Internal Medicine 12/17/20 documented as of this encounter
== END 2025-06-15 16:37 | disposition home or self-care (01) ==
LOC: HO.HKA 16:13
PROVIDERS: Visit Provider Internal Medicine Hypertension Specialist
DX: N04.9 Nephrotic syndrome with unspecified morphologic changes (principal); N18.9 Chronic kidney disease, unspecified
CPT/HCPCS: 99204

== ENCOUNTER → 2025-06-15 16:12 | Outpatient (BNVA) | payer MEDICARE, SELFPAY | PROVIDERS: Visit Provider Internal Medicine Hypertension Specialist | DX: N04.9 Nephrotic syndrome with unspecified morphologic changes (principal); R80.8 Other proteinuria; N18.30 Chronic kidney disease, stage 3 unspecified | CPT/HCPCS: 99202 ==

== ENCOUNTER 2025-06-18 10:35 | Outpatient (AMB) | payer MEDICARE, SELFPAY ==
--- OUTSIDE RECORDS SUMMARY | 2023-12-26 02:30 | XMS_ITS ---
Author Organization [facility] Address [address] [place] [address] Care Team Providers Care Child Care Assistant Name Role Phone Mahnaz Witt CNP Primary Care Provider Un available Dex Garsia Unavailable [phone] REASON FOR VISIT mcfarland's w/ low grade dysplasia Problems Problem Type SNOMED Code ICD Code Onset Dates Problem Status W/U Status Risk Notes Problem Gastro-esophagea l reflux disease without esophagitis (919932059) Gastro-esophage al reflux disease without esophagitis (K21.9) Active confirmed Encounters Encounter Location Date Provider Diagnosis [facility] [place] Outpatient [address] [place] [phone] 12/26/2023 Dex Garsia 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 ; Gastro-esophageal reflux disease without esophagitis K21.9 and Hiatal hernia K44.9 Assessments Encounter Date Diagnosis (ICD Code) Assessment Notes Treatment Notes Treatment Clinical Notes Section Notes 12/26/2023 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 Mcfarland's w/ low grade dysplasia. * Medical History: Objective: * Vitals: Assessment: * Assessment: 1. 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 G bam-esophageal reflux disease without esophagitis - K21.9 3 . H iatal hernia - K44.9 Plan: * Treatment: * Procedure Codes: 4 3239 UPPER GI ENDOSCOPY, BIOPSY, 3126F ESOPH BX RPRT W/DYSPL INFO * * The named appointment provid er may or may not be the originator of this progress note, and it is not deemed complete until electronically signed by the appointment provider. Sign off status: Pending * Provider: Kerry Garsia MD Date: 0 12/26/2023 Generated for Rodney culver/Parvin/Sofi on: 08/18/2024 12:58 PM EST
--- OUTSIDE RECORDS SUMMARY | 2024-05-20 08:00 | XMS_ITS ---
Author Organization [facility] Address [address] [place] [address] Care Team Providers Care Plate Glass Grinder Name Role Phone Kostas Boone MD Primary Care Provider Vanessa Easton Unavailable [phone] Medications Medication SIG (Take, Route, Fr equency, [...] 05/20/2024 Encounters Encounter Location Date Provider Diagnosis [facility] [address] [place] [address] 05/20/2024 Vanessa Hartman Plan Of Treatment No Information Progress Notes * DANUTA KostasDOB:1960 (65 yo M)Acc No.[id number]:05/20/2024 Progress Notes Patient: Kostas NICHOLSON Provider: Candy Hartman DPM :1960 A ge:64 Y S ex:Male Date:05/20/2024 Address:[address], [id number] Pcp:Kostas Boone MD Subjective: * Chief Complaints: [...] enies. C ardiovascular: Pacemaker d enies. M MANAGER MERCHANDISE d enies. W PW d enies. C [...] DPM Date: Generated for Rodney culver/Parvin/Sofi on: 08/18/2024 12:58 PM EST
--- OUTSIDE RECORDS SUMMARY | 2025-01-19 06:30 | XMS_ITS ---
Author Organization [facility] Address [address] [place] [address] Care Team Providers Care Nursing Assoc Name Role Phone Mahnaz Witt CNP Primary Care Provider Un available Dex Garsia Unavailable [phone] REASON FOR VISIT gerd,mcfarland's esophagus w/ low grade dysplasia Encounters Encounter Location Date Provider Diagnosis [facility] [place] Out[place] [address] [place], [place] [phone] 01/19/2025 Dex Garsia 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 ; Gastritis K29.70 and Hiatal hernia K44.9 Assessments Encounter Date Diagnosis (ICD Code) Assessment Notes Treatment Notes Treatment Clinical Notes Section Notes 01/19/2025 Mcfarland esophagus (ICD-10 - K22.70) 01/19/2025 Gastritis (ICD-10 - K29.70) 01/19/2025 Hiatal hernia (ICD-10 - K44.9) Plan Of Treatment No Information Progress Notes * ZACK TIPTONDOB:1960 (65 yo M)Acc No.[id number]:01/19/2025 EGD/MAC Patient: ZACK NICHOLSON Provider: Kerry Garsia MD :1960 A ge:65 Y S ex:Male Date:01/19/2025 Address: [place] [address] [facility] Pcp:Mahnaz Witt CNP Subjective: * Chief Complaints: * 1 . Gerd,mcfarland's esophagus w/ low grade dysplasia. * Medical History: Objective: * Vitals: Assessment: * Assessment: 1. 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 G astritis - K29.70 3 . H iatal hernia - K44.9 Plan: * Treatment: * Procedure Codes: 4 3239 UPPER GI ENDOSCOPY, BIOPSY * * The named appointment provid er may or may not be the originator of this progress note, and it is not deemed complete until electronically signed by the appointment provider. Sign off status: Pending * Provider: Kerry Garsia MD Date: 0 01/19/2025 Generated for Rodney culver/Parvin/Toneyitting on: 1 08/18/2024 12:58 PM EST
--- NOTE | 2025-06-18 10:39 | A.OFFVIS_ITS ---
VS Expanded 06/18/25 10:42 06/18/25 10:53 Height 5 ft 9 in 5 ft 9 in Weight 192 lb 192 lb BMI 28.4 28.4 Intake Visit Reasons: Nephrotic syndrome with unspecified morphologic ch Allergies No Known Allergies Allergy (Mild, Verified 06/15/25 16:20) NOT APPLICABLE Nutrition Presentation Details: Pt presents for MNT for nephrotic syndrome Patient reports doing well some time ago with diet modifications however got discouraged due to extractions and reports getting discouraged and choosing empty calorie foods. Patient on reports interest now in restarting to eat healthier and needs motivated Typical meal oatmeal plain /flavor , water , coffee Lunch and dinner : shepherds pie or chicken noodle soup crackers or pasta with ground beef Food frequency Fruits 0-1 a day Dairy 2-3 a day Vegetables 2 to 3 times a week Protein foods: Typically poultry and beef and sometimes eggs Hydration: Water, coffee, soda BS Monitoring Most Recent Diabetes Results: AST, (5-37) 30 U/L 10/03/24 ALT, (0-40) 17 U/L 10/03/24 Total Protein, (6.5-8.0) 7.8 g/dL 10/03/24 Albumin, (3.5-5.0) 4.3 g/dL 10/03/24 VDI-Ahmwvat-Rp.Jeor Equation Height: 5 ft 9 in Weight: 192 lb Resting Metabolic Rate: 1650.60 Calculated Activity Level: Sedentary Calories Needed to Maintain Weight: 1980.72 Diagnosis Nutrition problem #1: food nutri know defi As related to (etiology) #1: diagnosis As evidenced by (sign/symptom) #1: knowledge deficit of diet [facility] Medical History (Updated 06/24/25 @ 14:53 by Nilsa Hart, RD, LDN) Nephrotic syndrome Nephrotic syndrome Asthma Substance abuse Depression Thyroiditis Chronic hepatitis C Hypothyroidism BPH (benign prostatic hyperplasia) Elevated PSA Surgical History History of liver biopsy History of biopsy of kidney H/O colonoscopy H/O esophagogastroduodenoscopy History of prostate surgery Social History Household Members: Spouse Patient Tobacco Use Status: Former Tobacco user Tobacco use type: Cigarette Assessment & Plan Assessment & Plan (1) Nephrotic syndrome: Code(s): N04.9 - Nephrotic syndrome with unspecified morphologic changes Category: Medical Plan: current wt: 87kg (06/30 ) est kcal needs as per MSJ: 2000 est protein needs as per 1 g/kg BW: 90 est fluid needs as per 30 ml/kg BW: 2600 Recommended fiber > 12 g /day and gradually increase up to 25-28 g /day or as tolerated Nutrition topics discussed : Reviewed (R), Pt verbalized understanding (V) , not applicable (N/A) R, : Healthy Plate Method Concept: R, V, N/A: Carbohydrates: food sources of carbohydrates, relationship of carbohydrates to blood glucose, fatty liver GI health. Recommended total amount of carbohydrates per meals and snack. Differences between simple carbohydrates and complex carbohydrates R, : Lean protein foods including vegan , vegetarian sources of protein. Benefits of protein (including but not limited to healing, nutritional value , benefits in weight loss, glucose control R, V, N/A: Fats : Source of fats, benefits of fats. Difference between saturated and unsaturated fats. Saturated fats and its contribution to inflammation R, V, N/A: Fiber: food sources and role of fiber in the diet (including but not limited to its role as a prebiotic, benefits in constipation, role in IBS , role in glucose control and cholesterol level) R, : Hydration: role of hydration and prevention of dehydration or over hydration. Foods and water content. R, V, N/A: Vitamins and Minerals in foods and supplements R, V, N/A: Interpreting food labels, including serving size, macronutrients, vitamins, minerals, allergens, ingredient list , % daily value Patient Instructions: Choose lean protein foods and low-sodium food options Follow 2000 calorie meal plan see printout as a reference Coding Level of Care Code Nutr Indiv Intake (74794) Diagnoses Nephrotic syndrome N04.9 Time Spent (min) 30
[2025-06-18 10:42] VITALS: BMI 28.4
--- OUTSIDE RECORDS SUMMARY | 2025-06-18 12:58 | XMS_ITS | Encounter Summary ---
Author Organization [employer] Address [address] [facility] 7t [place] [address] Care Team Providers Care Production Underwriter Name Role Phone Unavailable Primary Care Provider Unavailabl e Reason for Visit * Reason Onset Date Comments returned call insurance inactive 05/06/2025 Encounter Details Date Type Department Care Team (Late st Contact Info) Description 05/06/2025 Telephone [facility] [address] [place], [place] [phone] Vignesh Thompson, DMD [address] [place], [place] [phone] returned call insurance inactive Social History Tobacco [...]
--- OUTSIDE RECORDS SUMMARY | 2025-06-18 12:58 | XMS_ITS | Encounter Summary ---
Author Organization [employer] Address [address] [facility] 7t [place] [address] Care Team Providers Care Crm Analyst Name Role Phone Unavailable Primary Care Provider Unavailabl e Encounter Details Date Type Department Care Team (Latest Contact Info) Description 06/02/2019 Abstract [facility] CONVERSIONS Dental, Provider, DDS Social History Tobacco [...]
--- OUTSIDE RECORDS SUMMARY | 2025-06-18 12:58 | XMS_ITS | Patient Health Record ---
Author Organization [facility] [employer] [place] Address [address] [place] [address] Care Team Providers Care Devops Developer Name Role Phone Kostas Boone MD Primary Care Provider Unavaila Vanessa Crooks Unavailable [phone] Allergies No Known Allergies Reason For Referral [...] 09/02/2024 Encounters Encounter Location Date Provider Diagnosis [facility] [address] [place] [address] 09/02/2024 Vanessa Hartman Tinea pedis of both [...] Medicare [employer] [address] [place] [address] [id number] Kostas Dunn Self - patient is the insured Medical (General) History Medical History History ICD Code Broken bones covid-19 Headaches/Migraines Hepatitis Kidney disease Liver disease Lyme disease thyroid Chicken pox Surgical History Surgery Date(Month/Year) colonoscopy wisdom teeth extraction
--- OUTSIDE RECORDS SUMMARY | 2025-06-18 12:58 | XMS_ITS | Encounter Summary ---
Author Organization [employer] Address [address] [facility] 7t [place] [address] Care Team Providers Care Net Web Application Developer Name Role Phone Unavailable Primary Care Provider Unavailabl e Reason for Visit * Reason Onset Date Comments referral moss picker 05/22/2024 Encounter Details Date Type Department Care Team (Late st Contact Info) Description 05/22/2024 Telephone [facility] ADULT DENTAL [address] [place], [place] [phone] Mau Freeman, DMD [address] [place] [address] referral moss picker Social History Tobacco Use Types Packs/Day [...] in because will be coming by to moss picker referral scanned in on 05/20 for [facility]. Contacted [facility] front elevator operator and informed patient would be coming by for moss picker DR documented in this encounter Plan of Treatment Not on file documented as of this encounter Visit Diagnoses Not on filedocumented in this encounter
--- OUTSIDE RECORDS SUMMARY | 2025-06-18 12:58 | XMS_ITS | Clinical Summary ---
Author Organization [employer] Address [address] [facility] [address] [place] [address] Care Team Providers Care Fulling Machine Operator Name Role Phone Unavailable Primary [...] Type Department Care Team Description 05/06/2025 Telephone [facility] ADULT DENTAL [address] [place] [address] Vignesh Thompson DMD returned call insurance inactive 04/08/2025 8:45 AM EDT Office Visit [facility] ADULT D[facility] [address] [place] [address] Vignesh Thompson DMD 03/26/2025 2:00 PM EDT Office Visit [facility] ADULT [facility] [address] [place] [address] Angelo Barrow, DDS 03/25/2025 11:00 AM EDT Office Visit [facility] ADULT [facility] [address] [place] [address] Vignesh Thompson DMD Asthenopia (Primary Dx); History [...] Years (1 of 2 - PCV) 01/12/1979 RSV Patients and Patients Aged 60 years or older (1 - Risk 50-74 years 1-dose series) 01/12/2010 Zoster Vaccines (1 of 2) 01/12/2010 Hepatitis B Vaccines (1 of 3 - Risk 3-dose series) 2020 Dental Prophylaxis 04/19/2024 10/17/2023, 1 , 08/28/2017, Additional history exists Dental Oral Exam 09/18/2024 03/17/2024, , 08/18/2019, Additional history exists Dental X-Ray: Bitewings 03/18/2025 03/17/20 24, 04/05/2023, 03/06/2022, Additional history exists COVID-19 Vaccine ( - 2024- season) 2025 07/11/2021 Influenza Vaccine (#1) 2025 [...] Recently Relevant to Health Maintenance Insurance MEDICARE [facility] MEDICAID STAND ADULT
--- OUTSIDE RECORDS SUMMARY | 2025-06-18 12:59 | XMS_ITS | Encounter Summary ---
Author Organization [facility] Address [address] [place] [address] Phone Care Team Providers Care Remarketing Rep Name Role Phone Marcell Moya MD Primary Care Provider [phone] Encounter Details Date Type Department Care Team (Late st Contact Info) Description 02/11/2021 Orders Only [facility] [address] [place] [phone] Melvin Torres MD [address] [place] [address], [address] [address] Nephrotic syndrome with minor glomerular abnormality Social [...] abnormality documented in this encounter Care Teams Remarketing Rep Relationship Specialty Start Date End Date Marcell Moya MD [facility] [address] [place] PCP - General Internal Medicine 12/17/20 documented as of this encounter
--- OUTSIDE RECORDS SUMMARY | 2025-06-18 12:59 | XMS_ITS | Clinical Summary ---
Author Organization [facility] Address [address] [place] [address] Phone Care Team Providers Care Assorter Laundry Name Role Phone Marcell Moya MD Primary Care Provider [phone] Allergies No known active allergies Medications SUMAtriptan [...] Medicaid [place] Care Teams Assorter Laundry Relationship Specialty Start Date End Date Marcell Moya MD [address] [place] PCP - General Internal Medicine 12/17/20
--- OUTSIDE RECORDS SUMMARY | 2025-06-18 12:59 | XMS_ITS | Encounter Summary ---
Author Organization [facility] Address [address] [place] [address] Phone Care Team Providers Care Curtain Supervisor Name Role Phone Marcell Moya MD Primary Care Provider [phone] Encounter Details Date Type Department Care Team (Late st Contact Info) Description 02/18/2021 Orders Only [facility] [address] [place] [phone] Melvin Torres MD [address] [place] [address], [address] [address] Nephrotic syndrome with minor glomerular abnormality Social [...] abnormality documented in this encounter Care Teams Curtain Supervisor Relationship Specialty Start Date End Date Marcell Moya MD [facility] [address] [place] PCP - General Internal Medicine 12/17/20 documented as of this encounter
--- OUTSIDE RECORDS SUMMARY | 2025-06-18 12:59 | XMS_ITS | Patient Health Record ---
Author Organization [facility] Address [address] [place] [address] Care Team Providers Care Resin Coater Name Role Phone Mahnaz Witt CNPmanjinderazucena Primary Care Provider Un available Garsia Dex Unavailable [phone] Allergies No Known Allergies Results Component Value Reference Range Notes Complete Blood Count Auto Di ff Reviewed date:10/03/2024 05:18:21 PM Interpretation: Performing Lab:[facility], [address] [place] [phone] Notes/Report: White Blood Count 4.4 4.8-10.8 X10*3/uL [...] INR Reviewed date:10/03/2024 05:18:31 PM Interpretation: Performing Lab:[facility], [address] [place] [phone] Notes/Report: Prothrombin Time 11.7 10.9-12.4 SEC INTERNATIONAL [...] Panel Reviewed date:10/03/2024 05:18:43 PM Interpretation: Performing Lab:[facility], [address] [place] [phone] Notes/Report: Bilirubin Total 0.8 0.0-1.0 mg/dL Bilirubin Direct 0.3 0.0-0.5 mg/dL Aspartate Amino Transferase 30 5-37 U/L Alanine Aminotransferase 17 0-40 U/L Total Protein 7.8 6.5-8.0 g/dL Albumin Level 4.3 3.5-5.0 g/dL Alkaline Phosphatase 81 39-117 U/L Alpha Fetoprotein Reviewed date:10/09/2024 10:14:28 AM Interpretation: Performing Lab:[facility], [address] [place] [phone] Notes/Report: Alpha Fetoprotein 0.9 <6.1 ng/mL This test was performed using the Cruzito Fany chemiluminescent method. Values obtained from different assay methods cannot be used interchangeably. AFP levels, regardless of value, should not be interpreted as absolute evidence of the presence or absence of disease. THIS TEST WAS PERFORMED AT: [facility] [address] [place] [phone] ERI WATTS MD Liver Fibrosis Pnl Reviewed date:10/09/2024 10:14:19 AM Interpretation: Performing Lab:[facility], [address] [place] [phone] Notes/Report: Liver Fibrosis Score 0.44 Liver Fibrosis [...] a>0.62 and a<=1.00 : A3 (severe activity) CZK-Exoxo-7-Macroglobulin 430 106-279 mg/dL FIB-Haptoglobin 114 43-212 mg/dL FIB-Apolipoprotein A1 205 94-176 mg/dL FIB-Total Bilirubin 0.6 0.2-1.2 mg/dL FIB-GGT 12 3-70 U/L FIB-ALT 15 9-46 U/L Reference ID [id number] Footnote SEE NOTE The reliability of results [...] The performance characteristics have been determined by [facility]. It has not been cleared or approved by the U.S. Food and Drug Administration. Performance characteristics refer to the analytical performance of the test. [employer], the associated logo, [employer] and all associated [employer] chung are the registered trademarks of [employer]. All third republican chung - (R) and (TM) - are the property of their respective owners. (C) 7367-0141 [employer]. All rights reserved. THIS TEST WAS PERFORMED AT: [employer] [facility] [address] [place] [address] TAMEKA JONES MD,PHD,REENA US abdomen comp w elastograp hy Reviewed date:10/23/2024 11:13:38 AM Interpretation: Performing Lab: Notes/Report: [address] [address] Ultrasound Report Signed Patient: Zack Dunn MR#: [id number] 2 : 1960 Acct:[id number] Age/Sex: 64 / M ADM Date: 10/03/24 Loc: HO.US Attending Dr: Dex Garsia MD Ordering Physician: Dex Garsia MD Date of Service: 10/03/24 Procedure(s): US abdomen comp w elastography Accession Number(s): [id number] cc: Mahnaz Witt [facility]; Dex Garsia MD EXAMINATION: US ABDOMEN COMPLETE [...] 10/06/24 0719 DD/ 1040 TD/TT: 10/03/24 1113 Dry Chain Worker: Pathology (Not yet reviewed by provider) Interpretation: Performing Lab:[facility], [address] [place] [phone] Notes/Report: Reason For Referral No Information Medications Medication SIG (Take, Route, Frequency, Duration) Notes Start Date End Date Status Methadone HCl 64 mg 1 ml mixed with wate r as needed Orally Once a day Active Levothyroxine Sodium 75 MCG 1 capsule Or ally Once a day Active Vitamin S50-Ovgjs Acid 500-400 MCG 1 Orally QD Active CoQ10 50 MG 1 capsule with a beba l Orally Once a day Active Vitamin D 2000 UNIT 2 tablet Orally Once a day Active Famotidine 40 MG TAKE 1 TABLET BY TWICE A DAY; Duration: 90 Active Immunizations Vaccine Route Administration Date Status Comme nts Influenza Unknown 04/17/2019 Refused Influenza Unknown 07/20/2022 Refused Problems Problem Type SNOMED Code ICD Code Onset Dates Problem Status W/U Status Risk Notes Problem Esophageal reflux (811265232) Esophageal reflux (K21.9) Active confirmed Problem Gastro-esophageal reflux disease without esophagitis (134482346) Gastro-esophageal reflux disease without esophagitis (K21.9) Active confirmed Problem Abdominal bloating (487588302) Abdominal bloating (R14.0) Active confirmed Problem Steele's esophagus (714985631) 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) Active confirmed Problem Steele's esophagus (134092119) 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) Active confirmed Problem Gastroesophageal reflux disease without esophagitis (971027494) Gastroesophageal reflux disease without esophagitis (K21.9) Active confirmed Problem Chronic hepatitis C (233033064) Chronic hepatitis C without hepatic coma (B18.2) Active confirmed Problem History of polyp of colon (situation) (585201929) History of colon polyps (Z86.010) Active confirmed Problem Screening for colon cancer (338790316) Screening for colon cancer (Z12.11) Active confirmed Problem Constipation (34196949) Constipation, unspecified constipation type (K59.00) Active confirmed Problem History of adenomatous polyp of colon (049405436) Hx of adenomatous colonic polyps (Z86.010) Active confirmed Problem Right upper quadrant pain (226707709) Abdominal pain, right upper quadrant (R10.11) Active confirmed Problem Steele esophagus (102329026) Steele esophagus (K22.70) Active confirmed Problem History of hepatitis C (56858433625368) History of hepatitis C (Z86.19) Active confirmed Problem Diarrhea (92472313) Diarrhea, unspecified type (R19.7) Active confirmed Problem History of gastrointestinal disease (550192526) History of chronic hepatitis (Z87.19) Active confirmed Problem Irritable bowel syndrome (04079122) Irritable bowel syndrome with both constipation and diarrhea (K58.2) Active confirmed Problem Diverticulosis of colon (291612628) Diverticulosis of colon (K57.30) Active confirmed Problem Family history of celiac disease (112522448) Family history of celiac disease (Z83.79) Active confirmed Problem Steele's esophagus (527167450) Steele''s esophagus without dysplasia (K22.70) Active confirmed Problem Hepatic fibrosis (disorder) (46420676) Liver fibrosis (K74.00) Active confirmed Vital Signs Blood pressure diastolic 11 mm Hg 10/23/2024 Height 68.5 in 10/23/2024 Blood pressure systolic 111 mm Hg 10/23/2024 Weight 176 lbs 10/23/2024 BMI 26.37 kg/m2 10/23/2024 Procedures Procedure Date Ordered Date Performed Result Body Sit e UPPER GI ENDOSCOPY 10/23/2024 N/A Encounters Encounter Location Date Provider Diagnosis [facility] Outpatient [address] [place] [phone] 01/19/2025 Dex Garsia Steele esophagus K22.70 ; Gastritis K29.70 and Hiatal hernia K44.9 [facility] [address] [place] [phone] 10/23/2024 Dex Garsia Liver fibrosis K74.0 0 ; Steele's esophagus with low grade dysplasia K22.710 ; History of hepatitis C Z86.19 ; Screening for colon cancer Z12.11 and Gastro-esophageal reflux disease without esophagitis K21.9 [facility] [address] [place] [phone] 06/18/2025 Dex Garsia [facility] [address] [place] [phone] 06/20/2024 Dex Garsia [facility] [address] [place] [phone] 08/18/2024 Dex Garsia Liver fibrosis K74.0 0 and History of chronic hepatitis Z87.19 [facility] [address] [place] [address] 02/04/2025 eDx Garsia [facility] [address] [place] [address] 06/18/2025 Dex Garsia Assessments Encounter Date Diagnosis (ICD [...] PROFILE 04/17/2019 LIVER PROFILE 11/12/2012 LIVER PROFILE 10/12/2017 LIVER PROFILE 12/01/2021 LIVER PROFILE 04/29/2015 LIVER PROFILE 07/20/2022 LIVER [...] Date MEDICARE OF [place] [address] [place] [address] [id number] ZACK DUNN Self - patient is the insured MEDICAID OF [facility] [address] [place] [address] [phone] [id number] ZACK DUNN Self - patient is the insured Medical [...] Substance abuse-last used Heroin in 2013 Denies [place],DM,CVA,renal disease Asthma Saw Dr. Marcelo in 06/2018 at [facility]--had an EGD with GERD(no esophagitis) and small area of Steele's esopghagus-biopsies negative for dysplasia, and a negative colonoscopy in 06/2018 Nephrotic syndrome - being s een by [facility] Public Relations Coordinator Dr. Ann---s/p renal biopsy in 06/2021 at [facility] with a complication of a hematoma--hospitalized at [facility] Negative screening colonoscopy in March of 2023 [...]
--- OUTSIDE RECORDS SUMMARY | 2025-06-18 12:59 | XMS_ITS | Encounter Summary ---
Author Organization [facility] Address [address] [place] [address] Phone Care Team Providers Care Family Law Specialist Name Role Phone Marcell Moya MD Primary Care Provider [phone] Encounter Details Date Type Department Care Team (Late st Contact Info) Description 02/04/2021 Orders Only [facility] [address] [place] [address] Melvin Torres MD [address] [place] [address], [address] [address] Nephrotic syndrome with minor glomerular abnormality Social [...] documented in this encounter Care Teams Family Law Specialist Relationship Specialty Start Date End Date Marcell Moya MD [address] [place] PCP - General Internal Medicine 12/17/20 documented as of this encounter
[2025-06-24 14:55] VITALS: BMI 28.4
== END 2025-06-18 11:19 | disposition home or self-care (01) ==
LOC: HO.ENCR 10:36
PROVIDERS: Visit Provider Dietitian, Registered
DX: N04.9 Nephrotic syndrome with unspecified morphologic changes (principal)

== ENCOUNTER → 2025-06-18 10:35 | Outpatient (BNVA) | payer MEDICARE, SELFPAY | PROVIDERS: Visit Provider Dietitian, Registered | DX: N04.9 Nephrotic syndrome with unspecified morphologic changes (principal); Z68.28 Body mass index [BMI] 28.0-28.9, adult; Z71.3 Dietary counseling and surveillance | CPT/HCPCS: 97802 ==

== ENCOUNTER 2025-06-24 13:49 | Outpatient (REF) | payer MEDICARE, SELFPAY ==
--- OUTSIDE RECORDS SUMMARY | 2023-12-26 02:30 | XMS_ITS ---
Author Organization [facility] Address [address] [place] [address] Care Team Providers Care Credit Counselor Name Role Phone Mahnaz Witt CNP Primary Care Provider Un available Dex Garsia Unavailable [phone] REASON FOR VISIT mcfarland's w/ low grade dysplasia Problems Problem Type SNOMED Code ICD Code Onset Dates Problem Status W/U Status Risk Notes Problem Gastro-esophagea l reflux disease without esophagitis (636773176) Gastro-esophage al reflux disease without esophagitis (K21.9) Active confirmed Encounters Encounter Location Date Provider Diagnosis [facility] [place] Outpatient [address] [place] [address] [phone] 12/26/2023 Dex Garsia 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 G bam-esophageal reflux disease without esophagitis - K21.9 3 . H iatal hernia - K44.9 Plan: * Procedure Codes: 4 3239 UPPER GI ENDOSCOPY, [id number] ESOPH BX RPRT W/DYSPL INFO Billing Information: * Procedure Codes: 17469 UPPER GI ENDOSCOPY, BIOPSY. 3126F ESOPH BX RPRT W/DYSPL INFO. * The named appointment provid er may or may not be the originator of this progress note, and it is not deemed complete until electronically signed by the appointment provider. Sign off status: Pending * Provider: Kerry Garsia MD Date: 0 12/26/2023 Generated for Rodney culver/Parvin/Toneyitting on: 1 08/25/2024 01:56 AM EST
--- OUTSIDE RECORDS SUMMARY | 2024-05-20 08:00 | XMS_ITS ---
Author Organization [facility] Address [address] [place] [address] Care Team Providers Care Country Director Name Role Phone Kostas Boone MD Primary Care Provider Vanessa Easton Unavailable [phone] Medications Medication SIG (Take, Route, Fr equency, [...] 05/20/2024 Encounters Encounter Location Date Provider Diagnosis [facility] [address] [place] [address] 05/20/2024 Vanessa Hartman Plan Of Treatment No Information Progress Notes * DANUTA KostasDOB:1960 (65 yo M)Acc No.[id number]:05/20/2024 Progress Notes Patient: Kostas NICHOLSON Provider: Candy Hartman DPM :1960 A ge:64 Y S ex:Male Date:05/20/2024 Address:[address], [id number] Pcp:Kostas Boone MD Subjective: * Chief Complaints: [...] enies. C ardiovascular: Pacemaker d enies. M FLAKE MILLER WHEAT AND OATS d enies. W PW d enies. C [...] DPM Date: Generated for Rodney culver/Parvin/Sofi on: 08/25/2024 01:56 AM EST
--- OUTSIDE RECORDS SUMMARY | 2025-01-19 06:30 | XMS_ITS ---
Author Organization [facility] Address [address] [place] [address] Care Team Providers Care Engineer First Assistant Name Role Phone Mahnaz Witt CNP Primary Care Provider Un available Dex Garsia Unavailable [phone] REASON FOR VISIT gerd,mcfarland's esophagus w/ low grade dysplasia Encounters Encounter Location Date Provider Diagnosis [facility] [place] Out[place] [address], [place] [phone] 01/19/2025 Dex Garsia 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 ; Gastritis K29.70 and Hiatal hernia K44.9 Assessments Encounter Date Diagnosis (ICD Code) Assessment Notes Treatment Notes Treatment Clinical Notes Section Notes 01/19/2025 Mcfarland esophagus (ICD-10 - K22.70) 01/19/2025 Gastritis (ICD-10 - K29.70) 01/19/2025 Hiatal hernia (ICD-10 - K44.9) Plan Of Treatment No Information Progress Notes * DANUTAZACKDOB:1960 (65 yo M)Acc No.[id number]:01/19/2025 EGD/MAC Patient: ZACK NICHOLSON Provider: Kerry Garsia MD :1960 A ge:65 Y S ex:Male Date:01/19/2025 Address: [place] [facility] Pcp:Mahnaz Witt CNP Subjective: * Chief Complaints: * G erd,mcfarland's esophagus w/ low grade dysplasia Assessment: * Assessment: 1. 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 G astritis - K29.70 3 . H iatal hernia - K44.9 Plan: * Procedure Codes: 4 3239 UPPER GI ENDOSCOPY, BIOPSY Billing Information: * Procedure Codes: 44353 UPPER GI ENDOSCOPY, BIOPSY. * The named appointment provid er may or may not be the originator of this progress note, and it is not deemed complete until electronically signed by the appointment provider. Sign off status: Pending * Provider: Kerry Garsia MD Date: 0 01/19/2025 Generated for Rodney culver/Parvin/Toneyitting on: 08/25/2024 01:55 AM EST
[2025-06-24 14:09] LABS: MANUAL DIFF FLAG NO
[2025-06-24 15:02] LABS: Hematocrit 40.6 % (42.0-52.0); Hemoglobin 13.4 g/dl (14.0-18.0); Imm Gran Abs Auto 0.10 X10*3/uL (0.00-0.03); Imm Gran Pct Auto 1.0 % (0.0-0.4); Lymphocytes Absolute Auto 0.7 X10*3/uL (1.2-4.9); Mean Corpuscular HGB Conc 33.0 g/dl (31.0-36.0); Mean Corpuscular Hemoglobin 30.5 pg (27.0-33.0); Mean Corpuscular Volume 92.5 fL (80.0-98.0); NRBC Abs Auto 0.000 X10*3/uL (0.0-0.012); NRBC Pct Auto 0.0 /100WBC (0.0-0.2); Platelet Count 216 X10*3/uL (160-400); Red Blood Count 4.39 X10*6/uL (4.60-5.80); White Blood Count 9.9 X10*3/uL (4.8-10.8)
[2025-06-24 15:46] LABS: Appearance Urine Clear; Glucose Urine UA Negative (Negative); PH 5.5 (5.0-9.0); Specific Gravity - Urine 1.020 (1.005-1.025); UMIC TRIGGER UA YES
[2025-06-24 16:13] LABS: Total Protein Urine Random 146 mg/dL (<12)
--- OUTSIDE RECORDS SUMMARY | 2025-06-25 01:56 | XMS_ITS | Encounter Summary ---
Author Organization [employer] Address [address] [facility] [address] [address] [place] [address] Care Team Providers Care Leak Detector Name Role Phone Unavailable Primary Care Provider Unavailabl e Encounter Details Date Type Department Care Team (Latest Contact Info) Description 06/02/2019 Abstract [facility] Dental, Provider, DDS Social History [...]
--- OUTSIDE RECORDS SUMMARY | 2025-06-25 01:56 | XMS_ITS | Clinical Summary ---
Author Organization [employer] Address [address] [facility] [address] [place] [address] Care Team Providers Care Cardiopulmonary Physical Therapist Name Role Phone Unavailable Primary Care Provider [...] Type Department Care Team Description 05/06/2025 Telephone [facility] [address] [place] [address] Vignesh Thompson DMD returned call insurance inactive 04/08/2025 8:45 AM EDT Office Visit [facility] [address] [place] [address] Vignesh Thompson DMD 03/26/2025 2:00 PM EDT Office Visit [facility] [address] [place] [address] Angelo Barrow, DDS 03/25/2025 11:00 AM EDT Office Visit [facility] [address] [place] [address] Vignesh Thompson DMD Asthenopia (Primary Dx); History [...] Recently Relevant to Health Maintenance Insurance MEDICARE [facility] MEDICAID STAND ADULT
--- OUTSIDE RECORDS SUMMARY | 2025-06-25 01:56 | XMS_ITS | Patient Health Record ---
Author Organization [facility] [place] Address [address] [place] [address] Care Team Providers Care Systems Auditor Name Role Phone Kostas Boone MD Primary Care Provider Unavaila Vanessa Crooks Unavailable [phone] Allergies No Known Allergies Reason For Referral [...] 09/02/2024 Encounters Encounter Location Date Provider Diagnosis [facility] [address] [place] [address] 09/02/2024 Vanessa Hartman Tinea pedis of both [...] Inc [address] [place] [address] [id number] Kostas Dunn Self - patient is the insured Medical (General) History Medical History History ICD Code Broken bones covid-19 Headaches/Migraines Hepatitis Kidney disease Liver disease Lyme disease thyroid Chicken pox Surgical History Surgery Date(Month/Year) colonoscopy wisdom teeth extraction
--- OUTSIDE RECORDS SUMMARY | 2025-06-25 01:56 | XMS_ITS | Encounter Summary ---
Author Organization [employer] Address [address] [facility] [address] [place] [address] Care Team Providers Care Plumber And Tinner Name Role Phone Unavailable Primary Care Provider Unavailabl e Reason for Visit * Reason Onset Date Comments referral orange picking supervisor 05/22/2024 Encounter Details Date Type Department Care Team (Late st Contact Info) Description 05/22/2024 Telephone [facility] ADULT [facility] [address] [place], [place] [phone] Mau Freeman, DMD [address] [place] [address] referral orange picking supervisor Social History Tobacco Use Types Packs/Day Years [...] in because will be coming by to orange picking supervisor referral scanned in on 05/20 for On License Of [facility]. Contacted [facility] front desk receptionist and informed patient would be coming by for orange picking supervisor DR documented in this encounter Plan of Treatment Not on file documented as of this encounter Visit Diagnoses Not on filedocumented in this encounter
--- OUTSIDE RECORDS SUMMARY | 2025-06-25 01:56 | XMS_ITS | Patient Health Record ---
Author Organization [facility] Address [address] [place] [address] Care Team Providers Care Electronic Design Engineer Name Role Phone Mahnaz Witt CNP Primary Care Provider Un available Ady Dex Unavailable [phone] Allergies No Known Allergies Results Component Value Reference Range Flag Notes Complete Blood Count Auto Di ff Reviewed date:10/03/2024 05:18:21 PM Interpretation: Performing Lab:[facility], [address] [place] [phone] Notes/Report: White Blood Count 4.4 4.8-10.8 X10*3/uL L Red Blood Count 4.82 4.60-5.80 X10*6/uL N Hemoglobin 14.4 14.0-18.0 g/dl N Hematocrit 43.6 42.0-52.0 % N Mean Corpuscular Volume 90.5 80.0-98.0 fL N Mean Corpuscular Hemoglobin 29.9 27.0-33.0 pg N Mean Corpuscular HGB Conc 33.0 31.0-36.0 g/dl N Red Cell Distribution Width 12.3 11.0-16.0 % N Platelet Count 190 160-400 X10*3/uL N Mean Platelet Volume 10.0 9.4-12.4 fL N Neutrophils Percent Auto 56.4 45-73 % N Imm Gran Pct Auto 0.2 0.0-0.4 % N Lymphocytes Percent Auto 29.1 20-40 % N Monocytes Percent Auto 8.6 2-11 % N Eosinophils Percent Auto 5.0 0-4 % H Basophils Percent Auto 0.7 0-2 % N NRBC Pct Auto 0.0 0.0-0.2 /100WBC N Neutrophils Absolute Auto 2.5 2.0-8.3 x10*3/uL N Imm Gran Abs Auto 0.01 0.00-0.03 X10*3/uL N Lymphocytes Absolute Auto 1.3 1.2-4.9 X10*3/uL N Monocytes Absolute Auto 0.4 0.1-1.2 X10*3/uL N Eosinophils Absolute Auto 0.2 0.0-0.4 X10*3/uL N Basophils Absolute Auto 0.0 0.0-0.2 X10*3/uL N NRBC Abs Auto 0.000 0.0-0.012 X10*3/uL N Prothrombin Time INR Reviewed date:10/03/2024 05:18:31 PM Interpretation: Performing Lab:[address] [phone] Notes/Report: Prothrombin Time 11.7 10.9-12.4 SEC N INTERNATIONAL NORM RATIO 1.0 0.9-1.1 N INTERNATIONAL NORMALIZED RATIO (INR) REFERENCE RANGES Reference [...] Panel Reviewed date:10/03/2024 05:18:43 PM Interpretation: Performing Lab:[address] [address] Notes/Report: Bilirubin Total 0.8 0.0-1.0 mg/dL N Bilirubin Direct 0.3 0.0-0.5 mg/dL N Aspartate Amino Transferase 30 5-37 U/L N Alanine Aminotransferase 17 0-40 U/L N Total Protein 7.8 6.5-8.0 g/dL N Albumin Level 4.3 3.5-5.0 g/dL N Alkaline Phosphatase 81 39-117 U/L N Alpha Fetoprotein Reviewed date:10/09/2024 10:14:28 AM Interpretation: Performing Lab:[address] [address] Notes/Report: Alpha Fetoprotein 0.9 <6.1 ng/mL N This test was performed using the Cruzito Mico chemiluminescent method. Values obtained from different assay methods cannot be used interchangeably. AFP levels, regardless of value, should not be interpreted as absolute evidence of the presence or absence of disease. THIS TEST WAS PERFORMED AT: [facility] [address] [place] [phone] ERI WATTS MD Liver Fibrosis Pnl Reviewed date:10/09/2024 10:14:19 AM Interpretation: Performing Lab:[facility], [address] [place] [phone] Notes/Report: Liver Fibrosis Score 0.44 Liver Fibrosis [...] a>0.62 and a<=1.00 : A3 (severe activity) NPR-Hxxds-1-Macroglobulin 430 106-279 mg/dL A FIB-Haptoglobin 114 43-212 mg/dL FIB-Apolipoprotein A1 205 94-176 mg/dL A FIB-Total Bilirubin 0.6 0.2-1.2 mg/dL FIB-GGT 12 3-70 U/L FIB-ALT 15 9-46 U/L Reference ID [id number] Footnote SEE NOTE The reliability of results [...] The performance characteristics have been determined by [facility]. It has not been cleared or approved by the U.S. Food and Drug Administration. Performance characteristics refer to the analytical performance of the test. [employer] the associated logo, [employer] and all associated [employer] ch[employer] are the registered trademarks of [employer]. All third libertarian chung - (R) and (TM) - are the property of their respective owners. (C) 8860-8018 [employer]. All rights reserved. THIS TEST WAS PERFORMED AT: [facility] [address] [place] [address] TAMEKA JONES MD,PHD,REENA US abdomen comp w elastograp hy Reviewed date:10/23/2024 11:13:38 AM Interpretation: Performing Lab: Notes/Report: [address] [address] Ultrasound Report Signed Patient: Zack Dunn MR#: [id number] 2 : 1960 Acct:[id number] Age/Sex: 64 / M ADM Date: 10/03/24 Loc: HO.US Attending Dr: Dex Garsia MD Ordering Physician: Dex Garsia MD Date of Service: 10/03/24 Procedure(s): US abdomen comp w elastography Accession Number(s): [id number] cc: EduarMahnaz M [facility]-; Dex Garsia MD EXAMINATION: US ABDOMEN COMPLETE [...] 10/06/24 0719 DD/ 1040 TD/TT: 10/03/24 1113 Card Decorator: Pathology Reviewed date:06/18/2025 03:25:42 PM Interpretation: Performing Lab:[facility], [address] [place] [address], [place] [address] Notes/Report: Reason For Referral No Information Medications Medication SIG (Take, Route, Frequency, Duration) Notes Start Date End Date Status Methadone HCl 64 mg Concentrate 1 ml mixed with water as needed Orally Once a day Active Levothyroxine Sodium 75 MCG Capsule 1 capsule Orally Once a day Active Vitamin N59-Giemu Acid 500-400 MCG Tablet 1 Orally QD Active CoQ10 50 MG Capsule 1 capsule with a beba l Orally Once a day Active Vitamin D 2000 UNIT Tablet 2 tablet Oral ly Once a day Active Famotidine 40 MG Tablet TAKE 1 TABLET BY MOUTH TWICE A DAY twice a day; Duration: 90 days Active Immunizations Vaccine Route Administration Date Status Comme nts Influenza Unknown 04/17/2019 Refused Influenza Unknown 07/20/2022 Refused Social History Social History Additional Details Category Social Info Options Details Miscellaneous: Marital status: --w kelly has a history of breast cancer Occupation: unemployed Section Notes: Nonsmoker and no alcohol Substance abuse as above Nonsmoker and no alcohol Substance abuse as above-has not used drugs in > 1 year Nonsmoker and no alcohol Substance abuse as above-has not used drugs since 2011 Nonsmoker and no alcohol Substance abuse--he reports that he last used drugs in 2013. Nonsmoker and no alcohol Substance abuse--he reports that he last used drugs in 2013. Nonsmoker and no alcohol Substance abuse--he reports that he last used drugs in 2013. Nonsmoker and no alcohol Substance abuse--he reports that he last used drugs in 2013. Nonsmoker and no alcohol Substance abuse--he reports that he last used drugs in 2014. Nonsmoker and no alcohol Substance abuse--he reports that he last used drugs in 2013. Nonsmoker and no alcohol Substance abuse--he reports that he last used drugs in 2014. Nonsmoker and no alcohol Substance abuse--he reports that he last used drugs in 2014. Nonsmoker and no alcohol Substance abuse--he reports that he last used drugs in 2014. Nonsmoker and no alcohol Substance abuse--he reports that he last used drugs in 2014. Nonsmoker and no alcohol Substance abuse--he reports that he last used drugs in 2013. Nonsmoker and no alcohol Substance abuse--he reports that he last used drugs in 2014. Nonsmoker and no alcohol Substance abuse--he reports that he last used drugs in 2013. 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) Active confirmed Problem Gastroesophageal reflux disease without esophagitis (641166242) Gastroesophageal reflux disease without esophagitis (K21.9) Active confirmed Problem Chronic hepatitis C (382996676) Chronic hepatitis C without hepatic coma (B18.2) Active confirmed Problem History of polyp of colon (situation) (004274379) History of colon polyps (Z86.010) Active confirmed Problem Screening for colon cancer (682743006) Screening for colon cancer (Z12.11) Active confirmed Problem Constipation (48714095) Constipation, unspecified constipation type (K59.00) Active confirmed Problem History of adenomatous polyp of colon (675251122) Hx of adenomatous colonic polyps (Z86.010) Active confirmed Problem Right upper quadrant pain (611853578) Abdominal pain, right upper quadrant (R10.11) Active confirmed Problem Steele esophagus (854308447) Steele esophagus (K22.70) Active confirmed Problem History of hepatitis C (01993254086162) History of hepatitis C (Z86.19) Active confirmed Problem Diarrhea (61119631) Diarrhea, unspecified type (R19.7) Active confirmed Problem History of gastrointestinal disease (025025301) History of chronic hepatitis (Z87.19) Active confirmed Problem Irritable bowel syndrome (04793818) Irritable bowel syndrome with both constipation and diarrhea (K58.2) Active confirmed Problem Diverticulosis of colon (783587333) Diverticulosis of colon (K57.30) Active confirmed Problem Family history of celiac disease (490861580) Family history of celiac disease (Z83.79) Active confirmed Problem Steele's esophagus (724153293) Steele''s esophagus without dysplasia (K22.70) Active confirmed Problem Hepatic fibrosis (disorder) (17435278) Liver fibrosis (K74.00) Active confirmed Vital Signs Blood pressure diastolic 11 mm Hg 10/23/2024 Height 68.5 in 10/23/2024 Blood pressure systolic 111 mm Hg 10/23/2024 Weight 176 lbs 10/23/2024 BMI 26.37 kg/m2 10/23/2024 Procedures Procedure Date Ordered Date Performed Result Body Sit e UPPER GI ENDOSCOPY 10/23/2024 N/A Encounters Encounter Location Date Provider Diagnosis [facility] Outpatient [address] [place] [phone] 01/19/2025 Dex Garsia Steele esophagus K22.70 ; Gastritis K29.70 and Hiatal hernia K44.9 [facility] [address] [place] [phone] 10/23/2024 Dex Garsia Liver fibrosis K74.0 0 ; Steele's esophagus with low grade dysplasia K22.710 ; History of hepatitis C Z86.19 ; Screening for colon cancer Z12.11 and Gastro-esophageal reflux disease without esophagitis K21.9 [facility] [address] [place] [phone] 06/24/2025 Dex Garsia [facility] [address] [place] [phone] 08/18/2024 Dex Garsia Liver fibrosis K74.0 0 and History of chronic hepatitis Z87.19 [facility] [address] [place] [phone] 02/04/2025 Dex Garsia [facility] [address] [place] [phone] 06/18/2025 Dex Garsia [facility] [address] [place] [phone] 06/18/2025 Dex Garsia Assessments Encounter Date Diagnosis (ICD Code) Assessment Notes Treatment Notes Treatment Clinical Notes Section Notes 01/19/2025 Gastritis (ICD-10 - K29.70) 01/19/2025 Steele esophagus (ICD-10 - K22.70) 10/23/2024 Steele's esophagus with low grade dysplasia (ICD-10 - K22.710) .Overall, Bill appears to be doing well at the [...] Z87.19) 08/18/2024 Liver fibrosis (ICD-10 - K74.00) 10/23/2024 History of hepatitis C (ICD-10 - [...] to keep you advised of his progress. 01/19/2025 Hiatal hernia (ICD-10 - K44.9) 10/23/2024 Screening for colon cancer (ICD-10 - [...] Date UPPER GI ENDOSCOPY 10/23/2024 LIVER PROFILE 09/06/2023 LIVER PROFILE 12/01/2021 LIVER PROFILE 07/20/2022 LIVER PROFILE 11/12/2012 LIVER PROFILE 09/24/2014 LIVER PROFILE 04/29/2015 LIVER PROFILE 04/17/2019 LIVER PROFILE 08/21/2014 LIVER PROFILE 10/13/2014 LIVER PROFILE 12/16/2014 LIVER PROFILE 10/12/2017 LIVER PROFILE 08/18/2024 AMYLASE 10/12/2017 LIPASE 10/12/2017 T4 (THYROXINE) 12/01/2014 TSH (THYROID STIMULATING HORMONE) 2014 CBC w DIFF 09/06/2023 CBC w DIFF 10/13/2014 CBC w DIFF 12/16/2014 CBC w DIFF 10/12/2017 CBC w DIFF 08/18/2024 CBC w DIFF 04/17/2019 CBC w DIFF 11/12/2012 CBC w DIFF 04/29/2015 CBC w DIFF 09/24/2014 CBC w DIFF 07/20/2022 CBC w DIFF 08/21/2014 PROTHROMBIN TIME (PT, INR) 07/20/2022 PROTHROMBIN TIME (PT, INR) 04/17/2019 CLOSTRIDIUM DIFF TOXIN A&B (C DIFF) 11/04 ALPHA-FETOPROTEIN,TUMOR MARKER 5 ALPHA-FETOPROTEIN,TUMOR MARKER 8 ALPHA-FETOPROTEIN,TUMOR MARKER 5 ALPHA-FETOPROTEIN,TUMOR MARKER 9 ALPHA-FETOPROTEIN,TUMOR MARKER 3 ALPHA-FETOPROTEIN,TUMOR MARKER 2 ALPHA-FETOPROTEIN,TUMOR MARKER 2 ALPHA-FETOPROTEIN,TUMOR MARKER 4 CELIAC PANEL #10 09/06/2023 HEPATITIS C VIRAL LOAD 09/06/2023 HEPATITIS C VIRAL LOAD 08/21/2014 HEPATITIS C VIRAL LOAD 09/24/2014 HEPATITIS C VIRAL LOAD 04/29/2015 HEPATITIS C VIRAL LOAD 12/01/2021 HEPATITIS C VIRAL LOAD 04/17/2019 HEPATITIS C VIRAL LOAD 10/13/2014 HEPATITIS C VIRAL LOAD 12/16/2014 HEPATITIS C VIRAL LOAD 10/12/2017 GIARDIA AG, STOOL EIA 11/13/2017 OVA & PARASITES (O&P) 11/13/2017 CULTURE, STOOL 11/13/2017 US ABD 04/17/2019 US ABD 07/20/2022 FIBROSPECT SM II 08/21/2014 HCV LIVER FIBROSIS, FIBRO TEST 2 HCV LIVER FIBROSIS, FIBRO TEST 5 STOOL WBC 11/13/2017 US ABDOMEN COMP WITH ELASTOGRAPHY 2021 Prothrombin Time INR 09/06/2023 Prothrombin Time INR 08/18/2024 Liver Fibrosis Pnl 07/20/2022 Liver Fibrosis Pnl 09/06/2023 US abdomen comp w elastography 5 Future Test Test Name Order Date COLONOSCOPY 06/24/2013 UPPER GI ENDOSCOPY 12/21/2022 COLONOSCOPY 12/21/2022 UPPER GI ENDOSCOPY 09/06/2023 US abdomen comp w elastography 4 Insurance Providers Payer Name Payer Address Payer Phone Subscriber Number Group Number Insured Name Patient Relationship to Insured Coverage Start Date Coverage End Date MEDICARE OF [place] [address] [place] [id number] [phone] [id number] DANUTA ZACK Self - patient is the insured [facility] [address] [place] [phone] [id number] DANUTA ZACK Self - patient is the insured Medical [...] Substance abuse-last used Heroin in 2013 Denies [place],DM,CVA,renal disease Asthma Saw Dr. Marcelo in 06/2018 at [facility]--had an EGD with GERD(no esophagitis) and small area of Steele's esopghagus-biopsies negative for dysplasia, and a negative colonoscopy in 06/2018 Nephrotic syndrome - being s een by [facility] Consulting Engineer Dr. Ann---s/p renal biopsy in 06/2021 at [facility] with a complication of a hematoma--hospitalized at [facility] Negative screening colonoscopy in March of 2023 [...]
--- OUTSIDE RECORDS SUMMARY | 2025-06-25 01:56 | XMS_ITS | Encounter Summary ---
Author Organization [employer] Address [address] [place] [address] Care Team Providers Care Water Service Dispatcher Name Role Phone Unavailable Primary Care Provider Unavailabl e Reason for Visit * Reason Onset Date Comments returned call insurance inactive 05/06/2025 Encounter Details Date Type Department Care Team (Late st Contact Info) Description 05/06/2025 Telephone C [facility] [address] [place], [place] [phone] Vignesh Thompson, DMD [address] [place] [address] returned call insurance inactive Social History Tobacco [...]
--- OUTSIDE RECORDS SUMMARY | 2025-06-25 01:57 | XMS_ITS | Encounter Summary ---
Author Organization [facility] Address [address] [place] [address] Phone Care Team Providers Care It Sales Representative Name Role Phone Marcell Moya MD Primary Care Provider [phone] Encounter Details Date Type Department Care Team (Late st Contact Info) Description 02/11/2021 Orders Only [facility] [address] [place] [phone] Melvin Torres MD [address] [place] [address], [address] [address] Nephrotic syndrome with minor glomerular abnormality Social [...] abnormality documented in this encounter Care Teams It Sales Representative Relationship Specialty Start Date End Date Marcell Moya MD [facility] [address] [place] PCP - General Internal Medicine 12/17/20 documented as of this encounter
--- OUTSIDE RECORDS SUMMARY | 2025-06-25 01:57 | XMS_ITS | Encounter Summary ---
Author Organization [facility] Address [address] [place] [address] Phone Care Team Providers Care Oil Well Services Dispatcher Name Role Phone Marcell Moya MD Primary Care Provider Encounter Details Date Type Department Care Team (Late st Contact Info) Description 02/18/2021 Orders Only [facility] [address] [place] [phone] Melvin Torres MD [address] [place] [address], [address] [phone] Nephrotic syndrome with minor glomerular abnormality Social [...] abnormality documented in this encounter Care Teams Oil Well Services Dispatcher Relationship Specialty Start Date End Date Marcell Moya MD [facility] [place] [place] PCP - General Internal Medicine 12/17/20 documented as of this encounter
--- OUTSIDE RECORDS SUMMARY | 2025-06-25 01:57 | XMS_ITS | Clinical Summary ---
Author Organization [facility] Address [address] [facility] [address] [place] [address] Phone Care Team Providers Care Adult Secondary Education Instructor Name Role Phone Marcell Moya MD Primary Care Provider Allergies No known active allergies Medications SUMAtriptan [...] Medicaid [place] Medicare [place] Care Teams Adult Secondary Education Instructor Relationship Specialty Start Date End Date Marcell Moya MD [address] [place] PCP - General Internal Medicine 12/17/20
--- OUTSIDE RECORDS SUMMARY | 2025-06-25 01:57 | XMS_ITS | Encounter Summary ---
Author Organization [facility] Address [address] [place] [address] Phone Care Team Providers Care Ammonia Operator Name Role Phone Marcell Moya MD Primary Care Provider Encounter Details Date Type Department Care Team (Late st Contact Info) Description 02/04/2021 Orders Only [facility] [address] [place] [address] Melvin Torres MD [address] [place] [address], [address] [phone] Nephrotic syndrome with minor glomerular abnormality Social [...] abnormality documented in this encounter Care Teams Ammonia Operator Relationship Specialty Start Date End Date Marcell Moya MD [address] [place] PCP - General Internal Medicine 12/17/20 documented as of this encounter
[2025-06-30 22:18] LABS: Phospholipase A2 IgG ELISA <4 RU/mL; Phospholipase A2 IgG IFA NEGATIVE (NEGATIVE)
== END 2025-06-24 13:50 | disposition home or self-care (01) ==
LOC: HO.LAB 13:49
PROVIDERS: Visit Provider Internal Medicine Hypertension Specialist
DX: N04.9 Nephrotic syndrome with unspecified morphologic changes (principal)
CPT/HCPCS: 36415; 81001; 82570; 83520; 84156; 85025; 86160; 86255

== ENCOUNTER 2025-06-29 13:51 | Outpatient (AMB) | payer MEDICARE, SELFPAY ==
[2025-06-29 14:02] VITALS: BP 140/80; PULSE 71; O2SAT 97; BMI 28.2
--- NOTE | 2025-06-29 14:02 | HO.NEPHOV_ITS ---
Vital Signs 06/29/25 14:02 Height 5 ft 9 in Weight 191 lb BMI 28.2 BP 140/80 H Blood Pressure Location Rt brachial Position Sitting Pulse 71 Pulse Source Pulse Oximeter Pulse Oximetry (%) 97 Oxygen Delivery Method Room Air Intake Visit Reasons: 2 wks f/u w/ labs Foundry Molder Required: No Accompanied by: Self / Same As Patient Allergies No Known Allergies Allergy (Mild, Verified 06/29/25 14:02) NOT APPLICABLE Medication List - Last Reconciled 06/29/25 by Ryan Perez MD cholecalciferol (vitamin D3) (Vitamin D3) 50 mcg PO DAILY coQ10 (ubiquinol) 100 mg PO DAILY cyanocobalamin (vitamin B-12) (Vitamin B-12) 500 mcg PO DAILY famotidine 40 mg PO DAILY levothyroxine 75 mcg PO DAILY methadone 85 mg PO DAILY omega 2-olh-rib-fish oil 1,000 (120-180) mg (Fish Oil) 1 cap PO DAILY prednisone 40 mg (2 x 20 mg) PO DAILY sumatriptan succinate 100 mg orally at onset of migraine. May repeat in 2hrs. Max 2/ 24 hrs PRN; 30 days HPI Comments Details: The patient is a 65-year-old male presenting with nephrotic syndrome . He has had nephrotic syndrome for several years. He has a history of hepatitis-C and treated with Harvoni back in 2019. 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 He was treated with a prednisone. With steroids he went into remission and the urine protein creatinine ratio was down to 0.08. He has a history of here using heroin. He has stopped using it recently. Recently has developed more leg edema in the urine protein creatinine ratio revealed about 5 g of proteinuria. He had a tele visit with Dr. Lemos from [facility] who recommended local follow-up. I believe he was seen by a technical training specialist locally in the past. However he has not had follow-up and he is unable to contact them for additional appointment hence he has decided to [facility] with [facility] . The patient reports a history of hypertension, with recent blood pressure readings as high as 164/110 mmHg, which is elevated compared to his usual 110/70 mmHg. He has experienced constipation, which has been partially alleviated by a digestive tea, resulting in softer stools recently. The patient also reports sw elling in the legs for the past few days. 06/29/25 On Prednisone 40 mg QD x 2 weeks- NO response yet Still has edema PFSH Medical History (Updated 06/24/25 @ 14:[address], LDN) Nephrotic syndrome Nephrotic syndrome Asthma Substance abuse Depression Thyroiditis Chronic hepatitis C Hypothyroidism BPH (benign prostatic hyperplasia) Elevated PSA Surgical History History of liver biopsy History of biopsy of kidney H/O colonoscopy H/O esophagogastroduodenoscopy History of prostate surgery Social History Household Members: Spouse Patient Tobacco Use Status: Former Tobacco user Tobacco use type: Cigarette Physical Exam Vital Signs: Last Vital Signs Pulse 71 06/29/25 14:02 BP 140/80 H 06/29/25 14:02 Pulse Ox 97 06/29/25 14:02 Oxygen Delivery Method Room Air 06/29/25 14:02 BMI result Body Mass Index 28.2 Comfortable Neck supple no JVD. Lungs entry equal no rales. Heart S1-S2 heard no gallop or rub. Abdomen soft nontender. Neuro alert awake oriented. No asterixis. Extremities 1 + edema. Results Reviewed Nephrology Results: Hgb, (14.0-18.0) 13.4 g/dl L 06/24/25 WBC, (4.8-10.8) 9.9 X10*3/uL 06/24/25 Plt Count, (160-400) 216 X10*3/uL 06/24/25 Urine Protein, (Neg-Trace) 100 (2+) mg/dL H 06/24/25 Urine Creatinine 173.81 mg/dL 06/24/25 Assessment & Plan Assessment & Plan (1) Nephrotic syndrome: Code(s): N04.9 - Nephrotic syndrome with unspecified morphologic changes Category: Medical (2) CKD (chronic kidney disease): Code(s): N18.9 - Chronic kidney disease, unspecified Category: Medical Plan 1. Nephrotic Syndrome Due to FSGS - Initiated steroid therapy with prednisone 40 mg daily to manage proteinuria. - Follow-up in 1-2 weeks to monitor response to treatment. May need further immunosppression 2. Hypertension - Monitor blood pressure regularly to assess control. Stay on low-sodium diet 3,CKD Stage III CKD. Baseline serum creatinine is around 1.2 mg/dL. Goal is to slow the progression of renal disease. Continue to avoid nephrotoxic agents including NSAIDs and IV contrast dyes. Optimize blood pressure. Add Bumex 1 mg QD due to significant edema Check BMP in 4 days Orders: Orders Basic Metabolic Panel 4 Days N18.9 - Chronic kidney disease, unspecified Medications: New bumetanide 1 mg PO DAILY 30 tabs 1RF Scribe Plan - Not visible on output: Patient was informed and verbally consented to the use of an ambient scribe for clinic note documentation during this visit. Coding Level of Care Code Est Pt Level 4 (68429) Diagnoses Nephrotic syndrome N04.9 CKD (chronic kidney disease) N18.9
--- OUTSIDE RECORDS SUMMARY | 2025-06-29 18:46 | XMS_ITS | Clinical Summary ---
Author Organization [employer] Address [address] [facility] [address] [place] [address] Care Team Providers Care Printed Circuit Board Drafter Name Role Phone Unavailable Primary Care Provider [...] Type Department Care Team Description 05/06/2025 Telephone [facility]ULT D[facility]AL [address] [place] [address] Vignesh Thompson DMD returned call insurance inactive 04/08/2025 8:45 AM EDT Office Visit [facility] [address] [place] [address] Vignesh Thompson DMD from Last 3 Months Social History [...] OFFICE VISIT Routine 04/08/2025 8:45 AM EDT BITEWINGS - 4 RADIOGRAPHIC IMAGES Routine 03/17/2024 2:30 PM EDT PERIODIC ORAL EVALUATION - ESTABLISHED PATIENT Routine 03/17/2024 2:30 PM EDT PROPHYLAXIS - ADULT Routine 10/17/2023 1 0:00 AM EDT Dental plaque INTRAORAL - COMPLETE SERIES OF RADIOGRAPHIC IMAGES Routine 04/05/2023 10:00 AM EDT from Last 3 Months or Most Recently Relevant to Health Maintenance Insurance [place] [phone]
--- OUTSIDE RECORDS SUMMARY | 2025-06-29 18:46 | XMS_ITS | Encounter Summary ---
Author Organization [employer] Address [address] [facility] [address] [place] [address] Care Team Providers Care Guest House Manager Name Role Phone Unavailable Primary Care Provider Unavailabl e Reason for Visit * Reason Onset Date Comments returned call insurance inactive 05/06/2025 Encounter Details Date Type Department Care Team (Late st Contact Info) Description 05/06/2025 Telephone [facility] [address] [place], [place] [phone] Vignesh Thompson, DMD [address] [place], [place] [phone] returned call insurance inactive Social History Tobacco [...]
--- OUTSIDE RECORDS SUMMARY | 2025-06-29 18:46 | XMS_ITS | Encounter Summary ---
Author Organization [employer] Address [address] [facility] [address] [place] [address] Care Team Providers Care Heavy Equipment Operator/Paver Name Role Phone Unavailable Primary Care Provider Unavailabl e Encounter Details Date Type Department Care Team (Latest Contact Info) Description 06/02/2019 Abstract [facility] CONVERSIONS Dental, Provider, DDS Social History [...]
--- OUTSIDE RECORDS SUMMARY | 2025-06-29 18:47 | XMS_ITS | Encounter Summary ---
Author Organization [employer] Address [address] [facility] [address] [place] [address] Care Team Providers Care Oil Extractor Name Role Phone Unavailable Primary Care Provider Unavailabl e Reason for Visit * Reason Onset Date Comments referral picker operator 05/22/2024 Encounter Details Date Type Department Care Team (Late st Contact Info) Description 05/22/2024 Telephone [facility] ADULT DENTAL [address], [place] [phone] Mau Freeman, DMD [address] [place] [address] referral picker operator Social History Tobacco Use Types [...] in because will be coming by to picker operator referral scanned in on 05/20 for [facility]. Contacted [facility] front end wheel loader operator and informed patient would be coming by for picker operator DR documented in this encounter Plan of Treatment Not on file documented as of this encounter Visit Diagnoses Not on filedocumented in this encounter
== END 2025-06-29 14:18 | disposition home or self-care (01) ==
LOC: HO.HKA 13:51
PROVIDERS: Visit Provider Internal Medicine Hypertension Specialist
DX: N04.9 Nephrotic syndrome with unspecified morphologic changes (principal); N18.9 Chronic kidney disease, unspecified
CPT/HCPCS: 99214

== ENCOUNTER → 2025-06-29 13:51 | Outpatient (BNVA) | payer MEDICARE, SELFPAY | PROVIDERS: Visit Provider Internal Medicine Hypertension Specialist | DX: I12.9 Hypertensive chronic kidney disease with stage 1 through stage 4 chronic kidney disease, or unspecified chronic kidney disease (principal); N18.30 Chronic kidney disease, stage 3 unspecified; Z87.891 Personal history of nicotine dependence; F11.11 Opioid abuse, in remission | CPT/HCPCS: 99212 ==

== ENCOUNTER 2025-07-03 09:38 | Outpatient (REF) | payer MEDICARE, SELFPAY ==
--- OUTSIDE RECORDS SUMMARY | 2024-05-20 08:00 | XMS_ITS ---
Author Organization [facility] Address [address] [place] [address] Care Team Providers Care Social Science Instructor Name Role Phone Kostas Boone MD Primary Care Provider Vanessa Easton Unavailable [phone] Medications Medication SIG (Take, Route, Fr equency, [...] 05/20/2024 Encounters Encounter Location Date Provider Diagnosis [facility] [address] [place] [address] 05/20/2024 Vanessa Hartman Plan Of Treatment No Information Progress Notes * DANUTA KostasDOB:1960 (65 yo M)Acc No.[id number]:05/20/2024 Progress Notes Patient: Kostas NICHOLSON Provider: Candy Hartman DPM :1960 A ge:64 Y S ex:Male Date:05/20/2024 Address:[address], [id number] Pcp:Kostas Boone MD Subjective: * Chief Complaints: [...] enies. C ardiovascular: Pacemaker d enies. M MAILS SUPERVISOR d enies. W PW d enies. C [...] DPM Date: Generated for Rodney culver/Parvin/Sofi on: 09/02/2024 09:42 AM EST
--- OUTSIDE RECORDS SUMMARY | 2025-01-19 06:30 | XMS_ITS ---
Author Organization [facility] Address [address] [place] [address] Care Team Providers Care Dinking Machine Operator Name Role Phone Mahnaz Witt CNP Primary Care Provider Un available Dex Garsia Unavailable [phone] REASON FOR VISIT gerd,mcfarland's esophagus w/ low grade dysplasia Encounters Encounter Location Date Provider Diagnosis [facility] [place] Out[place] [address] [place], [place] [phone] 01/19/2025 Dex Garsia 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 ; Gastritis K29.70 and Hiatal hernia K44.9 Assessments Encounter Date Diagnosis (ICD Code) Assessment Notes Treatment Notes Treatment Clinical Notes Section Notes 01/19/2025 Mcfarland esophagus (ICD-10 - K22.70) 01/19/2025 Gastritis (ICD-10 - K29.70) 01/19/2025 Hiatal hernia (ICD-10 - K44.9) Plan Of Treatment No Information Progress Notes * ZACK TIPTONDOB:1960 (65 yo M)Acc No.[id number]:01/19/2025 EGD/MAC Patient: ZACK NICHOLSON Provider: Kerry Garsia MD :1960 A ge:65 Y S ex:Male Date:01/19/2025 Address: [address] [facility] Pcp:Mahnaz Witt CNP Subjective: * Chief Complaints: * G erd,mcfarland's esophagus w/ low grade dysplasia Assessment: * Assessment: 1. 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 G astritis - K29.70 3 . H iatal hernia - K44.9 Plan: * Procedure Codes: 4 3239 UPPER GI ENDOSCOPY, BIOPSY Billing Information: * Procedure Codes: 13906 UPPER GI ENDOSCOPY, BIOPSY. * The named appointment provid er may or may not be the originator of this progress note, and it is not deemed complete until electronically signed by the appointment provider. Sign off status: Pending * Provider: Kerry Garsia MD Date: 0 01/19/2025 Generated for Rodney culver/Parvin/Toneyitting on: 09/02/2024 09:41 AM EST
--- OUTSIDE RECORDS SUMMARY | 2025-06-28 23:59 | XMS_ITS | Continuity of Care Document ---
Author Organization [facility] Jimmy lt Address [address] [place] [address]- Care Team Providers Care Manager User Experience Name Role Phone Gabby DENTON, Heike Nance Primary Care Physic bassem Encounter [facility] Date(s): 05/29/25 - 06/28/25 [facility] Adult [address] [place] [address]- [place] Encounter Type: Triage Allergies, Adverse Reactions, Alerts No Known Medication Allergies Immunizations Given and Recorded Vaccine Date Status Refusal Reason SARS-CoV-2 (COVID-19) mRNA-1273 vaccine 07/11/21 R ecorded Medications Cavilon Durable Barrier topical cream 1 application, Topically, 2 times a day, PRN as needed for dry skin, # 30 Gm, 0 Refills, Maintenance, 08/03/22 8:33:00 AM EST, Cream, [id number], Partial fill upon patient request if the prescription is for a schedule II opioid drug., 1 application Topically 2 times a day,PRN:as needed for dry skin, 175, cm, 08/03/22 8:03:00 EST, Height, 86.5, kg, 12/16/21 10:50:00 EDT, Dry Weight Start Date: 08/03/22 Status: Ordered Medication Dispense Status: Completed Quantity: 30.0 Unit: g Total Allowed Fills: 1 Fills Dispensed: 0 Indications: Abrasion of lower back and pelvis, initial encounter; Other skin changes; clotrimazole 1% topical cream 1 application, Topically, 2 times a day, INSTR:APPLY TO AFFECTED AREA ON LEFT TRUNK., # 60 Gm, 0 Refills, Maintenance, 02/05/24 8:09:00 AM EDT, [id number], 60, USE 1 APPLICATION TOPICALLY 2 TIMES A DAY,INSTR:APPLY TO AFFECTED AREA ON LEFT TRUNK., 175, cm, 01/04/24 9:46:00 EDT, Height Start Date: 02/05/24 Status: Ordered Medication Dispense Status: Completed Quantity: 60.0 Unit: g Total Allowed Fills: 1 Fills Dispensed: 0 diclofenac 1% topical gel 1 application, Topically, 4 times a day, # 100 Gm, 0 Refills, Maintenance, 10/06/24 1:52:00 PM EST, Gel, [id number], Partial fill upon patient request if the prescription is for a schedule II opioid drug., 175, cm, 10/06/24 13:39:00 EST, Height Start Date: 10/06/24 Status: Ordered Medication Dispense Status: Completed Quantity: 100.0 Unit: g Total Allowed Fills: 1 Fills Dispensed: 0 famotidine 20 mg oral tablet 20 mg, 1, tablet, By Mouth, Daily, Refills 0, Maintenance, 07/03/21 3:45:00 PM EST, Partial fill upon patient request if the prescription is for a schedule II opioid drug. Start Date: 07/03/21 Status: Ordered Medication Dispense Status: Completed Total Allowed Fills: 1 Fills Dispensed: 0 Knee-high compression stockings Knee-high compression stockings, See Instructions, # 2 each, Refills 0, Tot. Refills 0, Maintenance, knee-high compression stockings. 20-30mmhg., 03/20/22 4:51:00 PM EDT, Supply, 175, cm, 03/17/22 13:29:00 EDT, Height, 86.5, kg, 12/16/21 10:50:00 EDT, Dry Weight Start Date: 03/20/22 Status: Ordered Medication Dispense Status: Completed Quantity: 2.0 Unit: each Total Allowed Fills: 1 Fills Dispensed: 0 Indications: Localized edema; levothyroxine 75 mcg (0.075 mg) oral tablet 1 tablet, By Mouth, Daily, Needs to make visit to obtain more medication., # 90 tablet, 0 Refills, Maintenance, 06/24/25 11:50:00 AM EST, [id number], 175, cm, 01/29/25 8:42:00 EDT, Height Start Date: 06/24/25 Status: Ordered Medication Dispense Status: Completed Quantity: 90.0 Unit: tablet Total Allowed Fills: 1 Fills Dispensed: 0 Indications: Hypothyroidism, unspecified; Methadone See Instructions, 79mg daily, 0 Refills, Maintenance, 02/18/18 2:53:39 PM EDT Start Date: 02/18/18 Status: Ordered Medication Dispense Status: Completed Total Allowed Fills: 1 Fills Dispensed: 0 sodium zirconium cyclosilicate 10 g oral powder for reconstitution 1 pack/packet = 10 Gm, By Mouth, Every Sunday, and Sunday, # 13 pack/packet, 0 Refills,Soft Stop, 07/03/21 8:48:00 AM EST, Packet, [facility], Partial fill upon patient request if the prescription is for a schedule II opioid drug., 175, cm, 07/03/21 7:54:00 EST, Height, 85.3, kg, 06/29/21 17:37:00 EST, Dry Weight Start Date: 07/03/21 Stop Date: 08/02/21 Status: Ordered Medication Dispense Status: Completed Quantity: 13.0 Unit: pack/packet Total Allowed Fills: 1 Fills Dispensed: 0 Problem List Condition Confirmation Course Effective Dates Status H ealth Status Informant Steele esophagus Confirmed Active Bronchospasm Confirmed Active Chronic constipation Confirmed Active 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 Confirmed Active Cluster headache Confirmed Active Cough Confirmed Active Low testosterone Confirmed Active Essential hypertension Confirmed 12/22/20 Active FSGS (focal segmental glomerulosclerosis) Confirmed Active Esophagitis, reflux Confirmed Active Hepatic fibrosis Confirmed Active History of hepatitis C - Harvoni tx, in remission Confirmed Active History of hepatitis C Confirmed Active Hypothyroidism Confirmed Active Drug abuse, IV - in remission since 2005 Confirmed Active Irritable bowel syndrome without diarrhea Confirmed Active IBS (irritable bowel syndrome) Confirmed Active Hypogonadism male Confirmed Active Long-term current use of methadone for opiate dependence Confirmed Active Migraine Confirmed 12/22/20 Active Nephrotic syndrome, focal and segmental glomerular lesions Confirmed 07/12/21 Active Osteopenia Confirmed Active Long-term proton pump inhibitor therapy Confirmed Active Social History Social History Type Response Smoking Status Former smoker entered on: 04/17/18 Sex Sex Representation Male (finding) Patient Care team information Care Team Personnel Name: Ana SEVILLA, Ryan Nielsen Position: [facility] Renal MD Member Role: Lifetime Consulting Physician Address: [address] [place] [address] [address] [facility] [place] [address]- [place] Telecom: Name: Heike Pierre NP Position: [facility] PCO Associate Professional Member Role: PCP [facility] [address] [facility] [place] [address]- [place] Telecom: Care Team Related Persons Name: SIENNA ALVARADO Insurance Providers Guarantor name: ZACK DANUTA [email or web address] Information #: 1 Payer: MEDICARE B Payer Identifier: NA Member Number: [id number] Group Number: NA Subscriber Identifier: NA Relationship to Subscriber: self Coverage Type: NA Coverage Verification Date: NA Telecom: NA Address: NA Health Plan Information #: 2 Payer: [employer] Payer Identifier: NA Member Number: [id number] Group Number: NA Subscriber Identifier: NA Relationship to Subscriber: self Coverage Type: MEDICAID Coverage Verification Date: NA Telecom: NA Address:
--- OUTSIDE RECORDS SUMMARY | 2025-07-03 09:42 | XMS_ITS | Encounter Summary ---
Author Organization [facility] Address [address] [place] [address] Phone Care Team Providers Care Lisw Name Role Phone Marcell Moya MD Primary Care Provider [phone] Encounter Details Date Type Department Care Team (Late st Contact Info) Description 02/11/2021 Orders Only [facility] [address] [place] [address] Melvin Torres MD [address] [place] [address], [address] [address] Nephrotic syndrome with minor glomerular abnormality Social [...] abnormality documented in this encounter Care Teams Lisw Relationship Specialty Start Date End Date Marcell Moya MD [facility] [place]ENIL[place] PCP - General Internal Medicine 12/17/20 documented as of this encounter
--- OUTSIDE RECORDS SUMMARY | 2025-07-03 09:42 | XMS_ITS | Encounter Summary ---
Author Organization [employer] Address [address] [facility] [address] [place] [address] Care Team Providers Care Cnc Mill Operator Name Role Phone Unavailable Primary Care Provider Unavailabl e Encounter Details Date Type Department Care Team (Latest Contact Info) Description 06/02/[address] [facility] CONVERSIONS Dental, Provider, DDS Social History [...]
--- OUTSIDE RECORDS SUMMARY | 2025-07-03 09:42 | XMS_ITS | Encounter Summary ---
Author Organization [employer] Address [address] [facility] [address] [place] [address] Care Team Providers Care Ap Operator Name Role Phone Unavailable Primary Care Provider Unavailabl e Reason for Visit * Reason Onset Date Comments returned call insurance inactive 05/06/2025 Encounter Details Date Type Department Care Team (Late st Contact Info) Description 05/06/2025 Telephone [facility] [address] [place], [place] [phone] Vignesh Thompson, DMD [address] [place], [place] [phone] returned call insurance inactive Social History Tobacco [...]
--- OUTSIDE RECORDS SUMMARY | 2025-07-03 09:42 | XMS_ITS | Clinical Summary ---
Author Organization [email or web address] Address [address] [facility] [address] [place] [address] Care Team Providers Care Launch Commander [employer] Name Role Phone Unavailable Primary Care Provider [...] Telephone [facility] ADULT DENTAL [address] [place] [address] Vignesh Thompson DMD returned call insurance inactive 04/08/2025 8:45 AM EDT Office Visit [facility] ADULT DENTAL [address] [place] [address] Vignesh Thompson DMD from Last 3 Months [...] Insurance [place] [id number]
--- OUTSIDE RECORDS SUMMARY | 2025-07-03 09:42 | XMS_ITS | Encounter Summary ---
Author Organization [facility] Address [address] [place] [address] Phone Care Team Providers Care Plush Weaver Name Role Phone Marcell Moya MD Primary Care Provider [phone] Encounter Details Date Type Department Care Team (Late st Contact Info) Description 02/04/2021 Orders Only [facility] [address] [place] [address] Melvin Torres MD [address] [place] [address], [address] [address] Nephrotic syndrome with minor glomerular abnormality Social [...] abnormality documented in this encounter Care Teams Plush Weaver Relationship Specialty Start Date End Date Marcell Moya MD [address] [place] PCP - General Internal Medicine 12/17/20 documented as of this encounter
--- OUTSIDE RECORDS SUMMARY | 2025-07-03 09:42 | XMS_ITS | Patient Health Record ---
Author Organization [facility] Address [address] [place] [address] Care Team Providers Care Head Strength And Conditioning Coach Name Role Phone Mahnaz Witt CNP Primary Care Provider Un available Ady Dex Unavailable [phone] Allergies No Known Allergies Results Component Value Reference Range Flag Notes Complete Blood Count Auto Di ff Reviewed date:10/03/2024 05:18:21 PM Interpretation: Performing Lab:[facility], [address] [place] [phone] Notes/Report: White Blood Count 4.4 4.8-10.8 X10*3/uL [...] INR Reviewed date:10/03/2024 05:18:31 PM Interpretation: Performing Lab:[address] [address] Notes/Report: Prothrombin Time 11.7 10.9-12.4 SEC N [...] Panel Reviewed date:10/03/2024 05:18:43 PM Interpretation: Performing Lab:[address] [address] Notes/Report: Bilirubin Total 0.8 0.0-1.0 mg/dL N Bilirubin Direct 0.3 0.0-0.5 mg/dL N Aspartate Amino Transferase 30 5-37 U/L N Alanine Aminotransferase 17 0-40 U/L N Total Protein 7.8 6.5-8.0 g/dL N Albumin Level 4.3 3.5-5.0 g/dL N Alkaline Phosphatase 81 39-117 U/L N Alpha Fetoprotein Reviewed date:10/09/2024 10:14:28 AM Interpretation: Performing Lab:[address] [address] Notes/Report: Alpha Fetoprotein 0.9 <6.1 ng/mL N This test was performed using the [employer] [place] chemiluminescent method. Values obtained from different assay methods cannot be used interchangeably. AFP levels, regardless of value, should not be interpreted as absolute evidence of the presence or absence of disease. THIS TEST WAS PERFORMED AT: [facility] [address] [place] [phone] ERI WATTS MD Liver Fibrosis Pnl Reviewed date:10/09/2024 10:14:19 AM Interpretation: Performing Lab:[facility], [address] [place] [phone] Notes/Report: Liver Fibrosis Score 0.44 Liver Fibrosis [...] a>0.62 and a<=1.00 : A3 (severe activity) MXU-Ijkpj-8-Macroglobulin 430 106-279 mg/dL A FIB-Haptoglobin 114 43-212 mg/dL FIB-Apolipoprotein A1 205 94-176 mg/dL A FIB-Total Bilirubin 0.6 0.2-1.2 mg/dL FIB-GGT 12 3-70 U/L FIB-ALT 15 9-46 U/L Reference ID [id number] Footnote SEE NOTE The reliability of results [...] The performance characteristics have been determined by [facility]. It has not been cleared or approved by the U.S. Food and Drug Administration. Performance characteristics refer to the analytical performance of the test. [employer], the associated logo, [employer] and all associated [employer] chung are the registered trademarks of [employer]. All third libertarian chung - (R) and (TM) - are the property of their respective owners. (C) 3877-6659 [employer]. All rights reserved. THIS TEST WAS PERFORMED AT: [facility] [facility] [place] [address] [place] [address] TMAEKA JONES MD,PHD,REENA US abdomen comp w elastograp hy Reviewed date:10/23/2024 11:13:38 AM Interpretation: Performing Lab: Notes/Report: [address] [address] Ultrasound Report Signed Patient: Zack Dunn MR#: [id number] 2 : 1960 Acct:[id number] Age/Sex: 64 / M ADM Date: 10/03/24 Loc: HO.US Attending Dr: Dex Garsia MD Ordering Physician: Dex Garsia MD Date of Service: 10/03/24 Procedure(s): US abdomen comp w elastography Accession Number(s): [id number] cc: EduarMahnaz M [facility] ([place], [place]), [facility]-; Dex Garsia MD EXAMINATION: US ABDOMEN [...] 10/06/24 0719 DD/ 1040 TD/TT: 10/03/24 1113 Binder Roller: Pathology Reviewed date:06/18/2025 03:25:42 PM Interpretation: Performing Lab:[facility], [address] [place] [address], [place] [address] Notes/Report: Reason For Referral No Information Medications Medication SIG (Take, Route, Frequency, Duration) Notes Start Date End Date Status Methadone HCl 64 mg Concentrate 1 ml mixed with water as needed Orally Once a day Active Levothyroxine Sodium 75 MCG Capsule 1 capsule Orally Once a day Active Vitamin W88-Njtrm Acid 500-400 MCG Tablet 1 Orally QD [...] W/U Status Risk Notes Problem Esophageal reflux (341231877) Esophageal reflux (K21.9) Active confirmed Problem Gastro-esophageal reflux disease without esophagitis (770841231) Gastro-esophageal reflux disease without esophagitis (K21.9) Active confirmed Problem Abdominal bloating (948265853) Abdominal bloating (R14.0) Active confirmed Problem Steele's esophagus (617070412) 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) Active confirmed Problem Steele's esophagus (527753651) 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) Active confirmed Problem Gastroesophageal reflux disease without esophagitis (512541076) Gastroesophageal reflux disease without esophagitis (K21.9) Active confirmed Problem Chronic hepatitis C (789435006) Chronic hepatitis C without hepatic coma (B18.2) Active confirmed Problem History of polyp of colon (situation) (985917574) History of colon polyps (Z86.010) Active confirmed Problem Screening for colon cancer (442127920) Screening for colon cancer (Z12.11) Active confirmed Problem Constipation (28317171) Constipation, unspecified constipation type (K59.00) Active confirmed Problem History of adenomatous polyp of colon (546396235) Hx of adenomatous colonic polyps (Z86.010) Active confirmed Problem Right upper quadrant pain (237138348) Abdominal pain, right upper quadrant (R10.11) Active confirmed Problem Steele esophagus (203122594) Steele esophagus (K22.70) Active confirmed Problem History of hepatitis C (52865672457820) History of hepatitis C (Z86.19) Active confirmed Problem Diarrhea (10519936) Diarrhea, unspecified type (R19.7) Active confirmed Problem History of gastrointestinal disease (517135974) History of chronic hepatitis (Z87.19) Active confirmed Problem Irritable bowel syndrome (14526133) Irritable bowel syndrome with both constipation and diarrhea (K58.2) Active confirmed Problem Diverticulosis of colon (582724385) Diverticulosis of colon (K57.30) Active confirmed Problem Family history of celiac disease (757825997) Family history of celiac disease (Z83.79) Active confirmed Problem Steele's esophagus (181568700) Steele''s esophagus without dysplasia (K22.70) Active confirmed Problem Hepatic fibrosis (disorder) (74309970) Liver fibrosis (K74.00) Active confirmed Vital Signs Blood pressure diastolic 11 mm Hg 10/23/2024 Height 68.5 in 10/23/2024 Blood pressure systolic 111 mm Hg 10/23/2024 Weight 176 lbs 10/23/2024 BMI 26.37 kg/m2 10/23/2024 Procedures Procedure Date Ordered Date Performed Result Body Sit e UPPER GI ENDOSCOPY 10/23/2024 N/A Encounters Encounter Location Date Provider Diagnosis [facility] [address] [place] [phone] 01/19/2025 Dex Garsia Steele esophagus K22.70 ; Gastritis K29.70 and Hiatal hernia K44.9 [facility] [address] [place] [phone] 10/23/2024 Dex Garsia Liver fibrosis K74.0 0 ; Steele's esophagus with low grade dysplasia K22.710 ; History of hepatitis C Z86.19 ; Screening for colon cancer Z12.11 and Gastro-esophageal reflux disease without esophagitis K21.9 [facility] [address] [place] [phone] 08/18/2024 Dex Garsia Liver fibrosis K74.0 0 and History of chronic hepatitis Z87.19 [facility] [address] [place] [phone] 02/04/2025 Dex Garsia [facility] [address] [place] [phone] 06/18/2025 Dex Garsia [facility] [address] [place] [phone] 06/18/2025 Dex Garsia [facility] [address] [place] [phone] 06/24/2025 Dex Garsia Assessments Encounter Date Diagnosis (ICD [...] OF [place] [address] [place] [address] [id number] DANUTA ZACK Self - patient is the insured MEDICAID [facility] [address] [place] [address] [id number] DANUTA ZACK Self - patient is the [...] Substance abuse-last used Heroin in 2013 Denies ME,DM,CVA,renal disease Asthma Saw Dr. Marcelo in 06/2018 at [facility]--had an EGD with GERD(no esophagitis) and small area of Steele's esopghagus-biopsies negative for dysplasia, and a negative colonoscopy in 06/2018 Nephrotic syndrome - being s een by [facility] Edging Catcher Dr. Ann---s/p renal biopsy in 06/2021 at [facility] with a complication of a hematoma--hospitalized at [facility] Negative screening colonoscopy in March of 2023 [...]
--- OUTSIDE RECORDS SUMMARY | 2025-07-03 09:42 | XMS_ITS | Encounter Summary ---
Author Organization [facility] Address [address] [place] [address] Phone Care Team Providers Care Cathode Washer Name Role Phone Marcell Moya MD Primary Care Provider [phone] Encounter Details Date Type Department Care Team (Late st Contact Info) Description 02/18/2021 Orders Only [facility] [address] [place] [phone] Melvin Torres MD [address] [place] [address], [address] [address] Nephrotic syndrome with minor glomerular abnormality Social [...] abnormality documented in this encounter Care Teams Cathode Washer Relationship Specialty Start Date End Date Marcell Moya MD [facility] [address] PCP - General Internal Medicine 12/17/20 documented as of this encounter
--- OUTSIDE RECORDS SUMMARY | 2025-07-03 09:42 | XMS_ITS | Clinical Summary ---
Author Organization [facility] Address [address] [place] [address] Phone Care Team Providers Care Environmental Epidemiologist Name Role Phone Marcell Moya MD Primary [...] Medicaid [place] Care Teams Environmental Epidemiologist Relationship Specialty Start Date End Date Marcell Moya MD [address] [place] PCP - General Internal Medicine 12/17/20
--- OUTSIDE RECORDS SUMMARY | 2025-07-03 09:42 | XMS_ITS | Encounter Summary ---
Author Organization [employer] Address [address] [facility] 7t [place] [address] Care Team Providers Care Quickbooks Bookkeeper Name Role Phone Unavailable Primary Care Provider Unavailabl e Reason for Visit * Reason Onset Date Comments referral mixing picker tender 05/22/2024 Encounter Details Date Type Department Care Team (Late st Contact Info) Description 05/22/2024 Telephone [facility] [address], [place] [phone] Mau Freeman, DMD [address] [place] [address] referral mixing picker tender Social History Tobacco Use Types Packs/Day Years [...] in because will be coming by to mixing picker tender referral scanned in on 05/20 for [facility]. Contacted [facility] frontload driver and informed patient would be coming by for mixing picker tender DR documented in this encounter Plan of Treatment Not on file documented as of this encounter Visit Diagnoses Not on filedocumented in this encounter
--- OUTSIDE RECORDS SUMMARY | 2025-07-03 09:42 | XMS_ITS | Patient Health Record ---
Author Organization [facility] Address [address] [place] [address] Care Team Providers Care Utility Bill Collector Name Role Phone Kostas Boone MD Primary Care Provider Unavaila Vanessa Crooks Unavailable [phone] Allergies No Known Allergies Reason For Referral [...] 09/02/2024 Encounters Encounter Location Date Provider Diagnosis [facility] [address] [place] [address] 09/02/2024 Vanessa Hartman Tinea pedis of both [...] Inc [address] [place] [address] [id number] Kostas Dunn Self - patient is the insured Medical (General) History Medical History History ICD Code Broken bones covid-19 Headaches/Migraines Hepatitis Kidney disease Liver disease Lyme disease thyroid Chicken pox Surgical History Surgery Date(Month/Year) colonoscopy wisdom teeth extraction
[2025-07-03 10:37] LABS: Alanine Aminotransferase 19 U/L (0-40); Albumin Level 3.8 g/dL (3.5-5.0); Alkaline Phosphatase 96 U/L (39-117); Anion Gap 17 (12-20); Aspartate Amino Transferase 25 U/L (5-37); Blood Urea Nitrogen 41 mg/dL (9-16); Calcium 9.3 mg/dL (8.4-10.2); Carbon Dioxide 34 mmol/L (22-29); Chloride 95 mmol/L (96-108); Estimated Glomerular Filt Rate 47; Potassium 4.5 mmol/L (3.3-5.1); Sodium 141 mmol/L (135-145); Total Protein 7.0 g/dL (6.5-8.0)
[2025-07-03 10:50] LABS: Appearance Urine Clear; Glucose Urine UA Negative (Negative); PH 6.0 (5.0-9.0); Specific Gravity - Urine 1.025 (1.005-1.025)
== END 2025-07-03 09:39 | disposition home or self-care (01) ==
LOC: HO.LAB 09:38
PROVIDERS: Internal Medicine Hypertension Specialist; Visit Provider Psychiatry & Neurology Neurology
DX: N04.9 Nephrotic syndrome with unspecified morphologic changes (principal)
CPT/HCPCS: 36415; 80053; 81003

== ENCOUNTER 2025-07-14 14:57 | Outpatient (AMB) | payer MEDICARE, SELFPAY ==
--- OUTSIDE RECORDS SUMMARY | 2024-05-20 08:00 | XMS_ITS ---
Author Organization [facility] Address [address] [place] [address] Care Team Providers Care Intelligence Director Name Role Phone Kostas Boone MD Primary Care Provider Vanessa Easton Unavailable [phone] Medications Medication SIG (Take, Route, Fr equency, [...] 05/20/2024 Encounters Encounter Location Date Provider Diagnosis [facility] [address] [place] [address] 05/20/2024 Vanessa Hartman Plan Of Treatment No Information Progress Notes * SHAUN KostasDOB:1960 (65 yo M)Acc No.[id number]:05/20/2024 Progress Notes Patient: Kostas NICHOLSON Provider: Candy Hartman DPM :1960 A ge:64 Y S ex:Male Date:05/20/2024 Address:[address], [id number] Pcp:Kostas Boone MD Subjective: * Chief Complaints: [...] enies. C ardiovascular: Pacemaker d enies. M JACK SPOOLER TENDER d enies. W PW d enies. C [...] DPM Date: Generated for Rodney culver/Parvin/Sofi on: 09/14/2024 09:16 PM EST
--- OUTSIDE RECORDS SUMMARY | 2025-01-19 06:30 | XMS_ITS ---
Author Organization [facility] Address [address] [place] [address] Care Team Providers Care Waste Handling Technician Name Role Phone Mahnaz Witt CNP Primary Care Provider Un available Dex Garsia Unavailable [phone] REASON FOR VISIT gerd,mcfarland's esophagus w/ low grade dysplasia Encounters Encounter Location Date Provider Diagnosis [facility] [place] [address] [place], [place] [phone] 01/19/2025 Dex Garsia 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 ; Gastritis K29.70 and Hiatal hernia K44.9 Assessments Encounter Date Diagnosis (ICD Code) Assessment Notes Treatment Notes Treatment Clinical Notes Section Notes 01/19/2025 Mcfarland esophagus (ICD-10 - K22.70) 01/19/2025 Gastritis (ICD-10 - K29.70) 01/19/2025 Hiatal hernia (ICD-10 - K44.9) Plan Of Treatment No Information Progress Notes * ZACK TIPTONDOB:1960 (65 yo M)Acc No.[id number]:01/19/2025 EGD/MAC Patient: ZACK NICHOLSON Provider: Kerry Garsia MD :1960 A ge:65 Y S ex:Male Date:01/19/2025 Address: [address] [facility] Pcp:Mahnaz Witt CNP Subjective: * Chief Complaints: * G erd,mcfarland's esophagus w/ low grade dysplasia Assessment: * Assessment: 1. 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 G astritis - K29.70 3 . H iatal hernia - K44.9 Plan: * Procedure Codes: 4 3239 UPPER GI ENDOSCOPY, BIOPSY Billing Information: * Procedure Codes: 48512 UPPER GI ENDOSCOPY, BIOPSY. * The named appointment provid er may or may not be the originator of this progress note, and it is not deemed complete until electronically signed by the appointment provider. Sign off status: Pending * Provider: Kerry Garsia MD Date: 0 01/19/2025 Generated for Rodney culver/Parvin/Toneyitting on: 1 09/14/2024 09:15 PM EST
--- NOTE | 2025-07-14 14:58 | HO.NEPHOV_ITS ---
Vital Signs 07/14/25 14:59 Height 5 ft 9 in Weight 186 lb BMI 27.5 BP 138/76 Blood Pressure Location Lt brachial Position Sitting Pulse 69 Pulse Source Pulse Oximeter Pulse Oximetry (%) 98 Oxygen Delivery Method Room Air Intake Visit Reasons: 2 wks f/u w/ labs Adjunct Communications Faculty Member Required: No Accompanied by: Self / Same As Patient Allergies No Known Allergies Allergy (Mild, Verified 07/14/25 15:00) NOT APPLICABLE Medication List - Last Reconciled 07/14/25 by Ryan Perez MD cholecalciferol (vitamin D3) (Vitamin D3) 50 mcg PO DAILY coQ10 (ubiquinol) 100 mg PO DAILY cyanocobalamin (vitamin B-12) (Vitamin B-12) 500 mcg PO DAILY famotidine 40 mg PO DAILY levothyroxine 75 mcg PO DAILY methadone 85 mg PO DAILY omega 9-emb-kyf-fish oil 1,000 (120-180) mg (Fish Oil) 1 cap PO DAILY prednisone 40 mg (2 x 20 mg) PO DAILY sumatriptan succinate 100 mg orally at onset of migraine. May repeat in 2hrs. Max 2/ 24 hrs PRN; 30 days HPI Comments Details: History of Present Illness The patient is a 65 year old male presenting for follow-up of nephrotic syndrome. . He has had nephrotic syndrome for several years. He has a history of hepatitis-C and treated with Harvoni back in 2019. 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 He was treated with a prednisone. With steroids he went into remission and the urine protein creatinine ratio was down to 0.08. He has a history of using heroin. He has stopped using it recently. Recently found to have significant increase in urinary protein excretion He is currently being treated with prednisone, which he has been taking for almost one month. His leg swelling has improved, and he has had a weight loss from 192 lbs to 186 lbs. He is not currently taking any diuretics, as they were discontinued due to their effect on his kidney function. The patient reports recent episodes of high blood pressure at home, with readings as high as 187/97 mmHg. He notes a sensation of hearing his heartbeat in his ear when his blood pressure is elevated. He has never been on blood pressure medication previously, although he was briefly on lisinopril which was discontinued. The patient's past medical history is significant for Steele's esophagus, for which he takes famotidine. He has a history of hospitalization for a potassium imbalance. He underwent a kidney biopsy on June 23, 2021, which was complicated by an acute kidney injury and hematuria, leading to a one-week hospitalization. He also has a remote history of a liver biopsy. The patient reports no known drug allergies. [facility] Medical History (Updated 06/24/25 @ 14:53 by Nilsa Hart, RD, LDN) Nephrotic syndrome Nephrotic syndrome Asthma Substance abuse Depression Thyroiditis Chronic hepatitis C Hypothyroidism BPH (benign prostatic hyperplasia) Elevated PSA Surgical History History of liver biopsy History of biopsy of kidney H/O colonoscopy H/O esophagogastroduodenoscopy History of prostate surgery Social History Household Members: Spouse Patient Tobacco Use Status: Former Tobacco user Tobacco use type: Cigarette Physical Exam Exam Exam: Physical Exam General: Awake. Comfortable. HENT: Neck supple. Mucosa moist. Pulmonary: Lungs aeration equal. No rales. Cardiology: Heart S1-S2 heard. No gallop. Blood pressure readings noted at 157/93 and 185/97. Abdomen: Soft. Non tender. Bowel sounds normal. Neurologic: No involuntary movements. No myoclonus. Extremities: No edema. No rash. Swelling under control without diuretics. Vital Signs: Last Vital Signs Pulse 69 07/14/25 14:59 BP 138/76 07/14/25 14:59 Pulse Ox 98 07/14/25 14:59 Oxygen Delivery Method Room Air 07/14/25 14:59 BMI result Body Mass Index 27.5 Results Reviewed Nephrology Results: Hgb, (14.0-18.0) 13.4 g/dl L 06/24/25 WBC, (4.8-10.8) 9.9 X10*3/uL 06/24/25 Plt Count, (160-400) 216 X10*3/uL 06/24/25 Sodium, (135-145) 141 mmol/L 07/03/25 Potassium, (3.3-5.1) 4.5 mmol/L 07/03/25 Chloride, (96-108) 95 mmol/L L 07/03/25 Carbon Dioxide, (22-29) 34 mmol/L H 07/03/25 BUN, (9-16) 41 mg/dL H 07/03/25 Creatinine, (0.5-1.4) 1.49 mg/dL H 07/03/25 Calcium, (8.4-10.2) 9.3 mg/dL 07/03/25 Urine Protein, (Neg-Trace) Trace mg/dL 07/03/25 Urine Creatinine 173.81 mg/dL 06/24/25 Assessment & Plan Assessment & Plan (1) Nephrotic syndrome: Code(s): N04.9 - Nephrotic syndrome with unspecified morphologic changes Category: Medical (2) CKD (chronic kidney disease): Code(s): N18.9 - Chronic kidney disease, unspecified Category: Medical Plan 1. Nephrotic Syndrome And Proteinuria - Continue prednisone 40 mg daily. - A refill for prednisone will be provided. - The decision to taper prednisone will depend on the response to treatment, as assessed by urine protein levels in upcoming lab work. - If the patient does not respond well to prednisone, an additional medication may be considered. 2. Hypertension - Start lisinopril 5 mg daily to manage blood pressure and reduce proteinuria. 3. Edema - Diuretics will be held at this time, as swelling is currently under control without them. 4. Follow-Up And Monitoring - The patient is to have bloodwork and a urine test performed one week after starting lisinopril. - These labs will be used to monitor kidney function, potassium levels, and the effect of lisinopril. - Fasting is not required for the labs. - Further testing will be determined based on the results of these labs. Orders: Orders Total Protein Urine Random 1 Week N04.9 - Nephrotic syndrome with unspecified morphologic changes, N18.9 - Chronic kidney disease, unspecified Basic Metabolic Panel 1 Week N04.9 - Nephrotic syndrome with unspecified morphologic changes, N18.9 - Chronic kidney disease, unspecified Creatinine Urine 1 Week N04.9 - Nephrotic syndrome with unspecified morphologic changes, N18.9 - Chronic kidney disease, unspecified UA and rflx microscopic 1 Week N04.9 - Nephrotic syndrome with unspecified morphologic changes, N18.9 - Chronic kidney disease, unspecified Complete Blood Count no Diff 1 Week N04.9 - Nephrotic syndrome with unspecified morphologic changes, N18.9 - Chronic kidney disease, unspecified Medications: New lisinopril 5 mg PO DAILY 90 tabs 1RF Refilled prednisone 40 mg (2 x 20 mg) PO DAILY 30 tabs 1RF Discontinued bumetanide Discontinued Reason: Patient no longer taking 1 mg PO DAILY 30 tabs 1RF Coding Level of Care Code Est Pt Level 4 (30174) Diagnoses Nephrotic syndrome N04.9 CKD (chronic kidney disease) N18.9
[2025-07-14 14:59] VITALS: BP 138/76; PULSE 69; O2SAT 98; BMI 27.5
--- OUTSIDE RECORDS SUMMARY | 2025-07-14 21:15 | XMS_ITS | Clinical Summary ---
Author Organization [employer] Address [address] [facility] 7t [place] [address] Care Team Providers Care Reconciliation Analyst Name Role Phone Unavailable Primary Care [...] Type Department Care Team Description 05/06/2025 Telephone [facility] [address] [place] [address] Vignesh Thompson DMD returned call insurance inactive from Last 3 Months Social History Tobacco [...] 2025 Dental X-Ray: Full Mouth 04/06/2026 04/05/2023, 09/2018 Tobacco Screening 04/08/2026 04/08/2025 HIB Vaccines [...] Procedure Name Priority Date/Time Associated Diagnosis Comments BITEWINGS - 4 RADIOGRAPHIC IMAGES Routine 03/17/2024 2:30 PM EDT PERIODIC ORAL EVALUATION - ESTABLISHED PATIENT Routine 03/17/2024 2:30 PM EDT PROPHYLAXIS - ADULT Routine 10/17/2023 1 0:00 AM EDT Dental plaque INTRAORAL - COMPLETE SERIES OF RADIOGRAPHIC IMAGES Routine 04/05/2023 10:00 AM EDT from Last 3 Months or Most Recently Relevant to Health Maintenance Insurance [facility]IC[facility] MEDICAID [facility] ADULT
--- OUTSIDE RECORDS SUMMARY | 2025-07-14 21:15 | XMS_ITS | Encounter Summary ---
Author Organization [employer] Address [address] [facility] 7t [place] [address] Care Team Providers Care Manufacturing Engineering Technician Name Role Phone Unavailable Primary Care Provider Unavailabl e Reason for Visit * Reason Onset Date Comments returned call insurance inactive 05/06/2025 Encounter Details Date Type Department Care Team (Late st Contact Info) Description 05/06/2025 Telephone [facility] [address] [place], [place] [phone] Vignesh Thompson, DMD [address] [place], [place] [phone] returned call insurance inactive Social History Tobacco [...]
--- OUTSIDE RECORDS SUMMARY | 2025-07-14 21:16 | XMS_ITS | Patient Health Record ---
Author Organization [facility] Florence Address [address] [place] [address] Care Team Providers Care Architectural Modeler Name Role Phone Kostas Boone MD Primary Care Provider Unavaila Vanessa Crooks Unavailable [phone] Allergies No Known Allergies Reason For Referral [...] 09/02/2024 Encounters Encounter Location Date Provider Diagnosis [facility] [address] [place] [address] 09/02/2024 Vanessa Hartman Tinea pedis of both [...] Inc [address] [place] [address] [id number] Kostas Dunn Self - patient is the insured Medical (General) History Medical History History ICD Code Broken bones covid-19 Headaches/Migraines Hepatitis Kidney disease Liver disease Lyme disease thyroid Chicken pox Surgical History Surgery Date(Month/Year) colonoscopy wisdom teeth extraction
--- OUTSIDE RECORDS SUMMARY | 2025-07-14 21:16 | XMS_ITS | Patient Health Record ---
Author Organization [facility] Address [address] [place] [address] Care Team Providers Care Pickle Sorter Name Role Phone Mahnaz Witt CNP Primary Care Provider Un available Ady Dex Unavailable [phone] Allergies No Known Allergies Results Component Value Reference Range Flag Notes Complete Blood Count Auto Di ff Reviewed date:10/03/2024 05:18:21 PM Interpretation: Performing Lab:[facility], [address] [place] [phone] Notes/Report: White Blood Count 4.4 4.8-10.8 X10*3/uL [...] INR Reviewed date:10/03/2024 05:18:31 PM Interpretation: Performing Lab:[address] [address] Notes/Report: Prothrombin Time 11.7 10.9-12.4 SEC N [...] Panel Reviewed date:10/03/2024 05:18:43 PM Interpretation: Performing Lab:[address] [address] Notes/Report: Bilirubin Total 0.8 0.0-1.0 mg/dL N Bilirubin Direct 0.3 0.0-0.5 mg/dL N Aspartate Amino Transferase 30 5-37 U/L N Alanine Aminotransferase 17 0-40 U/L N Total Protein 7.8 6.5-8.0 g/dL N Albumin Level 4.3 3.5-5.0 g/dL N Alkaline Phosphatase 81 39-117 U/L N Alpha Fetoprotein Reviewed date:10/09/2024 10:14:28 AM Interpretation: Performing Lab:[address] [address] Notes/Report: Alpha Fetoprotein 0.9 <6.1 ng/mL N This test was performed using the Cruzito Fany chemiluminescent method. Values obtained from different assay methods cannot be used interchangeably. AFP levels, regardless of value, should not be interpreted as absolute evidence of the presence or absence of disease. THIS TEST WAS PERFORMED AT: [email or web address] [address] [place] [phone] ERI WATTS MD Liver Fibrosis Pnl Reviewed date:10/09/2024 10:14:19 AM Interpretation: Performing Lab:[facility], [address] [place] [phone] Notes/Report: Liver Fibrosis Score 0.44 Liver Fibrosis [...] a>0.62 and a<=1.00 : A3 (severe activity) IRR-Obkic-5-Macroglobulin 430 106-279 mg/dL A FIB-Haptoglobin 114 43-212 mg/dL FIB-Apolipoprotein A1 205 94-176 mg/dL A FIB-Total Bilirubin 0.6 0.2-1.2 mg/dL FIB-GGT 12 3-70 U/L FIB-ALT 15 9-46 U/L Reference ID [id number] Footnote SEE NOTE The reliability of results [...] The performance characteristics have been determined by [facility]. It has not been cleared or approved by the U.S. Food and Drug Administration. Performance characteristics refer to the analytical performance of the test. [employer], the associated logo, [employer] and all associated [employer] chung are the registered trademarks of [employer]. All third constitution party chung - (R) and (TM) - are the property of their respective owners. (C) 9888-5976 [employer]. All rights reserved. THIS TEST WAS PERFORMED AT: [employer] [facility] [address] [place] [address] TAMEKA JONES MD,PHD,REENA US abdomen comp w elastograp hy Reviewed date:10/23/2024 11:13:38 AM Interpretation: Performing Lab: Notes/Report: [address] [address] Ultrasound Report Signed Patient: Zack Dunn MR#: [id number] 2 : 1960 Acct:[id number] Age/Sex: 64 / M ADM Date: 10/03/24 Loc: HO.US Attending Dr: Dex Garsia MD Ordering Physician: Dex Garsia MD Date of Service: 10/03/24 Procedure(s): US abdomen comp w elastography Accession Number(s): [id number] cc: EduarMahnaz [facility]-; Dex Garsia MD EXAMINATION: US ABDOMEN [...] 10/06/24 0719 DD/ 1040 TD/TT: 10/03/24 1113 Personal Development Mentor: Pathology Reviewed date:06/18/2025 03:25:42 PM Interpretation: Performing Lab:[facility], [address] [place] [address], [place] [address] Notes/Report: Reason For Referral No Information Medications Medication SIG (Take, Route, Frequency, Duration) Notes Start Date End Date Status Methadone HCl 64 mg Concentrate 1 ml mixed with water as needed Orally Once a day Active Levothyroxine Sodium 75 MCG Capsule 1 capsule Orally Once a day Active Vitamin V17-Lxdpz Acid 500-400 MCG Tablet 1 Orally QD [...] W/U Status Risk Notes Problem Esophageal reflux (971267430) Esophageal reflux (K21.9) Active confirmed Problem Gastro-esophageal reflux disease without esophagitis (103267783) Gastro-esophageal reflux disease without esophagitis (K21.9) Active confirmed Problem Abdominal bloating (323275733) Abdominal bloating (R14.0) Active confirmed Problem Steele's esophagus (461637856) 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) Active confirmed Problem Steele's esophagus (310680635) 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) Active confirmed Problem Gastroesophageal reflux disease without esophagitis (368276945) Gastroesophageal reflux disease without esophagitis (K21.9) Active confirmed Problem Chronic hepatitis C (600442056) Chronic hepatitis C without hepatic coma (B18.2) Active confirmed Problem History of polyp of colon (situation) (068372597) History of colon polyps (Z86.010) Active confirmed Problem Screening for colon cancer (456035048) Screening for colon cancer (Z12.11) Active confirmed Problem Constipation (33087787) Constipation, unspecified constipation type (K59.00) Active confirmed Problem History of adenomatous polyp of colon (275368165) Hx of adenomatous colonic polyps (Z86.010) Active confirmed Problem Right upper quadrant pain (631620885) Abdominal pain, right upper quadrant (R10.11) Active confirmed Problem Steele esophagus (662191930) Steele esophagus (K22.70) Active confirmed Problem History of hepatitis C (31844850027917) History of hepatitis C (Z86.19) Active confirmed Problem Diarrhea (38442458) Diarrhea, unspecified type (R19.7) Active confirmed Problem History of gastrointestinal disease (163684734) History of chronic hepatitis (Z87.19) Active confirmed Problem Irritable bowel syndrome (04627984) Irritable bowel syndrome with both constipation and diarrhea (K58.2) Active confirmed Problem Diverticulosis of colon (763494956) Diverticulosis of colon (K57.30) Active confirmed Problem Family history of celiac disease (740864019) Family history of celiac disease (Z83.79) Active confirmed Problem Steele's esophagus (843013759) Steele''s esophagus without dysplasia (K22.70) Active confirmed Problem Hepatic fibrosis (disorder) (25800660) Liver fibrosis (K74.00) Active confirmed Vital Signs Blood pressure diastolic 11 mm Hg 10/23/2024 Height 68.5 in 10/23/2024 Blood pressure systolic 111 mm Hg 10/23/2024 Weight 176 lbs 10/23/2024 BMI 26.37 kg/m2 10/23/2024 Procedures Procedure Date Ordered Date Performed Result Body Sit e UPPER GI ENDOSCOPY 10/23/2024 N/A Encounters Encounter Location Date Provider Diagnosis [facility] Outpatient [address] [place] [id number] 01/19/2025 Dex Garsia Steele esophagus K22.70 ; Gastritis K29.70 and Hiatal hernia K44.9 [facility] [address] [place] [phone] 10/23/2024 Dex Garsia Liver fibrosis K74.0 0 ; Steele's esophagus with low grade dysplasia K22.710 ; History of hepatitis C Z86.19 ; Screening for colon cancer Z12.11 and Gastro-esophageal reflux disease without esophagitis K21.9 [facility] [address] [place] [phone] 08/18/2024 Dex Garsia Liver fibrosis K74.0 0 and History of chronic hepatitis Z87.19 [facility] [address] [place] [phone] 02/04/2025 Dex Garsia [facility] [address] [place] [phone] 06/18/2025 Dex Garsia [facility] [address] [place] [phone] 06/18/2025 Dex Garsia [facility] [address] [place] [phone] 06/24/2025 Dex Garsia Assessments Encounter Date Diagnosis [...] OF [place] [address] [place] [address] [id number] DANUTA ZACK Self - patient is the insured MEDICAID [facility] [address] [place] [address] [id number] DANUTA ZACK Self - patient is the [...] Substance abuse-last used Heroin in 2013 Denies FL,DM,CVA,renal disease Asthma Saw Dr. Marcelo in 06/2018 at [facility]--had an EGD with GERD(no esophagitis) and small area of Steele's esopghagus-biopsies negative for dysplasia, and a negative colonoscopy in 06/2018 Nephrotic syndrome - being s een by [facility] Merchandise Displayer Dr. Ann---s/p renal biopsy in 06/2021 at [facility] with a complication of a hematoma--hospitalized at [facility] Negative screening colonoscopy in March of [...]
--- OUTSIDE RECORDS SUMMARY | 2025-07-14 21:16 | XMS_ITS | Encounter Summary ---
Author Organization [employer] Address [address] [facility] [address] [place] [address] Care Team Providers Care Brass Plater Name Role Phone Unavailable Primary Care Provider Unavailabl e Encounter Details Date Type Department Care Team (Latest Contact Info) Description 06/02/2019 Abstract [facility] CONVERSIONS Dental, Provider, DDS Social History Tobacco [...]
--- OUTSIDE RECORDS SUMMARY | 2025-07-14 21:16 | XMS_ITS | Encounter Summary ---
Author Organization [facility] Address [address] [facility] [address] [place] [address] Care Team Providers Care Energy Efficiency Finance Manager Name Role Phone Unavailable Primary Care Provider Unavailabl e Reason for Visit * Reason Onset Date Comments referral pickling machine operator 05/22/2024 Encounter Details Date Type Department Care Team (Late st Contact Info) Description 05/22/2024 Telephone [facility] [address], [place] [phone] Mau Freeman, DMD [address] [place] [address] referral pickling machine operator Social History Tobacco Use Types Packs/Day [...] in because will be coming by to pickling machine operator referral scanned in on 05/20 for [facility]. Contacted [facility] hotel front desk agent and informed patient would be coming by for pickling machine operator DR documented in this encounter Plan of Treatment Not on file documented as of this encounter Visit Diagnoses Not on filedocumented in this encounter
== END 2025-07-14 15:21 | disposition home or self-care (01) ==
LOC: HO.HKA 14:58
PROVIDERS: Visit Provider Internal Medicine Hypertension Specialist
DX: N04.9 Nephrotic syndrome with unspecified morphologic changes (principal); N18.9 Chronic kidney disease, unspecified
CPT/HCPCS: 99214

== ENCOUNTER → 2025-07-14 14:57 | Outpatient (BNVA) | payer MEDICARE, SELFPAY | PROVIDERS: Visit Provider Internal Medicine Hypertension Specialist | DX: N04.9 Nephrotic syndrome with unspecified morphologic changes (principal); R80.9 Proteinuria, unspecified; I10 Essential (primary) hypertension; R60.9 Edema, unspecified; N18.9 Chronic kidney disease, unspecified | CPT/HCPCS: 99212 ==

== ENCOUNTER 2025-07-21 10:43 | Outpatient (AMB) | payer MEDICARE, MEDICAID, SELFPAY ==
--- OUTSIDE RECORDS SUMMARY | 2024-05-20 08:00 | XMS_ITS ---
Author Organization [facility] Address [address] [place] [address] Care Team Providers Care Incident Coordinator Name Role Phone Kostas Boone MD Primary Care Provider Vanessa Easton Unavailable [phone] Medications Medication SIG (Take, Route, Fr equency, Duration) Notes Start Date End Date Status Famotidine Active Levothyroxine Sodium Active Social History Tobacco Use: Social History Observation Description Date Details (start date - stop date) Former Smoker NA - NA Tobacco Use/Smoking Question Answer Notes Are you a: former smoker Additional Findings: Tobacco Non-User Current no n-smoker Alcohol Screen Question Answer Notes Did you have a drink containing alcohol in the p ast year? No Points 0 Interpretation Negative Tobacco use other than smoking: Question Answer Notes Are you an other tobacco user? No Vital Signs Height 5 ft 9 in in 05/20/2024 Weight 190 lbs 05/20/2024 BMI 28.06 kg/m2 05/20/2024 Encounters Encounter Location Date Provider Diagnosis [facility] [address] [place] [address] 05/20/2024 Vanessa Hartman Plan Of Treatment No Information Progress Notes * SHAUN KostasDOB:1960 (65 yo M)Acc No.[id number]:05/20/2024 Progress Notes Patient: Kostas NICHOLSON Provider: Candy Hartman DPM :1960 A ge:64 Y S ex:Male Date:05/20/2024 Address:[address], [id number] Pcp:Kostas Boone MD Subjective: * Chief Complaints: * * ROS: G eneral/Constitutional: Nausea d enies. V omiting d enies. H law Thirst d enies. L oss appetite d enies. C hills d enies. F atigue d enies.?Fever d enies. N ight Sweats d enies. U nexplained weight loss d enies. U nexplained weight gain d enies. H EENTM: Dentures d enies. D izziness d enies. G lasses/contacts d enies. R etinopathy d enies. B lurred/double vision d enies. T MJ?denies. D ischarge/drainage d enies. I mplants d enies. S ore throat d enies. D ental implants a dmits. H nicol of hearing d enies. D ifficulty chewing/swallowing/speaking d enies. N ose bleeds d enies. S ore mouth d enies. ? R espiratory: On Oxygen d enies. P neumonia/pleurisy d enies.?Bronchitis d enies. E mphysema d enies. C oughing d enies. C ough blood?denies. S hortness of breath d enies. W heezing d enies. C ardiovascular: Pacemaker d enies. M CDL A DRIVER d enies. W PW d enies. C HF d enies. H eart attack d enies. S eptal defect d enies. R apid beat d enies. C hest pain d enies. A trial Fib. d enies. M urmur/Palpitations d enies. G astrointestinal: Hemorrhoids a dmits. S tomach/Abdominal pain a dmits. D ark blood stool d enies. I rritable bowel a dmits. C onstipation a dmits. D iarrhea d enies. H ematology: Swelling d enies. C lots d enies. V aricose Veins d enies. B ruising d enies. B leeding problem d enies. G enitourinary: Blood urine d enies. F requent/Painfu/urination/bladder control d enies. K idney stones d enies. I nfection (UTI) d enies. N ephropathy d enies. s ex trans dis (STD) d enies. P rostate d enies. M usculoskeletal: Hammertoes d enies. B unions d enies. B ack Pain d enies. M uscle Cramps/ Resting d enies. M uscle cramps / walking d enies.?Generalized aches and pains d enies. W eakness d enies. I nteg.: Lua d enies. S cars d enies. C orns/calluses?admits. I ngrown nails d enies. P ainful nails d enies. O pen Sores d enies. R ashes a dmits. N eurologic: Difficulty sleeping d enies. B rain disorder d enies. N umbness a dmits. B alance trouble d enies. C onfusion d enies. F ainting/blackouts d enies. T ingling d enies. T remors d enies. * Medical History: B roken bones, Covid-19, Headaches/Migraines, Hepatitis, Kidney disease, Liver disease, Lyme disease, Thyroid, Chicken pox. * Family History: M other: . F ather: , kidney/liver disease. * Social History: T obacco Use: T obacco Use/Smoking A re you a: f ormer smoker A dditional Findings: Tobacco Non-User C urrent non-smoker Tobacco use other than smoking A re you an other tobacco user? N o D rugs/Alcohol: D rugs H ave you used drugs other than those for medical reasons in the past 12 months? N o Alcohol Screen D id you have a drink containing alcohol in the past year? N o P oints 0 I nterpretation N egative M iscellaneous: C affeine: no. Children: no. Exercise: yes, walking, exercise at home. Marital status: . Occupation: self employed. * Medications: T aking Levothyroxine Sodium , Taking Famotidine Objective: * Vitals: H t: 5 ft 9 in, Wt:190, BMI:28.06, Shoe size: 9.5, Ht-cm: 175.26 cm, Wt-k.18 kg. Assessment: Plan: * Treatment: * Images: * The named appointment provid er may or may not be the originator of this progress note, and it is not deemed complete until electronically signed by the appointment provider. Sign off status: Pending * Provider: Candy Hartman DPM Date: Generated for Rodney culver/Parvin/Sofi on: 09/21/2024 01:44 PM EST
--- OUTSIDE RECORDS SUMMARY | 2025-01-19 06:30 | XMS_ITS ---
Author Organization [facility] Address [address] [place] [address] Care Team Providers Care Embossing Toolsetter Name Role Phone Mahnaz Witt CNP Primary Care Provider Un available Dex Garsia Unavailable [phone] REASON FOR VISIT gerd,mcfarland's esophagus w/ low grade dysplasia Encounters Encounter Location Date Provider Diagnosis [facility] [place] Out[place] [address] [place], [place] [phone] 01/19/2025 Dex Garsia 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 ; Gastritis K29.70 and Hiatal hernia K44.9 Assessments Encounter Date Diagnosis (ICD Code) Assessment Notes Treatment Notes Treatment Clinical Notes Section Notes 01/19/2025 Mcfarland esophagus (ICD-10 - K22.70) 01/19/2025 Gastritis (ICD-10 - K29.70) 01/19/2025 Hiatal hernia (ICD-10 - K44.9) Plan Of Treatment No Information Progress Notes * ZACK TIPTONDOB:1960 (65 yo M)Acc No.[id number]:01/19/2025 EGD/MAC Patient: ZACK NICHOLSON Provider: Kerry Garsia MD :1960 A ge:65 Y S ex:Male Date:01/19/2025 Address: [address] [facility] Pcp:Mahnaz Witt CNP Subjective: * Chief Complaints: * G erd,mcfarland's esophagus w/ low grade dysplasia Assessment: * Assessment: 1. 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 G astritis - K29.70 3 . H iatal hernia - K44.9 Plan: * Procedure Codes: 4 3239 UPPER GI ENDOSCOPY, BIOPSY Billing Information: * Procedure Codes: 47031 UPPER GI ENDOSCOPY, BIOPSY. * The named appointment provid er may or may not be the originator of this progress note, and it is not deemed complete until electronically signed by the appointment provider. Sign off status: Pending * Provider: Kerry Garsia MD Date: 0 01/19/2025 Generated for Rodeny culver/Parvin/Toneyitting on: 09/21/2024 01:44 PM EST
--- NOTE | 2025-07-21 10:44 | MHC.OFFVIS ---
Vital Signs 07/21/25 10:52 Height 5 ft 9 in Weight 186 lb BMI 27.5 Pulse 67 Pulse Source Pulse Oximeter Pulse Oximetry (%) 98 Oxygen Delivery Method Room Air Intake Visit Reasons: 3m Allergies No Known Allergies Allergy (Mild, Verified 07/14/25 15:00) NOT APPLICABLE HPI Comments Details: Kostas is a 65-year-old male patient with a past medical history of asthma, nephrotic syndrome, hypothyroidism, and hepatitis-C who has been seeing Dr. Mccarthy for headache management. It appears that he was seen on 04/29/2025 for migraine at which time he was prescribed propranolol for migraine prevention and sumatriptan 100 mg for as-needed therapy. The patient tells me today that he had cluster headaches in his teen/20s which resolved for some time and then restarted in his 50s. Headaches have overall in the last several years improved some but he is now experiencing episodic migraine which can vary in frequency and intensity. He was averaging a proximally 3 times per week with migraines lasting 12 hours if left unmedicated. Over the course of the last month or so he has gone a proximally 3 weeks or more without a migraine-type headache. Because of this, he never did start the propranolol that was prescribed at last visit as he does not feel that he needs a preventive therapy. When he takes his sumatriptan, his headache resolves in approximately 2 hours. He has however been breaking his 100 mg tablet to take only a 50 mg dose. His typical headache is described as pain to the left retro-orbital area that is sharp and throbbing. He does have accompanying fatigue and dizziness as well as photophobia and sonophobia but he denies any nausea or vomiting. He has been recently on prednisone for treatment of his underlying kidney disease. With this, he has noticed an increase in his blood pressure at times. Prior to this, it has been running low. [facility] Medical History (Updated 07/21/25 @ 11:18 by Deidre De La Paz CNP) Nephrotic syndrome Nephrotic syndrome Asthma Substance abuse Depression Thyroiditis Chronic hepatitis C Hypothyroidism BPH (benign prostatic hyperplasia) Elevated PSA Surgical History History of liver biopsy History of biopsy of kidney H/O colonoscopy H/O esophagogastroduodenoscopy History of prostate surgery Social History Household Members: Spouse Patient Tobacco Use Status: Former Tobacco user Tobacco use type: Cigarette Review of Systems Const All systems reviewed & are unremarkable except as noted in HPI and below Physical Exam Vital Signs: Last Vital Signs Pulse 67 07/21/25 10:52 Pulse Ox 98 07/21/25 10:52 Oxygen Delivery Method Room Air 07/21/25 10:52 BMI result Body Mass Index 27.5 Const General: cooperative, healthy appearing, comfortable and no acute distress Nutritional Appearance: well nourished Orientation/consciousness: patient oriented x3 Limitations: no limitations HEENT Head: Yes normal to inspection and Yes normocephalic Eyes General: appearance normal, both eyes and all related structures Visual Quezada: normal visual quezada by confrontation Alignment and Position: alignment normal Periorbital: periorbital findings normal Eyelids: Yes eyelids normal Conjunctivae: conjunctivae normal Sclerae: sclerae normal Direct Ophthalmoscopy: normal light reflex, no papilledema and fundi normal bilaterally Neuro General: patient oriented x3 Cranial nerves: Yes CN's II-XII intact bilaterally and Yes Facial sensation intact/muscles of mastication intact Cognition (Neuro): normal cognition Gait exam (Neuro): Normal gait present Motor exam (neuro): no tremor noted Sensory Exam: double simultaneous stimulation for sensation normal Romberg Test: Negative Pupils: Normal pupillary reactivity/response: bilateral Psych Appearance: grossly normal Mental Status: mental status grossly normal Speech and movement: Normal speech and movement present and Clear speech present Affect: normal affect Attitude: cooperative Thought process: Normal thought process present Thought content: Normal thought content present Insight: Good insight present (Psych) Judgement: Good judgement present (Psych) Assessment & Plan Assessment & Plan (1) Migraine without aura and without status migrainosus, not intractable: Code(s): G43.009 - Migraine without aura, not intractable, without status migrainosus Category: Medical Plan Kostas is a 65-year-old male patient with a past medical history of asthma, nephrotic syndrome, hypothyroidism, and hepatitis-C who has been seeing Dr. Mccarthy for headache management. The patient was slightly upset to be seen by another provider today but overall the visit went well. He does not wish to go on any preventive therapy at this time as his headaches have slowed down in frequency. Of note however, he is taking Co Q10 which has been supported for migraine prevention. Sumatriptan has been working well for him but he has been taking only half of a tablet (total of 50 mg each dose). He had rarely will take a 2nd dose. The sumatriptan helps within 2 hours to get rid of his headache. He is happy with this option. I will advise however that we should monitor his blood pressure moving forward as he is on prednisone which can increase the blood pressure creating a higher stroke risk with use of the sumatriptan. He has been monitoring at home and his blood pressure today was okay. The patient does wish to see Dr. Mccarthy 1 more time before he retires and then he will transition his care over to me. -continue sumatriptan 50 mg as needed for abortive therapy -patient would like to hold on any new preventives at this time Medications: New sumatriptan succinate take 1 tab at onset of headache; if no relief may repeat 1 tab after at least 2 hrs; max = 4 tabs/24 hr PO 20 tabs 5RF Discontinued sumatriptan succinate Discontinued Reason: Doctor's Order 100 mg orally at onset of migraine. May repeat in 2hrs. Max 2/ 24 hrs PRN; 30 days 9 tabs 8RF migraine headache Coding Level of Care Code Est Pt Level 3 (58423) Diagnoses Migraine without aura and without status migrainosus, not intractable G43.009
[2025-07-21 10:52] VITALS: PULSE 67; O2SAT 98; BMI 27.5
--- OUTSIDE RECORDS SUMMARY | 2025-07-21 13:44 | XMS_ITS | Patient Health Record ---
Author Organization [facility] [place] Address [address] [place] [address] Care Team Providers Care Retail Inventory Control Clerk Name Role Phone Kostas Boone MD Primary Care Provider Unavaila Vanessa Crooks Unavailable [phone] Allergies No Known Allergies Reason For Referral [...] Provider Diagnosis [facility] [address] [place] [address] 09/02/2024 Vanessa Hartman Tinea pedis of both [...] Inc [address] [place] [address] [id number] Kostas Dunn Self - patient is the insured Medical (General) History Medical History History ICD Code Broken bones covid-19 Headaches/Migraines Hepatitis Kidney disease Liver disease Lyme disease thyroid Chicken pox Surgical History Surgery Date(Month/Year) colonoscopy wisdom teeth extraction
--- OUTSIDE RECORDS SUMMARY | 2025-07-21 13:45 | XMS_ITS | Patient Health Record ---
Author Organization [facility] Address [address] [place] [address] Care Team Providers Care Underground Mine Machinery Mechanic Name Role Phone Mahnaz Witt CNP Primary Care Provider Un available Ady Dex Unavailable [phone] Allergies No Known Allergies Results Component Value Reference Range Flag Notes Complete Blood Count Auto Di ff Reviewed date:10/03/2024 05:18:21 PM Interpretation: Performing Lab:[facility], [address] [place] [phone] Notes/Report: White Blood Count 4.4 4.8-10.8 X10*3/uL [...] INR Reviewed date:10/03/2024 05:18:31 PM Interpretation: Performing Lab:[address] [address] Notes/Report: Prothrombin Time 11.7 10.9-12.4 SEC N [...] Panel Reviewed date:10/03/2024 05:18:43 PM Interpretation: Performing Lab:[address] [address] Notes/Report: Bilirubin Total 0.8 0.0-1.0 mg/dL N Bilirubin Direct 0.3 0.0-0.5 mg/dL N Aspartate Amino Transferase 30 5-37 U/L N Alanine Aminotransferase 17 0-40 U/L N Total Protein 7.8 6.5-8.0 g/dL N Albumin Level 4.3 3.5-5.0 g/dL N Alkaline Phosphatase 81 39-117 U/L N Alpha Fetoprotein Reviewed date:10/09/2024 10:14:28 AM Interpretation: Performing Lab:[address] [address] Notes/Report: Alpha Fetoprotein 0.9 <6.1 ng/mL N This test was performed using the Cruzito Gladstone chemiluminescent method. Values obtained from different assay methods cannot be used interchangeably. AFP levels, regardless of value, should not be interpreted as absolute evidence of the presence or absence of disease. THIS TEST WAS PERFORMED AT: [facility] [address] [place] [phone] ERI WATTS MD Liver Fibrosis Pnl Reviewed date:10/09/2024 10:14:19 AM Interpretation: Performing Lab:[facility], [address] [place] [address] Notes/Report: Liver Fibrosis Score 0.44 Liver Fibrosis [...] a>0.62 and a<=1.00 : A3 (severe activity) NTL-Fkewf-6-Macroglobulin 430 106-279 mg/dL A FIB-Haptoglobin 114 43-212 mg/dL FIB-Apolipoprotein A1 205 94-176 mg/dL A FIB-Total Bilirubin 0.6 0.2-1.2 mg/dL FIB-GGT 12 3-70 U/L FIB-ALT 15 9-46 U/L Reference ID [id number] Footnote SEE NOTE The reliability of results [...] The performance characteristics have been determined by [facility]. It has not been cleared or approved by the U.S. Food and Drug Administration. Performance characteristics refer to the analytical performance of the test. [employer] the associated logo, Five Apes and all associated BlueSprig chung are the registered trademarks of [employer]. All third green party chung - (R) and (TM) - are the property of their respective owners. (C) 6631-2974 BlueSprig Incorporated. All rights reserved. THIS TEST WAS PERFORMED AT: [facility] [facility] [place] [address] [place] [address] TAMEKA JONES MD,PHD,REENA US abdomen comp w elastograp hy Reviewed date:10/23/2024 11:13:38 AM Interpretation: Performing Lab: Notes/Report: [address] [address] Ultrasound Report Signed Patient: Zack Dunn MR#: [id number] 2 : 1960 Acct:[id number] Age/Sex: 64 / M ADM Date: 10/03/24 Loc: HO.US Attending Dr: Dex Garsia MD Ordering Physician: Dex Garsia MD Date of Service: 10/03/24 Procedure(s): US abdomen comp w elastography Accession Number(s): [id number] cc: EduarMahnaz M [facility], [facility]-; Dex Garsia MD EXAMINATION: US ABDOMEN [...] 10/06/24 0719 DD/ 1040 TD/TT: 10/03/24 1113 Yard Jacker: Pathology Reviewed date:06/18/2025 03:25:42 PM Interpretation: Performing Lab:[facility], [address] [place] [address], [place] [address] Notes/Report: Reason For Referral No Information Medications Medication SIG (Take, Route, Frequency, Duration) Notes Start Date End Date Status Methadone HCl 64 mg Concentrate 1 ml mixed with water as needed Orally Once a day Active Levothyroxine Sodium 75 MCG Capsule 1 capsule Orally Once a day Active Vitamin D54-Xaqhn Acid 500-400 MCG Tablet 1 Orally QD [...] W/U Status Risk Notes Problem Esophageal reflux (197414852) Esophageal reflux (K21.9) Active confirmed Problem Gastro-esophageal reflux disease without esophagitis (667505045) Gastro-esophageal reflux disease without esophagitis (K21.9) Active confirmed Problem Abdominal bloating (079013111) Abdominal bloating (R14.0) Active confirmed Problem Steele's esophagus (670533483) 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) Active confirmed Problem Steele's esophagus (795095915) 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) Active confirmed Problem Gastroesophageal reflux disease without esophagitis (976766156) Gastroesophageal reflux disease without esophagitis (K21.9) Active confirmed Problem Chronic hepatitis C (222347526) Chronic hepatitis C without hepatic coma (B18.2) Active confirmed Problem History of polyp of colon (situation) (669957101) History of colon polyps (Z86.010) Active confirmed Problem Screening for colon cancer (296265966) Screening for colon cancer (Z12.11) Active confirmed Problem Constipation (60042659) Constipation, unspecified constipation type (K59.00) Active confirmed Problem History of adenomatous polyp of colon (810537293) Hx of adenomatous colonic polyps (Z86.010) Active confirmed Problem Right upper quadrant pain (038063173) Abdominal pain, right upper quadrant (R10.11) Active confirmed Problem Steele esophagus (364435356) Steele esophagus (K22.70) Active confirmed Problem History of hepatitis C (55047644920045) History of hepatitis C (Z86.19) Active confirmed Problem Diarrhea (04159507) Diarrhea, unspecified type (R19.7) Active confirmed Problem History of gastrointestinal disease (637234254) History of chronic hepatitis (Z87.19) Active confirmed Problem Irritable bowel syndrome (91469761) Irritable bowel syndrome with both constipation and diarrhea (K58.2) Active confirmed Problem Diverticulosis of colon (183286114) Diverticulosis of colon (K57.30) Active confirmed Problem Family history of celiac disease (444275223) Family history of celiac disease (Z83.79) Active confirmed Problem Steele's esophagus (008192422) Steele''s esophagus without dysplasia (K22.70) Active confirmed Problem Hepatic fibrosis (disorder) (27305290) Liver fibrosis (K74.00) Active confirmed Vital Signs Blood pressure diastolic 11 mm Hg 10/23/2024 Height 68.5 in 10/23/2024 Blood pressure systolic 111 mm Hg 10/23/2024 Weight 176 lbs 10/23/2024 BMI 26.37 kg/m2 10/23/2024 Procedures Procedure Date Ordered Date Performed Result Body Sit e UPPER GI ENDOSCOPY 10/23/2024 N/A Encounters Encounter Location Date Provider Diagnosis [facility] Outpatient [address] [place] [id number] 01/19/2025 Dex Garsia Steele esophagus K22.70 ; Gastritis K29.70 and Hiatal hernia K44.9 [facility] [address] [place] [phone] 10/23/2024 Dex Garsia Liver fibrosis K74.0 0 ; Steele's esophagus with low grade dysplasia K22.710 ; History of hepatitis C Z86.19 ; Screening for colon cancer Z12.11 and Gastro-esophageal reflux disease without esophagitis K21.9 [facility] [address] [place] [phone] 08/18/2024 Dex Garsia Liver fibrosis K74.0 0 and History of chronic hepatitis Z87.19 [facility] [address] [place] [phone] 02/04/2025 Dex Garsia [facility] [address] [place] [phone] 06/18/2025 Dex Garsia [facility] [address] [place] [phone] 06/18/2025 Dex Garsia [facility] [address] [place] [phone] 06/24/2025 Dex Garsia Assessments Encounter Date Diagnosis [...] OF [place] [address] [place] [address] [id number] DANUTA ZACK Self - patient is the insured [facility] [address] [place] [phone] [id number] DANUTA ZACK Self - patient is the [...] Asthma Saw Dr. Marcelo in 06/2018 at [facility]--had an EGD with GERD(no esophagitis) and small area of Steele's esopghagus-biopsies negative for dysplasia, and a negative colonoscopy in 06/2018 Nephrotic syndrome - being s een by [facility] Revenue Enforcement Agent Dr. Ann---s/p renal biopsy in 06/2021 at [facility] with a complication of a hematoma--hospitalized at [facility] Negative screening colonoscopy in March of [...]
--- OUTSIDE RECORDS SUMMARY | 2025-07-21 13:45 | XMS_ITS | Encounter Summary ---
Author Organization [employer] Address [address] [facility] 7t [place] [address] Care Team Providers Care Minor League Baseball Player Name Role Phone Unavailable Primary Care Provider Unavailabl e Reason for Visit * Reason Onset Date Comments returned call insurance inactive 05/06/2025 Encounter Details Date Type Department Care Team (Late st Contact Info) Description 05/06/2025 Telephone [facility] [address] [place], [place] [phone] Vignesh Thompson, DMD [address] [place], [place] [phone] returned call insurance inactive Social History Tobacco [...]
--- OUTSIDE RECORDS SUMMARY | 2025-07-21 13:45 | XMS_ITS | Encounter Summary ---
Author Organization [employer] Address [address] [facility] 7t [place] [address] Care Team Providers Care Pattern Setter Name Role Phone Unavailable Primary Care Provider Unavailabl e Encounter Details Date Type Department Care Team (Latest Contact Info) Description 06/02/2019 Abstract [facility] CONVERSIONS Dental, Provider, DDS Social History Tobacco [...]
--- OUTSIDE RECORDS SUMMARY | 2025-07-21 13:45 | XMS_ITS | Encounter Summary ---
Author Organization [employer] Address [address] [facility] 7t [place] [address] Care Team Providers Care Bulk Sealer Operator Name Role Phone Unavailable Primary Care Provider Unavailabl e Reason for Visit * Reason Onset Date Comments referral pecan picker 05/22/2024 Encounter Details Date Type Department Care Team (Late st Contact Info) Description 05/22/2024 Telephone [facility] ADULT DENTAL [address] [place], [place] [phone] Mau Freeman, DMD [address] [place] [address] referral pecan picker Social History Tobacco Use Types Packs/Day [...] in because will be coming by to pecan picker referral scanned in on 05/20 for [facility]. Contacted [facility] senior front end web developer and informed patient would be coming by for pecan picker DR documented in this encounter Plan of Treatment Not on file documented as of this encounter Visit Diagnoses Not on filedocumented in this encounter
--- OUTSIDE RECORDS SUMMARY | 2025-07-21 13:45 | XMS_ITS | Clinical Summary ---
Author Organization [employer] Address [address] [facility] 7t [place] [address] Care Team Providers Care Flight Crew Scheduler Name Role Phone Unavailable Primary Care Provider [...] Care Team Description 05/06/2025 Telephone [facility] ADULT DENTAL [address] [place] [address] Vignesh Thompson DMD returned call insurance inactive [...] Recently Relevant to Health Maintenance Insurance MEDICARE D[facility]AL-[facility] MEDICAID [facility] ADULT
== END 2025-07-21 11:10 | disposition home or self-care (01) ==
LOC: HO.HSM 10:43
PROVIDERS: Visit Provider Nurse Practitioner
DX: G43.009 Migraine without aura, not intractable, without status migrainosus (principal)
CPT/HCPCS: 99213

== ENCOUNTER → 2025-07-21 10:43 | Outpatient (BNVA) | payer MEDICARE, SELFPAY | PROVIDERS: Visit Provider Nurse Practitioner | DX: G43.009 Migraine without aura, not intractable, without status migrainosus (principal); Z79.899 Other long term (current) drug therapy | CPT/HCPCS: 99212 ==

== ENCOUNTER 2025-08-03 12:26 | Outpatient (REF) | payer MEDICARE, SELFPAY ==
--- OUTSIDE RECORDS SUMMARY | 2024-05-20 08:00 | XMS_ITS ---
Author Organization [facility] Address [address] [place] [address] Care Team Providers Care Pipe Organ Mechanic Name Role Phone Kostas Boone MD Primary Care Provider Vanessa Easton Unavailable [phone] Medications Medication SIG (Take, Route, Fr equency, [...] 05/20/2024 Encounters Encounter Location Date Provider Diagnosis [facility] [address] [place] [address] 05/20/2024 Vanessa Hartman Plan Of Treatment No Information Progress Notes * SHAUN KostasDOB:1960 (65 yo M)Acc No.[id number]:05/20/2024 Progress Notes Patient: Kostas NICHOLSON Provider: Candy Hartman DPM :1960 A ge:64 Y S ex:Male Date:05/20/2024 Address:[address], [id number] Pcp:Kostas Boone MD Subjective: * Chief Complaints: [...] enies. C ardiovascular: Pacemaker d enies. M GLAZING MACHINE OPERATOR d enies. W PW d enies. C [...] DPM Date: Generated for Rodney culver/Parvin/Sofi on: 02:25 PM EST
--- OUTSIDE RECORDS SUMMARY | 2025-01-19 06:30 | XMS_ITS ---
Author Organization [facility] Address [address] [place] [address] Care Team Providers Care Quantitative Analyst Name Role Phone Mahnaz Witt CNP Primary Care Provider Un available Dex Garsia Unavailable [phone] REASON FOR VISIT gerd,mcfarland's esophagus w/ low grade dysplasia Encounters Encounter Location Date Provider Diagnosis [facility] [place] [address] [place], [place] [phone] 01/19/2025 Dex Garsia 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 ; Gastritis K29.70 and Hiatal hernia K44.9 Assessments Encounter Date Diagnosis (ICD Code) Assessment Notes Treatment Notes Treatment Clinical Notes Section Notes 01/19/2025 Mcfarland esophagus (ICD-10 - K22.70) 01/19/2025 Gastritis (ICD-10 - K29.70) 01/19/2025 Hiatal hernia (ICD-10 - K44.9) Plan Of Treatment No Information Progress Notes * ZACK TIPTONDOB:1960 (65 yo M)Acc No.[id number]:01/19/2025 EGD/MAC Patient: ZACK NICHOLSON Provider: Kerry Garsia MD :1960 A ge:65 Y S ex:Male Date:01/19/2025 Address: [place] [address] [facility] Pcp:Mahnaz Witt CNP Subjective: * Chief Complaints: * G erd,mcfarland's esophagus w/ low grade dysplasia Assessment: * Assessment: 1. 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 G astritis - K29.70 3 . H iatal hernia - K44.9 Plan: * Procedure Codes: 4 3239 UPPER GI ENDOSCOPY, BIOPSY Billing Information: * Procedure Codes: 66620 UPPER GI ENDOSCOPY, BIOPSY. * The named appointment provid er may or may not be the originator of this progress note, and it is not deemed complete until electronically signed by the appointment provider. Sign off status: Pending * Provider: Kerry Garsia MD Date: 0 01/19/2025 Generated for Rodney culver/Parvin/Toneyitting on: 02:24 PM EST
[2025-08-03 13:08] LABS: Hematocrit 46.5 % (42.0-52.0); Hemoglobin 14.7 g/dl (14.0-18.0); Mean Corpuscular HGB Conc 31.6 g/dl (31.0-36.0); Mean Corpuscular Hemoglobin 30.3 pg (27.0-33.0); Mean Corpuscular Volume 95.9 fL (80.0-98.0); NRBC Abs Auto 0.000 X10*3/uL (0.0-0.012); NRBC Pct Auto 0.0 /100WBC (0.0-0.2); Platelet Count 200 X10*3/uL (160-400); Red Blood Count 4.85 X10*6/uL (4.60-5.80); White Blood Count 11.1 X10*3/uL (4.8-10.8)
[2025-08-03 13:32] LABS: Anion Gap 13 (12-20); Blood Urea Nitrogen 35 mg/dL (9-16); Calcium 9.8 mg/dL (8.4-10.2); Carbon Dioxide 33 mmol/L (22-29); Chloride 101 mmol/L (96-108); Estimated Glomerular Filt Rate > 60; Potassium 5.0 mmol/L (3.3-5.1); Sodium 142 mmol/L (135-145)
--- OUTSIDE RECORDS SUMMARY | 2025-08-03 14:24 | XMS_ITS | Clinical Summary ---
Author Organization [employer] Address [address] [facility] 7t [place] [address] Care Team Providers Care Metal Organ Pipe Maker Name Role Phone Unavailable Primary Care Provider [...] Type Department Care Team Description 05/06/2025 Telephone [facility] ADULT DENTAL [address] [place] [address] Vignesh Thompson DMD returned call insurance inactive [...] Recently Relevant to Health Maintenance Insurance MEDICARE [facility] MEDICAID [facility] ADULT
--- OUTSIDE RECORDS SUMMARY | 2025-08-03 14:24 | XMS_ITS | Encounter Summary ---
Author Organization [employer] Address [address] [facility] 7t [place] [address] Care Team Providers Care Event Coordinator Marketing And Sales Name Role Phone Unavailable Primary Care Provider Unavailabl e Reason for Visit * Reason Onset Date Comments returned call insurance inactive 05/06/2025 Encounter Details Date Type Department Care Team (Late st Contact Info) Description 05/06/2025 Telephone [facility] [address] [place], [place] [phone] Vignesh Thompson, DMD [address] [place], [place] [phone] returned call insurance inactive Social History Tobacco [...]
--- OUTSIDE RECORDS SUMMARY | 2025-08-03 14:24 | XMS_ITS | Encounter Summary ---
Author Organization [employer] Address [address] [facility] 7t [place] [address] Care Team Providers Care Operational Risk Consultant Name Role Phone Unavailable Primary Care Provider Unavailabl e Reason for Visit * Reason Onset Date Comments referral shredder picker 05/22/2024 Encounter Details Date Type Department Care Team (Late st Contact Info) Description 05/22/2024 Telephone [facility] ADULT DENTAL [address] [place], [place] [phone] Mau Freeman, DMD [address] [place] [address] referral shredder picker Social History Tobacco Use Types Packs/Day [...] in because will be coming by to shredder picker referral scanned in on 05/20 for [facility]. Contacted [facility] front maker and informed patient would be coming by for shredder picker DR documented in this encounter Plan of Treatment Not on file documented as of this encounter Visit Diagnoses Not on filedocumented in this encounter
--- OUTSIDE RECORDS SUMMARY | 2025-08-03 14:25 | XMS_ITS | Patient Health Record ---
Author Organization [facility] Address [address] [place] [address] Care Team Providers Care Reporting Coordinator Name Role Phone Mahnaz Witt CNP Primary Care Provider Un available Ady Dex Unavailable [phone] Allergies No Known Allergies Results Component Value Reference Range Flag Notes Complete Blood Count Auto Di ff Reviewed date:10/03/2024 05:18:21 PM Interpretation: Performing Lab:[facility], [address] [place] [phone] Notes/Report: White Blood Count 4.4 4.8-10.8 X10*3/uL [...] INR Reviewed date:10/03/2024 05:18:31 PM Interpretation: Performing Lab:[address] [address] Notes/Report: Prothrombin Time 11.7 10.9-12.4 SEC N [...] Panel Reviewed date:10/03/2024 05:18:43 PM Interpretation: Performing Lab:[address] [address] Notes/Report: Bilirubin Total 0.8 0.0-1.0 mg/dL N Bilirubin Direct 0.3 0.0-0.5 mg/dL N Aspartate Amino Transferase 30 5-37 U/L N Alanine Aminotransferase 17 0-40 U/L N Total Protein 7.8 6.5-8.0 g/dL N Albumin Level 4.3 3.5-5.0 g/dL N Alkaline Phosphatase 81 39-117 U/L N Alpha Fetoprotein Reviewed date:10/09/2024 10:14:28 AM Interpretation: Performing Lab:[address] [address] Notes/Report: Alpha Fetoprotein 0.9 <6.1 ng/mL N This test was performed using the Cruzito Repton chemiluminescent method. Values obtained from different assay methods cannot be used interchangeably. AFP levels, regardless of value, should not be interpreted as absolute evidence of the presence or absence of disease. THIS TEST WAS PERFORMED AT: [facility] [address] [place] [phone] ERI WATTS MD Liver Fibrosis Pnl Reviewed date:10/09/2024 10:14:19 AM Interpretation: Performing Lab:[facility], [address] [place] [phone] Notes/Report: Liver Fibrosis Score 0.44 Liver Fibrosis [...] a>0.62 and a<=1.00 : A3 (severe activity) ARC-Jgffq-4-Macroglobulin 430 106-279 mg/dL A FIB-Haptoglobin 114 43-212 mg/dL FIB-Apolipoprotein A1 205 94-176 mg/dL A FIB-Total Bilirubin 0.6 0.2-1.2 mg/dL FIB-GGT 12 3-70 U/L FIB-ALT 15 9-46 U/L Reference ID [id number] Footnote SEE NOTE The reliability of results [...] The performance characteristics have been determined by [facility]. It has not been cleared or approved by the U.S. Food and Drug Administration. Performance characteristics refer to the analytical performance of the test. Citymaps, the associated logo, Pace4Life and all associated ViewRay chung are the registered trademarks of [employer]. All third green party chung - (R) and (TM) - are the property of their respective owners. (C) 5717-2350 [employer] Incorporated. All rights reserved. THIS TEST WAS PERFORMED AT: [employer] [facility] [address] [place] [address] TAMEKA JONES MD,PHD,REENA US abdomen comp w elastograp hy Reviewed date:10/23/2024 11:13:38 AM Interpretation: Performing Lab: Notes/Report: [address] [address] Ultrasound Report Signed Patient: Zack Dunn MR#: [id number] 2 : 1960 Acct:[id number] Age/Sex: 64 / M ADM Date: 10/03/24 Loc: HO.US Attending Dr: Dex Garsia MD Ordering Physician: Dex Garsia MD Date of Service: 10/03/24 Procedure(s): US abdomen comp w elastography Accession Number(s): [id number] cc: EduarMahnaz [facility]-; Dex Garsia MD EXAMINATION: US [...] 10/06/24 0719 DD/ 1040 TD/TT: 10/03/24 1113 Reliability Technician: Pathology Reviewed date:06/18/2025 03:25:42 PM Interpretation: Performing Lab:[facility], [address] [place] [address], [place] [address] Notes/Report: Reason For Referral No Information Medications Medication SIG (Take, Route, Frequency, Duration) Notes Start Date End Date Status Methadone HCl 64 mg Concentrate 1 ml mixed with water as needed Orally Once a day Active Levothyroxine Sodium 75 MCG Capsule 1 capsule Orally Once a day Active Vitamin V20-Ebsbh Acid 500-400 MCG Tablet 1 Orally QD [...] W/U Status Risk Notes Problem Esophageal reflux (412013244) Esophageal reflux (K21.9) Active confirmed Problem Gastro-esophageal reflux disease without esophagitis (447706336) Gastro-esophageal reflux disease without esophagitis (K21.9) Active confirmed Problem Abdominal bloating (422840895) Abdominal bloating (R14.0) Active confirmed Problem Steele's esophagus (849443019) 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) Active confirmed Problem Steele's esophagus (055266940) 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) Active confirmed Problem Gastroesophageal reflux disease without esophagitis (270068155) Gastroesophageal reflux disease without esophagitis (K21.9) Active confirmed Problem Chronic hepatitis C (720464677) Chronic hepatitis C without hepatic coma (B18.2) Active confirmed Problem History of polyp of colon (situation) (970813277) History of colon polyps (Z86.010) Active confirmed Problem Screening for colon cancer (661006439) Screening for colon cancer (Z12.11) Active confirmed Problem Constipation (66796946) Constipation, unspecified constipation type (K59.00) Active confirmed Problem History of adenomatous polyp of colon (067412361) Hx of adenomatous colonic polyps (Z86.010) Active confirmed Problem Right upper quadrant pain (608413172) Abdominal pain, right upper quadrant (R10.11) Active confirmed Problem Steele esophagus (739170220) Steele esophagus (K22.70) Active confirmed Problem History of hepatitis C (44878788188365) History of hepatitis C (Z86.19) Active confirmed Problem Diarrhea (17478840) Diarrhea, unspecified type (R19.7) Active confirmed Problem History of gastrointestinal disease (888368190) History of chronic hepatitis (Z87.19) Active confirmed Problem Irritable bowel syndrome (98839407) Irritable bowel syndrome with both constipation and diarrhea (K58.2) Active confirmed Problem Diverticulosis of colon (632667337) Diverticulosis of colon (K57.30) Active confirmed Problem Family history of celiac disease (854711002) Family history of celiac disease (Z83.79) Active confirmed Problem Steele's esophagus (732947834) Steele''s esophagus without dysplasia (K22.70) Active confirmed Problem Hepatic fibrosis (disorder) (10552923) Liver fibrosis (K74.00) Active confirmed Vital Signs Blood pressure diastolic 11 mm Hg 10/23/2024 Height 68.5 in 10/23/2024 Blood pressure systolic 111 mm Hg 10/23/2024 Weight 176 lbs 10/23/2024 BMI 26.37 kg/m2 10/23/2024 Procedures Procedure Date Ordered Date Performed Result Body Sit e UPPER GI ENDOSCOPY 10/23/2024 N/A Encounters Encounter Location Date Provider Diagnosis [facility] Outpatient [address] [place] [id number] 01/19/2025 Dex Garsia Steele esophagus K22.70 ; Gastritis K29.70 and Hiatal hernia K44.9 [facility] [address] [place] [phone] 10/23/2024 Dex Garsia Liver fibrosis K74.0 0 ; Steele's esophagus with low grade dysplasia K22.710 ; History of hepatitis C Z86.19 ; Screening for colon cancer Z12.11 and Gastro-esophageal reflux disease without esophagitis K21.9 [facility] [address] [place] [phone] 08/18/2024 Dex Garsia Liver fibrosis K74.0 0 and History of chronic hepatitis Z87.19 [facility] [address] [place] [phone] 02/04/2025 Dex Garsia [facility] [address] [place] [phone] 06/18/2025 Dex Garsia [facility] [address] [place] [phone] 06/18/2025 Dex Garsia [facility] [address] [place] [phone] 06/24/2025 Dex Garsia Assessments Encounter Date Diagnosis [...] OF [place] [address] [place] [address] [phone] [id number] DANUTA ZACK Self - patient is the insured [facility]ICAID [facility] [address] [place] [phone] [id number] DANUTA ZACK Self - patient is the [...] Substance abuse-last used Heroin in 2013 Denies [place],DM,CVA,renal disease Asthma Saw Dr. Marcelo in 06/2018 at [facility]--had an EGD with GERD(no esophagitis) and small area of Steele's esopghagus-biopsies negative for dysplasia, and a negative colonoscopy in 06/2018 Nephrotic syndrome - being s een by [facility] Building Principal Dr. Ann---s/p renal biopsy in 06/2021 at [facility] with a complication of a hematoma--hospitalized at [...]
--- OUTSIDE RECORDS SUMMARY | 2025-08-03 14:25 | XMS_ITS | Encounter Summary ---
Author Organization [facility] Address [address] [place] [address] Phone Care Team Providers Care Sampler Radioactive Waste Name Role Phone Marcell Moya MD Primary Care Provider Encounter Details Date Type Department Care Team (Late st Contact Info) Description 02/18/2021 Orders Only [facility] [address] [place] [phone] Melvin Torres MD [address] [place] [address], [address] [address] Nephrotic syndrome with minor glomerular abnormality Social [...] abnormality documented in this encounter Care Teams Sampler Radioactive Waste Relationship Specialty Start Date End Date Marcell Moya MD [facility] EDENILSON COLLAZO [place] PCP - General Internal Medicine 12/17/20 documented as of this encounter
--- OUTSIDE RECORDS SUMMARY | 2025-08-03 14:25 | XMS_ITS | Patient Health Record ---
Author Organization [facility] [place] Address [address] [place] [address] Care Team Providers Care Angular Developer Name Role Phone Kostas Boone MD Primary Care Provider Unavaila Vanessa Crooks Unavailable [phone] Allergies No Known Allergies Reason For Referral [...] 09/02/2024 Encounters Encounter Location Date Provider Diagnosis [facility] [address] [place] [address] 09/02/2024 Vanessa Hartman Tinea pedis of both [...] Inc [address] [place] [address] [id number] Kostas Dunn Self - patient is the insured Medical (General) History Medical History History ICD Code Broken bones covid-19 Headaches/Migraines Hepatitis Kidney disease Liver disease Lyme disease thyroid Chicken pox Surgical History Surgery Date(Month/Year) colonoscopy wisdom teeth extraction
--- OUTSIDE RECORDS SUMMARY | 2025-08-03 14:25 | XMS_ITS | Encounter Summary ---
Author Organization [facility] Address [address] [place] [address] Phone Care Team Providers Care Sdc Teacher Name Role Phone Marcell Moya MD Primary Care Provider [phone] Encounter Details Date Type Department Care Team (Late st Contact Info) Description 02/11/2021 Orders Only [facility] [address] [place] [address] Melvin Torres MD [address] [place] [address], [address] [address] Nephrotic syndrome with minor glomerular abnormality Social [...] abnormality documented in this encounter Care Teams Sdc Teacher Relationship Specialty Start Date End Date Marcell Moya MD [facility] [address] [place] PCP - General Internal Medicine 12/17/20 documented as of this encounter
--- OUTSIDE RECORDS SUMMARY | 2025-08-03 14:25 | XMS_ITS | Clinical Summary ---
Author Organization [facility] Address [address] [place] [address] Phone Care Team Providers Care Canvas Goods Maker Name Role Phone Marcell Moya MD Primary Care Provider [phone] Allergies No known active allergies Medications SUMAtriptan [...] Medicaid [place] Medicaid [place] Care Teams Canvas Goods Maker Relationship Specialty Start Date End Date Marcell Moya MD [address] [place] PCP - General Internal Medicine 12/17/20
--- OUTSIDE RECORDS SUMMARY | 2025-08-03 14:25 | XMS_ITS | Encounter Summary ---
Author Organization [facility] [employer] Address [address] [address] [place] [address] Care Team Providers Care Handstitching Machine Armhole Feller Name Role Phone Unavailable Primary Care Provider Unavailabl e Encounter Details Date Type Department Care Team (Latest Contact Info) Description 06/02/2019 Abstract [facility] CONVERSIONS Dental, Provider, DDS Social History [...]
--- OUTSIDE RECORDS SUMMARY | 2025-08-03 14:25 | XMS_ITS | Encounter Summary ---
Author Organization [facility] Address [address] [place] [address] Phone Care Team Providers Care Gamewell Operator Name Role Phone Marcell Moya MD Primary Care Provider [phone] Encounter Details Date Type Department Care Team (Late st Contact Info) Description 02/04/2021 Orders Only [facility] [address] [place] [address] Melvin Torres MD [address] [place] [address], [address] [address] Nephrotic syndrome with minor glomerular abnormality Social [...] abnormality documented in this encounter Care Teams Gamewell Operator Relationship Specialty Start Date End Date Marcell Moya MD [address] [place] PCP - General Internal Medicine 12/17/20 documented as of this encounter
[2025-08-03 14:46] LABS: Appearance Urine Clear; Glucose Urine UA Negative (Negative); PH 5.5 (5.0-9.0); Specific Gravity - Urine 1.025 (1.005-1.025); UMIC TRIGGER UA YES
[2025-08-03 15:46] LABS: Total Protein Urine Random 19 mg/dL (<12)
== END 2025-08-03 12:27 ==
LOC: HO.LAB 12:26
PROVIDERS: Visit Provider Internal Medicine Hypertension Specialist
DX: N04.9 Nephrotic syndrome with unspecified morphologic changes (principal); N18.9 Chronic kidney disease, unspecified
CPT/HCPCS: 36415; 80048; 81001; 82570; 84156; 85027